=== PATIENT | female | born 1945 | race Caucasian/White ===

== ENCOUNTER 2018-01-30 13:30 | Outpatient (RCR) | payer MEDICARE, SELFPAY ==
[2018-01-09 13:47] VITALS: BP 149/86; PULSE 100; RESP 18; TEMP 35; BMI 31.8
--- NOTE | 2018-01-09 14:10 | WC ---
PT EXTREMELY IMPATIENT W/ NEW ADMIT QUESTIONS. REFUSED TO ANSWER SOME QUESTIONS. RUDE AT TIMES. COMPLETED MUCH OF ADMIT EVAL POSSIBLE. NOT COOPERATIVE W/ SOME RISK ASSESSMENTS. WILL UPDATE [employer] SAL[employer].
--- NOTE | 2018-01-09 14:51 | PCM.WC.HP ---
(1) Infected sebaceous cyst of skin Status: Chronic Current Visit: Yes Code(s): L72.3 - Sebaceous cyst; L08.9 - Local infection of the skin and subcutaneous tissue, unspecified (2) Obesity (BMI 30.0-34.9) Status: Chronic Current Visit: No Code(s): E66.9 - Obesity, unspecified (3) Hyperlipidemia Status: Chronic Current Visit: No Code(s): E78.5 - Hyperlipidemia, unspecified (4) Diabetes mellitus Status: Chronic Current Visit: Yes Qualifiers: Diabetes mellitus type: type 2 Diabetes mellitus complication status: with skin complications Diabetes mellitus complication detail: with other skin complication Code(s): E11.9 - Type 2 diabetes mellitus without complications (5) Hypertension Status: Chronic Current Visit: No Code(s): I10 - Essential (primary) hypertension (6) Colitis Status: Chronic Current Visit: No Code(s): K52.9 - Noninfective gastroenteritis and colitis, unspecified History of Present Illness Date of Service: 01/09/18 Chief Complaint: Chronic, nonhealing infected sebaceous cyst, right scapular area History of Wound: This is a 72-year-old female who presents with an infected sebaceous cyst cavity which has been present since July 2017. On July 07, 2017, patient noted purulent drainage from the cyst in the right scapular area. She indicates that there was a bump at this site prior to the development of an infection. This was presumably a small subcutaneous cyst. The patient presented to her primary care physician, who treated the patient with oral antibiotics for approximately 10 days. No cultures were performed. The patient's primary care physician conveyed his expectation that the site would subsequently heal, but it has not done so since it initially occurred in July 2017. When the patient was asked how she has been treating the site, she indicates that I cannot even reach it. In other words, no local care has been implemented. The patient lives alone, and has no family members or neighbors who can assist. Upon presentation today, the patient complains of a cyst that will not go away. The patient is known to be diabetic, and indicates that her hemoglobin A1c runs generally between 7 and 9. She was hospitalized at [facility] in [place] for 3 days approximately 3 weeks ago for diarrhea. Past Medical History Past Medical History: Chronic Problems Infected sebaceous cyst of skin (Chronic) Obesity (BMI 30.0-34.9) (Chronic) Hyperlipidemia (Chronic) Diabetes mellitus (Chronic) Hypertension (Chronic) Colitis (Chronic) Past Medical History: The patient has a history of diabetes mellitus, hyperlipidemia, hypertension, and colitis. Her history is negative for myocardial infarction, congestive heart failure, cerebrovascular accident, pulmonary disease, and renal disease. Surgical History: - - Patient is undergone thyroidectomy in July 2017. She is undergone bilateral vein stripping procedures. The ganglion has been excised from her right wrist. She is undergone laparoscopy in the past. She has had bilateral cataract surgery. Right thumb trigger finger surgery has been performed in the past. The patient is a Ab0. Allergies/Adverse Reactions: Allergies acetaminophen [From Vicodin] Allergy (Verified 01/09/18 14:02) Itching cat dander Allergy (Verified 01/09/18 14:04) Unknown dog dander Allergy (Verified 01/09/18 14:04) Unknown hydrocodone bitartrate [From Vicodin] Allergy (Verified 01/09/18 14:02) Itching levofloxacin [From Levaquin] Adverse Reaction (Verified 01/09/18 14:40) Rash beer Adverse Reaction (Uncoded 01/09/18 14:04) Unknown wine Adverse Reaction (Uncoded 01/09/18 14:04) Unknown Home Medications: Ambulatory Orders Medication Instructions Recorded Ascorbic Acid [Vitamin C] 1,000 mg PO DAILY@0800 01/11/14 Aspirin [Aspirin, Baby] 81 mg PO DAILY@0800 01/11/14 Atorvastatin Calcium [Lipitor] 20 mg PO QHS 01/11/14 Calcium Carb/Vitamin D 1 tab PO BIDCM 01/11/14 [Caltrate-600 With Vit D Tab] Celecoxib [Celebrex] 200 mg PO DAILY 01/11/14 Glimepiride [Amaryl] 4 mg PO BID 01/11/14 Lisinopril/Hydrochlorothiazide 1 tablet PO DAILY 01/11/14 [Zestoretic 20/25 Tablet] Multivit-Min/FA/Lycopene/Lut 1 each PO DAILY 01/11/14 [Centrum Silver Tablet] Tizanidine HCl [Zanaflex] 2 mg PO BID 01/11/14 traMADol [Ultram (G)] 100 mg PO TID 01/11/14 Esomeprazole Mag Trihydrate mg PO 01/09/18 [Nexium] Guaifenesin/Pseudoephedrne HCl 1 each PO 01/09/18 [Mucinex D ER 1,200-120 mg Tab] Insulin NPH/Reg 70/30 [Novolin 60 units SC QHS 01/09/18 70/30] Levothyroxine [Synthroid] 125 mcg PO DAILY 01/09/18 Montelukast [Singulair] 10 mg PO DAILY 01/09/18 Vit A/Vit C/Vit E/Zinc/Copper 1 each PO BID 01/09/18 [Preservision Areds Softgel] - Family History Paternal - - Patient is uncertain as to her father's medical history. Her mother at age of 52 with a history of alcoholism and hepatic cirrhosis. Lives: Alone Smoking Status: Never smoker Tobacco Use: Non-smoker Alcohol: None Drugs: None Review of Systems Constitutional: Denies: Chills, Fever, Weight Change Eyes: Denies: Pain, Vision Change HEENT: Denies: Difficulty Hearing, Difficulty Swallowing, Sinus Congestion Cardiovascular: Denies: Chest Pain, Palpitations Respiratory: Denies: Cough, Shortness of Breath Gastrointestinal: Denies: Diarrhea, Nausea, Vomiting Genitourinary: Denies: Dysuria, Hematuria Endocrine: Denies: Heat/ Cold Intolerance, Polydipsia, Polyuria Hematologic/ Lymphatic: Denies: Easy Bruising, Easy Bleeding - Physical Exam Vital Signs Temp Pulse Resp BP 95 F L 100 18 149/86 H 01/09/18 13:47 01/09/18 13:47 01/09/18 13:47 01/09/18 13:47 General: Alert, Oriented x3, Cooperative, No apparent distress, Well developed, Well nourished HEENT: Atraumatic, PERRLA, EOMI, Normocephalic Oral: Moist Mucosa, No Gingival or Mucosal Lesions/ Ulcerations Neck: Supple, No JVD, Negative Carotid Bruits, Negative Hepatojugular Reflux, No Nodes, No Nuchal Rigidity, Trachea Midline Lungs: Clear to auscultation, Normal air movement, No rhonchi, No wheeze, No rales Cardiovascular: Regular rate, Regular Rhythm, Normal S1, Normal S2, No murmurs Abdomen: Soft, Non Tender, Non-Distended, Obese Extremities: No clubbing, No cyanosis, No edema Skin: - - A small opening is noted on the right scapular area. Upon application of manual pressure, abelino purulent material is expressed. This has been cultured both aerobically and anaerobically by means of swab. Only slight erythema is noted. Probing reveals a depth of only 2-3 mm. There is no significant undermining. Wound Measurements and Assessment - Nurse 1 - General Ulcer Measurement Start: 01/09/18 13:41 Freq: Status: Active Protocol: Activity Type Activity Date Activity User E-Sign Co-Sign Detail Recorded Client Recorded Date Recorded By Document 01/09/18 13:47 [facility] [id number] 01/09/18 13:55 [facility] 01/09/18 13:47 Wound Center Nurse 1 [Ulcer Assessment] #1- RIGHT SCAPULA -Combined with other wound No -Current Size (cm) - Length 0.2 -Current Size (cm) - Width 0.2 -Current Size (cm) - Depth 0.5 -Total Square Cm 0.04 -Date of Last Picture (Recall this 01/09/18 field) -Photo Taken Yes -Epithelialization None Present -Tunneling No -Undermining/Tunneling No -Circular Undermining No -Exudate Amt Small (1-33%) -Exudate Type Purulent -Wound Margin Distinct, Outline Attached -Structure Exposed N/A -Texture (Eve-wound Skin Appearance) Scarring -Moisture (Eve-wound Skin Appearance Assessed ) -Color (Eve-wound Skin Appearance) Erythema -Temperature (Eve-wound Skin No Abnormality Appearance) (Pt Warm) -Tenderness on Palpation (Eve-wound Yes Skin Appearance) -Ulcer Cleansing Rinsed/ Irrigated with Saline -Foul Odor after Cleansing No -Anesthetic Used 4% Lidocaine Solution - Nurse 2 - General Ulcer CM Notes Start: 01/09/18 13:41 Freq: Status: Active Protocol: Activity Type Activity Date Activity User E-Sign Co-Sign Detail Recorded Client Recorded Date Recorded By Document 01/09/18 14:33 [id number] 01/09/18 14:45 01/09/18 14:33 Wound Center Nurse 2 [Procedure/Treatment] -Time 14:34 -Correct Patient Yes -Correct Side, Site, Position Yes -Correct Procedure Yes -Procedure Performed No -Post Debridement Size (cm) - Length 0.2 -Post Debridement Size (cm) - Width 0.2 -Post Debridement Size (cm) - Depth 0.5 -Total Square Cm 0.04 -Wound/Ulcer Outcome Not Healed -Ulcer Cleansing Rinsed/ Irrigated with Saline -Foul Odor after Cleansing No -Bioengineered Tissue No -Topical Lidocaine (%) 4 -Lidocaine (ml) 5 -Bleeding Controlled with NA -Treatment Response Procedure Tolerated Well [See Physician Procedure note for Specifics] Musculoskeletal: No Muscle Wasting Neurological: Cranial nerves II-XII grossly intact, Neuro grossly intact Psych/Mental Status: Normal Affect, Appropriate, Alert and oriented to time, place, person, mood and affect Debridement Note Post-Debridement Measurements/Treatment WC - Nurse 2 - General Ulcer CM Notes Start: 01/09/18 13:41 Freq: Status: Active Protocol: Activity Type Activity Date Activity User E-Sign Co-Sign Detail Recorded Client Recorded Date Recorded By Document 01/09/18 14:33 [id number] 01/09/18 14:45 [email or web address] 01/09/18 14:33 Wound Center Nurse 2 #1- RIGHT SCAPULA -Time 14:34 -Correct Patient Yes -Correct Side, Site, Position Yes -Correct Procedure Yes -Procedure Performed No -Post Debridement Size (cm) - Length 0.2 -Post Debridement Size (cm) - Width 0.2 -Post Debridement Size (cm) - Depth 0.5 -Total Square Cm 0.04 -Wound/Ulcer Outcome Not Healed -Ulcer Cleansing Rinsed/ Irrigated with Saline -Foul Odor after Cleansing No -Bioengineered Tissue No -Topical Lidocaine (%) 4 -Lidocaine (ml) 5 -Bleeding Controlled with NA -Treatment Response Procedure Tolerated Well No debridement was completed today Assessment/Plan Active Problems Infected sebaceous cyst of skin (Chronic) Diabetes mellitus (Chronic) Assessment: This is a 72-year-old female with an apparent infected sebaceous cyst in the right scapular area. The cyst appears to have been present for many years prior to the infection, which developed in July 2017. Very little has been rendered in terms of care, but for a brief course of oral antibiotics in July 2017. Because the patient cannot reach the area involved, no local care has been provided. Plan: Cultures have been obtained, and will be awaited. Both aerobic and anaerobic culture swabs have been obtained. We will request recent laboratory results from the hospital in [place], [place], as the patient was hospitalized there only several weeks ago for diarrhea. Optimization of the patient's diabetes mellitus has been recommended. We are to pack the patient's abscess cavity with 1/4 inch Nu Gauze on a daily basis. Because of the area involved, home health nursing care will be required, as the patient has no family members or neighbors which can be of assistance. Patient will return in 1 week for reassessment. It is hoped that the site will heal Cervidil measures. However, ultimately, definitive excision of the cyst or cyst wall may be required for definitive management once the infection has resolved and healing occurred. Influenza vaccine was not administered today. Patient is not a smoker. Patient weighs 180 pounds. She stands 5 feet 3 inches tall. My is 31.9, which places her in a class I category. Weight loss has been recommended, with collaboration with her primary care physician.
--- NOTE | 2018-01-10 12:48 | WC ---
[facility] agency following with patient for dressing changes to the right shoulder. As was stated by Mrs. Schwarz during initial visit, she is not able to do her dressing changes due to location. She lives alone and does not have anyone around who can assist with her dressing changes. Home Health will be able to go out three days a week. Dr. Burnette verified daily dressing changes and mentioned having her come in on the off days for nurse visits. She was contacted regarding Nurse Visits for Thursday 01/11 & 01/13. She expressed concern and displeasure over travelling to the [facility] Center three times a week given limited funds and the hour it takes to get to the center. Information given to her regarding the necessity of having her dressing (10/06 Nu-Gauze Packing) changed daily. Reassurance given to try and have dressings changed to a different treatment regimen upon her follow-up visit with Dr. Burnette next Tuesday.
[2018-01-11 14:05] VITALS: BP 141/82; PULSE 95; RESP 20; TEMP 37.1; BMI 31.8
[2018-01-13 13:24] VITALS: BP 131/84; PULSE 88; RESP 18; TEMP 36.1; BMI 31.8
--- NOTE | 2018-01-13 15:19 | WC ---
Dressing orders changed and approved by Dr. Burnette Orders faxed to [facility] 10/06 NuGauze packing discontinued and replaced using SILVERCEL strips cut to 10/06 and lightly packed into right shoulder ulcer, and covered with gauze and secured with tape. Dressing to be changed every other day.
[2018-01-16 13:58] VITALS: BP 137/82; PULSE 89; RESP 16; TEMP 35.7; BMI 31.8
--- NOTE | 2018-01-16 14:50 | HP.PCM_ITS ---
(1) Infected sebaceous cyst of skin Status: Chronic Current Visit: Yes Code(s): L72.3 - Sebaceous cyst; L08.9 - Local infection of the skin and subcutaneous tissue, unspecified (2) Obesity (BMI 30.0-34.9) Status: Chronic Current Visit: No Code(s): E66.9 - Obesity, unspecified (3) Hyperlipidemia Status: Chronic Current Visit: No Code(s): E78.5 - Hyperlipidemia, unspecified (4) Diabetes mellitus Status: Chronic Current Visit: Yes Qualifiers: Diabetes mellitus type: type 2 Diabetes mellitus complication status: with skin complications Diabetes mellitus complication detail: with other skin complication Code(s): E11.9 - Type 2 diabetes mellitus without complications (5) Hypertension Status: Chronic Current Visit: No Code(s): I10 - Essential (primary) hypertension (6) Colitis Status: Chronic Current Visit: No Code(s): K52.9 - Noninfective gastroenteritis and colitis, unspecified History of Present Illness Date of Service: 01/16/18 Chief Complaint: Chronic, nonhealing infected sebaceous cyst, right scapular area History of Wound: This is a 72-year-old female who presented with an infected sebaceous cyst cavity which has been present since July 2017. On July 07, 2017, patient noted purulent drainage from the cyst in the right scapular area. She indicates that there was a bump at this site prior to the development of an infection. This was presumably a small subcutaneous cyst. The patient presented to her primary care physician, who treated the patient with oral antibiotics for approximately 10 days. No cultures were performed. The patient' s primary care physician conveyed his expectation that the site would subsequently heal, but it has not done so since it initially occurred in July 2017. When the patient was asked how she has been treating the site, she indicates that I cannot even reach it. In other words, no local care has been implemented. The patient lives alone, and has no family members or neighbors who can assist. Upon presentation today, the patient complains of a cyst that will not go away. The patient is known to be diabetic, and indicates that her hemoglobin A1c runs generally between 7 and 9. Past Medical History Past Medical History: Chronic Problems Infected sebaceous cyst of skin (Chronic) Obesity (BMI 30.0-34.9) (Chronic) Hyperlipidemia (Chronic) Diabetes mellitus (Chronic) Hypertension (Chronic) Colitis (Chronic) Surgical History: - - Patient is undergone thyroidectomy in July 2017. She is undergone bilateral vein stripping procedures. The ganglion has been excised from her right wrist. She is undergone laparoscopy in the past. She has had bilateral cataract surgery. Right thumb trigger finger surgery has been performed in the past. The patient is a Ab0. Allergies/Adverse Reactions: Allergies acetaminophen [From Vicodin] Allergy (Verified 01/09/18 14:02) Itching cat dander Allergy (Verified 01/09/18 14:04) Unknown dog dander Allergy (Verified 01/09/18 14:04) Unknown hydrocodone bitartrate [From Vicodin] Allergy (Verified 01/09/18 14:02) Itching levofloxacin [From Levaquin] Adverse Reaction (Verified 01/09/18 14:40) Rash beer Adverse Reaction (Uncoded 01/09/18 14:04) Unknown wine Adverse Reaction (Uncoded 01/09/18 14:04) Unknown Home Medications: Ambulatory Orders Medication Instructions Recorded Ascorbic Acid [Vitamin C] 1,000 mg PO DAILY@0800 01/11/14 Aspirin [Aspirin, Baby] 81 mg PO DAILY@0800 01/11/14 Atorvastatin Calcium [Lipitor] 20 mg PO QHS 01/11/14 Calcium Carb/Vitamin D 1 tab PO BIDCM 01/11/14 [Caltrate-600 With Vit D Tab] Celecoxib [Celebrex] 200 mg PO DAILY 01/11/14 Glimepiride [Amaryl] 4 mg PO BID 01/11/14 Lisinopril/Hydrochlorothiazide 1 tablet PO DAILY 01/11/14 [Zestoretic 20/25 Tablet] Multivit-Min/FA/Lycopene/Lut 1 each PO DAILY 01/11/14 [Centrum Silver Tablet] Tizanidine HCl [Zanaflex] 2 mg PO BID 01/11/14 traMADol [Ultram (G)] 100 mg PO TID 01/11/14 Esomeprazole Mag Trihydrate mg PO 01/09/18 [Nexium] Guaifenesin/Pseudoephedrne HCl 1 each PO 01/09/18 [Mucinex D ER 1,200-120 mg Tab] Insulin NPH/Reg 70/30 [Novolin 60 units SC QHS 01/09/18 70/30] Levothyroxine [Synthroid] 125 mcg PO DAILY 01/09/18 Montelukast [Singulair] 10 mg PO DAILY 01/09/18 Vit A/Vit C/Vit E/Zinc/Copper 1 each PO BID 01/09/18 [Preservision Areds Softgel] - Family History Paternal - - Patient is uncertain as to her father's medical history. Her mother at age of 52 with a history of alcoholism and hepatic cirrhosis. Lives: Alone Smoking Status: Never smoker Tobacco Use: Non-smoker Alcohol: None Drugs: None Review of Systems Constitutional: Denies: Chills, Fever, Weight Change Eyes: Denies: Pain, Vision Change HEENT: Denies: Difficulty Hearing, Difficulty Swallowing, Sinus Congestion Cardiovascular: Denies: Chest Pain, Palpitations Respiratory: Denies: Cough, Shortness of Breath Gastrointestinal: Denies: Diarrhea, Nausea, Vomiting Genitourinary: Denies: Dysuria, Hematuria Endocrine: Denies: Heat/ Cold Intolerance, Polydipsia, Polyuria Hematologic/ Lymphatic: Denies: Easy Bruising, Easy Bleeding - Physical Exam Vital Signs Temp Pulse Resp BP 96.2 F L 89 16 137/82 H 01/16/18 13:58 01/16/18 13:58 01/16/18 13:58 01/16/18 13:58 General: Alert, Oriented x3, Cooperative, No apparent distress, Well developed, Well nourished, - - The patient is obese HEENT: Atraumatic, PERRLA, EOMI, Normocephalic Oral: Moist Mucosa Neck: No JVD Lungs: Normal air movement Abdomen: Non-Distended Extremities: No clubbing, No cyanosis, No edema, No Calf Tenderness Skin: - - A small opening persists in the right scapular area. There is a cavity consistent with prior infected subcutaneous cyst. Dimensions are documented elsewhere. There is no significant change in size or appearance. There is slight erythema associated with the site. No significant drainage is noted. Wound Measurements and Assessment WC - Nurse 1 - General Ulcer Measurement Start: 01/09/18 13:41 Freq: Status: Active Protocol: Activity Type Activity Date Activity User E-Sign Co-Sign Detail Recorded Client Recorded Date Recorded By Document 01/16/18 13:58 [facility] [id number] 01/16/18 14:11 BMF 01/16/18 13:58 Wound Center Nurse 1 [Ulcer Assessment] #1- RIGHT SCAPULA -Combined with other wound No -Current Size (cm) - Length 0.2 -Current Size (cm) - Width 0.5 -Current Size (cm) - Depth 0.3 -Total Square Cm 0.10 -Photo Taken No -Epithelialization None Present -Tunneling No -Undermining/Tunneling No -Circular Undermining No -Exudate Amt Small (1-33%) -Exudate Type Serosanguineous -Wound Margin Distinct, Outline Attached -Granulation Amt Medium (34-66%) -Granulation Quality Red -Slough/Fibrin Yes -Necrosis Amt Small (1-33%) -Necrotic Tissue Type Adherent Slough -Texture (Eve-wound Skin Appearance) Scarring -Moisture (Eve-wound Skin Appearance Dry/Scaly ) -Color (Eve-wound Skin Appearance) Erythema -Temperature (Eve-wound Skin No Abnormality Appearance) (Pt Warm) -Tenderness on Palpation (Eev-wound Yes Skin Appearance) -Ulcer Cleansing Rinsed/ Irrigated with Saline -Foul Odor after Cleansing No -Anesthetic Used 5% Lidocaine Gel WC - Nurse 2 - General Ulcer CM Notes Start: 01/09/18 13:41 Freq: Status: Active Protocol: Activity Type Activity Date Activity User E-Sign Co-Sign Detail Recorded Client Recorded Date Recorded By Document 01/16/18 14:31 [email or web address] [id number] 01/16/18 14:34 [email or web address] 01/16/18 14:31 Wound Center Nurse 2 [Procedure/Treatment] -Time 14:31 -Correct Patient Yes -Correct Side, Site, Position Yes -Correct Procedure Yes -Procedure Performed No -Post Debridement Size (cm) - Length 0.2 -Post Debridement Size (cm) - Width 0.5 -Post Debridement Size (cm) - Depth 0.7 -Total Square Cm 0.10 -Ulcer Cleansing Rinsed/ Irrigated with Saline -Foul Odor after Cleansing No -Bioengineered Tissue No -Topical Lidocaine (%) 4 -Lidocaine (ml) 5 -Bleeding Controlled with NA -Treatment Response Procedure Tolerated Well [See Physician Procedure note for Specifics] Pain Scale: 0-10 Numeric [Pain] -Is Patient Pain Free? Yes Musculoskeletal: No Muscle Wasting Neurological: Cranial nerves II-XII grossly intact, Neuro grossly intact Psych/Mental Status: Normal Affect, Appropriate, Alert and oriented to time, place, person, mood and affect Debridement Note Post-Debridement Measurements/Treatment WC - Nurse 2 - General Ulcer CM Notes Start: 01/09/18 13:41 Freq: Status: Active Protocol: Activity Type Activity Date Activity User E-Sign Co-Sign Detail Recorded Client Recorded Date Recorded By Document 01/09/18 14:33 [id number] 01/09/18 14:45 JS Document 01/16/18 14:31 [id number] 01/16/18 14:34 JS 01/09/18 01/16/18 14:33 14:31 Wound Center Nurse 2 #1- RIGHT SCAPULA -Time 14:34 14:31 -Correct Patient Yes Yes -Correct Side, Site, Position Yes Yes -Correct Procedure Yes Yes -Procedure Performed No No -Post Debridement Size (cm) - Length 0.2 0.2 -Post Debridement Size (cm) - Width 0.2 0.5 -Post Debridement Size (cm) - Depth 0.5 0.7 -Total Square Cm 0.04 0.10 -Wound/Ulcer Outcome Not Healed -Ulcer Cleansing Rinsed/ Rinsed/ Irrigated with Irrigated with Saline Saline -Foul Odor after Cleansing No No -Bioengineered Tissue No No -Topical Lidocaine (%) 4 4 -Lidocaine (ml) 5 5 -Bleeding Controlled with NA NA -Treatment Response Procedure Procedure Tolerated Well Tolerated Well Pain Scale: 0-10 Numeric Is Patient Pain Free? Yes No debridement was completed today Assessment/Plan Active Problems Infected sebaceous cyst of skin (Chronic) Diabetes mellitus (Chronic) Assessment: This is a 72-year-old female with an apparent infected sebaceous cyst in the right scapular area. The cyst appears to have been present for many years prior to the infection, which developed in July 2017. Very little has been rendered in terms of care, but for a brief course of oral antibiotics in July 2017. Because the patient cannot reach the area involved , no local care had been implemented prior to her presentation here. A culture the patient's wound, obtained at her initial visit, was positive for MRSA. Plan: Cultures have been obtained, and are positive for MRSA. Patient has been started on doxycycline 100 mg p.o. twice daily for total of 14 days. We are using silver cell to pack the wound. Home health care nursing has been recruited to assist in daily wound care. Laboratory studies have been reviewed from the hospital in [place]. But for mild anemia, there are no significant abnormalities noted. Optimization of the patient's diabetes mellitus has been recommended. We will continue packing the patient's wound with Silver Renetta. Because of the area involved, home health nursing care will be continued, as the patient has no family members or neighbors which can be of assistance. Patient will return in 1 week for reassessment. It is hoped that the site will heal by conservative measures. However, ultimately, definitive excision of the cyst or cyst wall may be required for definitive management once the infection has resolved and healing occurred. Influenza vaccine was not administered today. Patient is not a smoker. Patient weighs 180 pounds. She stands 5 feet 3 inches tall. My is 31.9, which places her in a class I category. Weight loss has been recommended, with collaboration with her primary care physician.
--- NOTE | 2018-01-23 09:51 | WC ---
Tuesday01/20/18 16:45 Mrs. Schwarz called-in expressing frustration over phone conversation with Home Health, who instructed her to contact the Wound Center right away in regards to dressing changes (Shoulder dressing was last changed Tuesday, and will not be changed till Tuesday). [facility] contacted ([facility]) to provide care. Demographics, Orders, and Progress Notes faxed to the agency at 4:50 pm ). Plans were for her to be seen on Tuesday. Tuesday01/23/18 09:35 am F/U call to [facility] regarding Tuesday's visit. Informed that fax was not received (wrong fax #), patient was not seen, however agency did speak with Mrs. Schwarz. Demographics, Orders, and Progress Notes re-faxed to ) the agency today at 10:12 am; fax receipt received. Patient is scheduled to be seen by Dr. Burnette today @ 3:30 in the Wound Center.
[2018-01-23 16:05] VITALS: BP 137/73; PULSE 96; RESP 18; TEMP 36.3; BMI 31.8
--- NOTE | 2018-01-23 16:47 | PCM.WC.HP ---
(1) Infected sebaceous cyst of skin Status: Chronic Current Visit: Yes Code(s): L72.3 - Sebaceous cyst; L08.9 - Local infection of the skin and subcutaneous tissue, unspecified (2) Obesity (BMI 30.0-34.9) Status: Chronic Current Visit: No Code(s): E66.9 - Obesity, unspecified (3) Hyperlipidemia Status: Chronic Current Visit: No Code(s): E78.5 - Hyperlipidemia, unspecified (4) Diabetes mellitus Status: Chronic Current Visit: Yes Qualifiers: Diabetes mellitus type: type 2 Diabetes mellitus complication status: with skin complications Diabetes mellitus complication detail: with other skin complication Code(s): E11.9 - Type 2 diabetes mellitus without complications (5) Hypertension Status: Chronic Current Visit: No Qualifiers: Hypertension type: essential hypertension Qualified Code(s): I10 - Essential (primary) hypertension Code(s): I10 - Essential (primary) hypertension (6) Colitis Status: Chronic Current Visit: No Code(s): K52.9 - Noninfective gastroenteritis and colitis, unspecified History of Present Illness Date of Service: 01/23/18 Chief Complaint: Chronic, nonhealing infected sebaceous cyst, right scapular area History of Wound: This is a 72-year-old female who presented with an infected sebaceous cyst cavity which has been present since July 2017. On July 07, 2017, patient noted purulent drainage from the cyst in the right scapular area. She indicates that there was a bump at this site prior to the development of an infection. This was presumably a small subcutaneous cyst. The patient presented to her primary care physician, who treated the patient with oral antibiotics for approximately 10 days. No cultures were performed. The patient's primary care physician conveyed his expectation that the site would subsequently heal, but it has not done so since it initially occurred in July 2017. When the patient was asked how she has been treating the site, she indicates that I cannot even reach it. In other words, no local care had been implemented. The patient lives alone, and has no family members or neighbors who can assist. Upon presentation today, the patient complains of a cyst that will not go away. The patient is known to be diabetic, and indicates that her hemoglobin A1c runs generally between 7 and 9. Past Medical History Past Medical History: Chronic Problems Infected sebaceous cyst of skin (Chronic) Obesity (BMI 30.0-34.9) (Chronic) Hyperlipidemia (Chronic) Diabetes mellitus (Chronic) Hypertension (Chronic) Colitis (Chronic) Surgical History: - - Patient is undergone thyroidectomy in July 2017. She is undergone bilateral vein stripping procedures. The ganglion has been excised from her right wrist. She is undergone laparoscopy in the past. She has had bilateral cataract surgery. Right thumb trigger finger surgery has been performed in the past. The patient is a Ab0. Allergies/Adverse Reactions: Allergies acetaminophen [From Vicodin] Allergy (Verified 01/09/18 14:02) Itching cat dander Allergy (Verified 01/09/18 14:04) Unknown dog dander Allergy (Verified 01/09/18 14:04) Unknown hydrocodone bitartrate [From Vicodin] Allergy (Verified 01/09/18 14:02) Itching levofloxacin [From Levaquin] Adverse Reaction (Verified 01/09/18 14:40) Rash beer Adverse Reaction (Uncoded 01/09/18 14:04) Unknown wine Adverse Reaction (Uncoded 01/09/18 14:04) Unknown Home Medications: Ambulatory Orders Medication Instructions Recorded Ascorbic Acid [Vitamin C] 1,000 mg PO DAILY@0800 01/11/14 Aspirin [Aspirin, Baby] 81 mg PO DAILY@0800 01/11/14 Atorvastatin Calcium [Lipitor] 20 mg PO QHS 01/11/14 Calcium Carb/Vitamin D 1 tab PO BIDCM 01/11/14 [Caltrate-600 With Vit D Tab] Celecoxib [Celebrex] 200 mg PO DAILY 01/11/14 Glimepiride [Amaryl] 4 mg PO BID 01/11/14 Lisinopril/Hydrochlorothiazide 1 tablet PO DAILY 01/11/14 [Zestoretic 20/25 Tablet] Multivit-Min/FA/Lycopene/Lut 1 each PO DAILY 01/11/14 [Centrum Silver Tablet] Tizanidine HCl [Zanaflex] 2 mg PO BID 01/11/14 traMADol [Ultram (G)] 100 mg PO TID 01/11/14 Esomeprazole Mag Trihydrate mg PO 01/09/18 [Nexium] Guaifenesin/Pseudoephedrne HCl 1 each PO 01/09/18 [Mucinex D ER 1,200-120 mg Tab] Insulin NPH/Reg 70/30 [Novolin 60 units SC QHS 01/09/18 70/30] Levothyroxine [Synthroid] 125 mcg PO DAILY 01/09/18 Montelukast [Singulair] 10 mg PO DAILY 01/09/18 Vit A/Vit C/Vit E/Zinc/Copper 1 each PO BID 01/09/18 [Preservision Areds Softgel] - Family History Paternal - - Patient is uncertain as to her father's medical history. Her mother at age of 52 with a history of alcoholism and hepatic cirrhosis. Lives: Alone Smoking Status: Never smoker Tobacco Use: Non-smoker Alcohol: None Drugs: None Review of Systems Constitutional: Denies: Chills, Fever, Weight Change Eyes: Denies: Pain, Vision Change HEENT: Denies: Difficulty Hearing, Difficulty Swallowing, Sinus Congestion Cardiovascular: Denies: Chest Pain, Palpitations Respiratory: Denies: Cough, Shortness of Breath Gastrointestinal: Denies: Diarrhea, Nausea, Vomiting Genitourinary: Denies: Dysuria, Hematuria Endocrine: Denies: Heat/ Cold Intolerance, Polydipsia, Polyuria Hematologic/ Lymphatic: Denies: Easy Bruising, Easy Bleeding - Physical Exam Vital Signs Temp Pulse Resp BP 97.3 F L 96 18 137/73 H 01/23/18 16:05 01/23/18 16:05 01/23/18 16:05 01/23/18 16:05 General: Alert, Oriented x3, Cooperative, No apparent distress, Well developed, Well nourished HEENT: Atraumatic, PERRLA, EOMI, Normocephalic Oral: Moist Mucosa Neck: No JVD Lungs: Normal air movement Abdomen: Non-Distended Extremities: No clubbing, No cyanosis, No edema, No Calf Tenderness Skin: No rashes, - - The abscess cavity in the right scapular area is smaller in size. Dimensions are documented elsewhere. There is no significant erythema or cellulitis. Wound Measurements and Assessment WC - Nurse 1 - General Ulcer Measurement Start: 01/09/18 13:41 Freq: Status: Active Protocol: Activity Type Activity Date Activity User E-Sign Co-Sign Detail Recorded Client Recorded Date Recorded By Document 01/23/18 16:05 MANOLO [id number] 01/23/18 16:13 MANOLO 04/23/18 16:05 Wound Center Nurse 1 [Ulcer Assessment] #1- RIGHT SCAPULA -Combined with other wound No -Current Size (cm) - Length 0.3 -Current Size (cm) - Width 0.6 -Current Size (cm) - Depth 0.3 -Total Square Cm 0.18 -Photo Taken No -Epithelialization Small 1-33% -Tunneling No -Undermining/Tunneling No -Circular Undermining No -Exudate Amt Small (1-33%) -Exudate Type Serosanguineous -Wound Margin Flat & Intact -Granulation Amt Large (67-100%) -Granulation Quality Red -Slough/Fibrin Yes -Necrosis Amt Small (1-33%) -Necrotic Tissue Type Adherent Slough -Structure Exposed N/A -Texture (Eve-wound Skin Appearance) Assessed -Moisture (Eve-wound Skin Appearance Assessed ) Dry/Scaly -Color (Eve-wound Skin Appearance) Assessed -Temperature (Eve-wound Skin No Abnormality Appearance) (Pt Warm) -Tenderness on Palpation (Eve-wound No Skin Appearance) -Ulcer Cleansing Rinsed/ Irrigated with Saline -Foul Odor after Cleansing No -Anesthetic Used 4% Lidocaine Solution [Edema Assessment] -Lower Limb Edema Present NA - Nurse 2 - General Ulcer CM Notes Start: 01/09/18 13:41 Freq: Status: Active Protocol: Activity Type Activity Date Activity User E-Sign Co-Sign Detail Recorded Client Recorded Date Recorded By Document 01/23/18 16:38 [id number] 01/23/18 16:40 01/23/18 16:38 Wound Center Nurse 2 [Procedure/Treatment] #1- RIGHT SCAPULA -Time 16:39 -Correct Patient Yes -Correct Side, Site, Position Yes -Correct Procedure Yes -Procedure Performed Yes -Type of Procedure Debridement -Clinical Debridement Subcutaneous -Post Debridement Size (cm) - Length 0.3 -Post Debridement Size (cm) - Width 0.6 -Post Debridement Size (cm) - Depth 0.5 -Total Square Cm 0.18 -Wound/Ulcer Outcome Not Healed -Ulcer Cleansing Rinsed/ Irrigated with Saline -Foul Odor after Cleansing No -Bioengineered Tissue No -Bleeding Controlled with Pressure -Treatment Response Procedure Tolerated Well [See Physician Procedure note for Specifics] Pain Scale: 0-10 Numeric [Pain] -Is Patient Pain Free? Yes Neurological: Cranial nerves II-XII grossly intact, Neuro grossly intact Psych/Mental Status: Normal Affect, Appropriate, Alert and oriented to time, place, person, mood and affect Debridement Note Post-Debridement Measurements/Treatment WC - Nurse 2 - General Ulcer CM Notes Start: 01/09/18 13:41 Freq: Status: Active Protocol: Activity Type Activity Date Activity User E-Sign Co-Sign Detail Recorded Client Recorded Date Recorded By Document 01/09/18 14:33 [id number] 01/09/18 14:45 JS Document 01/16/18 14:31 JS [id number] 01/16/18 14:34 JS Document 01/23/18 16:38 [id number] 01/23/18 16:40 01/09/18 01/16/18 01/23/18 14:33 14:31 16:38 Wound Center Nurse 2 #1- RIGHT SCAPULA -Time 14:34 14:31 16:39 -Correct Patient Yes Yes Yes -Correct Side, Site, Position Yes Yes Yes -Correct Procedure Yes Yes Yes -Procedure Performed No No Yes -Type of Procedure Debridement -Clinical Debridement Subcutaneous -Post Debridement Size (cm) - Length 0.2 0.2 0.3 -Post Debridement Size (cm) - Width 0.2 0.5 0.6 -Post Debridement Size (cm) - Depth 0.5 0.7 0.5 -Total Square Cm 0.04 0.10 0.18 -Wound/Ulcer Outcome Not Healed Not Healed -Ulcer Cleansing Rinsed/ Rinsed/ Rinsed/ Irrigated with Irrigated with Irrigated with Saline Saline Saline -Foul Odor after Cleansing No No No -Bioengineered Tissue No No No -Topical Lidocaine (%) 4 4 -Lidocaine (ml) 5 5 -Bleeding Controlled with NA NA Pressure -Treatment Response Procedure Procedure Procedure Tolerated Well Tolerated Well Tolerated Well Pain Scale: 0-10 Numeric Is Patient Pain Free? Yes Yes Laterality: Right - Scapular abscess cavity Type of Debridement: Excisional debridement Anesthesia Used: 4% Lidocaine Solution Depth: Down to and including healthy tissue, in the subcutaneous layer Percentage of wound debrided: 100 Instrument Used: 5mm curette Severity: Fat Layer Exposed Amount of bleeding with debridement: Mild Bleeding Controlled with: Compression and gauze Patient tolerated procedure well Assessment/Plan Active Problems Infected sebaceous cyst of skin (Chronic) Diabetes mellitus (Chronic) Assessment: This is a 72-year-old female with an apparent infected sebaceous cyst in the right scapular area. The cyst appears to have been present for many years prior to the infection, which developed in July 2017. Very little had been rendered in terms of care, but for a brief course of oral antibiotics in July 2017. Because the patient cannot reach the area involved, no local care had been implemented prior to her presentation here. A culture the patient's wound, obtained at her initial visit, was positive for MRSA. The patient was started on doxycycline 100 mg p.o. twice daily for total of 14 days, which continues until the current time. We have implemented the use of Silver Renetta, in anticipation that this would be changed by home health nursing every day or every other day. However, there has been some difficulty in arranging home health nursing care, the patient has been without attention to the wound since her last visit here. Efforts are underway to arrange home health nursing care, but with difficulties. The patient again denies that she has any friends or relatives who can assist her in the management of her wound. The location of the wound precludes the patient from packing by herself. She has been offered the option of returning to the wound center periodically, but has transportation issues. The patient's labs have been reviewed, and are relatively unremarkable. She has a mild anemia with a hemoglobin of 11.1 and hematocrit of 33.7. Platelet count is 214,000. MERLE globin A1c is 9.0. Patient's potassium is 3.7. Sodium is 139, chloride 104, BUN 13, creatinine 0.9, glucose 202. Plan: Cultures have been obtained, and are positive for MRSA. Patient has been started on doxycycline 100 mg p.o. twice daily for total of 14 days. We are using Silver Renetta to pack the wound. Home health care nursing has been recruited to assist in daily wound care, but difficulties have been encountered, and troubleshooting continues. Optimization of the patient's diabetes mellitus has been recommended. We will continue packing the patient's wound with Silver Renetta. We are to continue to arrange home health nursing care for wound packing changes. Because of the area involved, home health nursing care will be continued, as the patient has no family members or neighbors which can be of assistance. Patient will return in 1 week for reassessment. It is hoped that the site will heal by conservative measures. However, ultimately, definitive excision of the cyst or cyst wall may be required for definitive management once the infection has resolved and healing occurred. Influenza vaccine was not administered today. Patient is not a smoker. Patient weighs 180 pounds. She stands 5 feet 3 inches tall. My is 31.9, which places her in a class I category. Weight loss has been recommended, with collaboration with her primary care physician.
--- NOTE | 2018-01-23 16:56 | HP.PCM_ITS ---
(1) Infected sebaceous cyst of skin Status: Chronic Current Visit: Yes Code(s): L72.3 - Sebaceous cyst; L08.9 - Local infection of the skin and subcutaneous tissue, unspecified (2) Obesity (BMI 30.0-34.9) Status: Chronic Current Visit: No Code(s): E66.9 - Obesity, unspecified (3) Hyperlipidemia Status: Chronic Current Visit: No Code(s): E78.5 - Hyperlipidemia, unspecified (4) Diabetes mellitus Status: Chronic Current Visit: Yes Qualifiers: Diabetes mellitus type: type 2 Diabetes mellitus complication status: with skin complications Diabetes mellitus complication detail: with other skin complication Code(s): E11.9 - Type 2 diabetes mellitus without complications (5) Hypertension Status: Chronic Current Visit: No Qualifiers: Hypertension type: essential hypertension Qualified Code(s): I10 - Essential (primary) hypertension Code(s): I10 - Essential (primary) hypertension (6) Colitis Status: Chronic Current Visit: No Code(s): K52.9 - Noninfective gastroenteritis and colitis, unspecified History of Present Illness Date of Service: 01/23/18 Chief Complaint: Chronic, nonhealing infected sebaceous cyst, right scapular area History of Wound: This is a 72-year-old female who presented with an infected sebaceous cyst cavity which has been present since July 2017. On July 07, 2017, patient noted purulent drainage from the cyst in the right scapular area. She indicates that there was a bump at this site prior to the development of an infection. This was presumably a small subcutaneous cyst. The patient presented to her primary care physician, who treated the patient with oral antibiotics for approximately 10 days. No cultures were performed. The patient' s primary care physician conveyed his expectation that the site would subsequently heal, but it has not done so since it initially occurred in July 2017. When the patient was asked how she has been treating the site, she indicates that I cannot even reach it. In other words, no local care had been implemented. The patient lives alone, and has no family members or neighbors who can assist. Upon presentation today, the patient complains of a cyst that will not go away. The patient is known to be diabetic, and indicates that her hemoglobin A1c runs generally between 7 and 9. Past Medical History Past Medical History: Chronic Problems Infected sebaceous cyst of skin (Chronic) Obesity (BMI 30.0-34.9) (Chronic) Hyperlipidemia (Chronic) Diabetes mellitus (Chronic) Hypertension (Chronic) Colitis (Chronic) Surgical History: - - Patient is undergone thyroidectomy in July 2017. She is undergone bilateral vein stripping procedures. The ganglion has been excised from her right wrist. She is undergone laparoscopy in the past. She has had bilateral cataract surgery. Right thumb trigger finger surgery has been performed in the past. The patient is a Ab0. Allergies/Adverse Reactions: Allergies acetaminophen [From Vicodin] Allergy (Verified 01/09/18 14:02) Itching cat dander Allergy (Verified 01/09/18 14:04) Unknown dog dander Allergy (Verified 01/09/18 14:04) Unknown hydrocodone bitartrate [From Vicodin] Allergy (Verified 01/09/18 14:02) Itching levofloxacin [From Levaquin] Adverse Reaction (Verified 01/09/18 14:40) Rash beer Adverse Reaction (Uncoded 01/09/18 14:04) Unknown wine Adverse Reaction (Uncoded 01/09/18 14:04) Unknown Home Medications: Ambulatory Orders Medication Instructions Recorded Ascorbic Acid [Vitamin C] 1,000 mg PO DAILY@0800 01/11/14 Aspirin [Aspirin, Baby] 81 mg PO DAILY@0800 01/11/14 Atorvastatin Calcium [Lipitor] 20 mg PO QHS 01/11/14 Calcium Carb/Vitamin D 1 tab PO BIDCM 01/11/14 [Caltrate-600 With Vit D Tab] Celecoxib [Celebrex] 200 mg PO DAILY 01/11/14 Glimepiride [Amaryl] 4 mg PO BID 01/11/14 Lisinopril/Hydrochlorothiazide 1 tablet PO DAILY 01/11/14 [Zestoretic 20/25 Tablet] Multivit-Min/FA/Lycopene/Lut 1 each PO DAILY 01/11/14 [Centrum Silver Tablet] Tizanidine HCl [Zanaflex] 2 mg PO BID 01/11/14 traMADol [Ultram (G)] 100 mg PO TID 01/11/14 Esomeprazole Mag Trihydrate mg PO 01/09/18 [Nexium] Guaifenesin/Pseudoephedrne HCl 1 each PO 01/09/18 [Mucinex D ER 1,200-120 mg Tab] Insulin NPH/Reg 70/30 [Novolin 60 units SC QHS 01/09/18 70/30] Levothyroxine [Synthroid] 125 mcg PO DAILY 01/09/18 Montelukast [Singulair] 10 mg PO DAILY 01/09/18 Vit A/Vit C/Vit E/Zinc/Copper 1 each PO BID 01/09/18 [Preservision Areds Softgel] - Family History Paternal - - Patient is uncertain as to her father's medical history. Her mother at age of 52 with a history of alcoholism and hepatic cirrhosis. Lives: Alone Smoking Status: Never smoker Tobacco Use: Non-smoker Alcohol: None Drugs: None Review of Systems Constitutional: Denies: Chills, Fever, Weight Change Eyes: Denies: Pain, Vision Change HEENT: Denies: Difficulty Hearing, Difficulty Swallowing, Sinus Congestion Cardiovascular: Denies: Chest Pain, Palpitations Respiratory: Denies: Cough, Shortness of Breath Gastrointestinal: Denies: Diarrhea, Nausea, Vomiting Genitourinary: Denies: Dysuria, Hematuria Endocrine: Denies: Heat/ Cold Intolerance, Polydipsia, Polyuria Hematologic/ Lymphatic: Denies: Easy Bruising, Easy Bleeding - Physical Exam Vital Signs Temp Pulse Resp BP 97.3 F L 96 18 137/73 H 01/23/18 16:05 01/23/18 16:05 01/23/18 16:05 01/23/18 16:05 General: Alert, Oriented x3, Cooperative, No apparent distress, Well developed, Well nourished HEENT: Atraumatic, PERRLA, EOMI, Normocephalic Oral: Moist Mucosa Neck: No JVD Lungs: Normal air movement Abdomen: Non-Distended Extremities: No clubbing, No cyanosis, No edema, No Calf Tenderness Skin: No rashes, - - The abscess cavity in the right scapular area is smaller in size. Dimensions are documented elsewhere. There is no significant erythema or cellulitis. Wound Measurements and Assessment WC - Nurse 1 - General Ulcer Measurement Start: 01/09/18 13:41 Freq: Status: Active Protocol: Activity Type Activity Date Activity User E-Sign Co-Sign Detail Recorded Client Recorded Date Recorded By Document 01/23/18 16:05 MANOLO [id number] 01/23/18 16:13 MANOLO 04/23/18 16:05 Wound Center Nurse 1 [Ulcer Assessment] #1- RIGHT SCAPULA -Combined with other wound No -Current Size (cm) - Length 0.3 -Current Size (cm) - Width 0.6 -Current Size (cm) - Depth 0.3 -Total Square Cm 0.18 -Photo Taken No -Epithelialization Small 1-33% -Tunneling No -Undermining/Tunneling No -Circular Undermining No -Exudate Amt Small (1-33%) -Exudate Type Serosanguineous -Wound Margin Flat & Intact -Granulation Amt Large (67-100%) -Granulation Quality Red -Slough/Fibrin Yes -Necrosis Amt Small (1-33%) -Necrotic Tissue Type Adherent Slough -Structure Exposed N/A -Texture (Eve-wound Skin Appearance) Assessed -Moisture (Eve-wound Skin Appearance Assessed ) Dry/Scaly -Color (Eve-wound Skin Appearance) Assessed -Temperature (Eve-wound Skin No Abnormality Appearance) (Pt Warm) -Tenderness on Palpation (Eve-wound No Skin Appearance) -Ulcer Cleansing Rinsed/ Irrigated with Saline -Foul Odor after Cleansing No -Anesthetic Used 4% Lidocaine Solution [Edema Assessment] -Lower Limb Edema Present NA - Nurse 2 - General Ulcer CM Notes Start: 01/09/18 13:41 Freq: Status: Active Protocol: Activity Type Activity Date Activity User E-Sign Co-Sign Detail Recorded Client Recorded Date Recorded By Document 01/23/18 16:38 [id number] 01/23/18 16:40 01/23/18 16:38 Wound Center Nurse 2 [Procedure/Treatment] #1- RIGHT SCAPULA -Time 16:39 -Correct Patient Yes -Correct Side, Site, Position Yes -Correct Procedure Yes -Procedure Performed Yes -Type of Procedure Debridement -Clinical Debridement Subcutaneous -Post Debridement Size (cm) - Length 0.3 -Post Debridement Size (cm) - Width 0.6 -Post Debridement Size (cm) - Depth 0.5 -Total Square Cm 0.18 -Wound/Ulcer Outcome Not Healed -Ulcer Cleansing Rinsed/ Irrigated with Saline -Foul Odor after Cleansing No -Bioengineered Tissue No -Bleeding Controlled with Pressure -Treatment Response Procedure Tolerated Well [See Physician Procedure note for Specifics] Pain Scale: 0-10 Numeric [Pain] -Is Patient Pain Free? Yes Neurological: Cranial nerves II-XII grossly intact, Neuro grossly intact Psych/Mental Status: Normal Affect, Appropriate, Alert and oriented to time, place, person, mood and affect Debridement Note Post-Debridement Measurements/Treatment WC - Nurse 2 - General Ulcer CM Notes Start: 01/09/18 13:41 Freq: Status: Active Protocol: Activity Type Activity Date Activity User E-Sign Co-Sign Detail Recorded Client Recorded Date Recorded By Document 01/09/18 14:33 [id number] 01/09/18 14:45 JS Document 01/16/18 14:31 JS [id number] 01/16/18 14:34 JS Document 01/23/18 16:38 [id number] 01/23/18 16:40 01/09/18 01/16/18 01/23/18 14:33 14:31 16:38 Wound Center Nurse 2 #1- RIGHT SCAPULA -Time 14:34 14:31 16:39 -Correct Patient Yes Yes Yes -Correct Side, Site, Position Yes Yes Yes -Correct Procedure Yes Yes Yes -Procedure Performed No No Yes -Type of Procedure Debridement -Clinical Debridement Subcutaneous -Post Debridement Size (cm) - Length 0.2 0.2 0.3 -Post Debridement Size (cm) - Width 0.2 0.5 0.6 -Post Debridement Size (cm) - Depth 0.5 0.7 0.5 -Total Square Cm 0.04 0.10 0.18 -Wound/Ulcer Outcome Not Healed Not Healed -Ulcer Cleansing Rinsed/ Rinsed/ Rinsed/ Irrigated with Irrigated with Irrigated with Saline Saline Saline -Foul Odor after Cleansing No No No -Bioengineered Tissue No No No -Topical Lidocaine (%) 4 4 -Lidocaine (ml) 5 5 -Bleeding Controlled with NA NA Pressure -Treatment Response Procedure Procedure Procedure Tolerated Well Tolerated Well Tolerated Well Pain Scale: 0-10 Numeric Is Patient Pain Free? Yes Yes Laterality: Right - Scapular abscess cavity Type of Debridement: Excisional debridement Anesthesia Used: 4% Lidocaine Solution Depth: Down to and including healthy tissue, in the subcutaneous layer Percentage of wound debrided: 100 Instrument Used: 5mm curette Severity: Fat Layer Exposed Amount of bleeding with debridement: Mild Bleeding Controlled with: Compression and gauze Patient tolerated procedure well Assessment/Plan Active Problems Infected sebaceous cyst of skin (Chronic) Diabetes mellitus (Chronic) Assessment: This is a 72-year-old female with an apparent infected sebaceous cyst in the right scapular area. The cyst appears to have been present for many years prior to the infection, which developed in July 2017. Very little had been rendered in terms of care, but for a brief course of oral antibiotics in July 2017. Because the patient cannot reach the area involved , no local care had been implemented prior to her presentation here. A culture the patient's wound, obtained at her initial visit, was positive for MRSA. The patient was started on doxycycline 100 mg p.o. twice daily for total of 14 days , which continues until the current time. We have implemented the use of Silver Renetta, in anticipation that this would be changed by home health nursing every day or every other day. However, there has been some difficulty in arranging home health nursing care, the patient has been without attention to the wound since her last visit here. Efforts are underway to arrange home health nursing care, but with difficulties. The patient again denies that she has any friends or relatives who can assist her in the management of her wound. The location of the wound precludes the patient from packing by herself. She has been offered the option of returning to the wound center periodically, but has transportation issues. The patient's labs have been reviewed, and are relatively unremarkable. She has a mild anemia with a hemoglobin of 11.1 and hematocrit of 33.7. Platelet count is 214,000. MERLE globin A1c is 9.0. Patient 's potassium is 3.7. Sodium is 139, chloride 104, BUN 13, creatinine 0.9, glucose 202. Plan: Cultures have been obtained, and are positive for MRSA. Patient has been started on doxycycline 100 mg p.o. twice daily for total of 14 days. We are using Silver Renetta to pack the wound. Home health care nursing has been recruited to assist in daily wound care, but difficulties have been encountered , and troubleshooting continues. Optimization of the patient's diabetes mellitus has been recommended. We will continue packing the patient's wound with Silver Renetta. We are to continue to arrange home health nursing care for wound packing changes. Because of the area involved, home health nursing care will be continued, as the patient has no family members or neighbors which can be of assistance. Patient will return in 1 week for reassessment. It is hoped that the site will heal by conservative measures. However, ultimately, definitive excision of the cyst or cyst wall may be required for definitive management once the infection has resolved and healing occurred. Influenza vaccine was not administered today. Patient is not a smoker. Patient weighs 180 pounds. She stands 5 feet 3 inches tall. My is 31.9, which places her in a class I category. Weight loss has been recommended, with collaboration with her primary care physician.
[2018-01-30 13:26] VITALS: BP 126/71; PULSE 105; RESP 18; TEMP 36.2; BMI 31.8
--- NOTE | 2018-01-30 14:30 | PCM.WC.HP ---
(1) Infected sebaceous cyst of skin Status: Chronic Current Visit: Yes Code(s): L72.3 - Sebaceous cyst; L08.9 - Local infection of the skin and subcutaneous tissue, unspecified (2) Obesity (BMI 30.0-34.9) Status: Chronic Current Visit: No Code(s): E66.9 - Obesity, unspecified (3) Hyperlipidemia Status: Chronic Current Visit: No Code(s): E78.5 - Hyperlipidemia, unspecified (4) Diabetes mellitus Status: Chronic Current Visit: Yes Qualifiers: Diabetes mellitus type: type 2 Diabetes mellitus complication status: with skin complications Diabetes mellitus complication detail: with other skin complication Code(s): E11.9 - Type 2 diabetes mellitus without complications (5) Hypertension Status: Chronic Current Visit: No Qualifiers: Hypertension type: essential hypertension Qualified Code(s): I10 - Essential (primary) hypertension Code(s): I10 - Essential (primary) hypertension (6) Colitis Status: Chronic Current Visit: No Code(s): K52.9 - Noninfective gastroenteritis and colitis, unspecified History of Present Illness Date of Service: 01/30/18 Chief Complaint: Chronic, nonhealing infected sebaceous cyst, right scapular area History of Wound: This is a 72-year-old female who presented with an infected sebaceous cyst cavity which has been present since July 2017. On July 07, 2017, patient noted purulent drainage from the cyst in the right scapular area. She indicates that there was a bump at this site prior to the development of an infection. This was presumably a small subcutaneous cyst. The patient presented to her primary care physician, who treated the patient with oral antibiotics for approximately 10 days. No cultures were performed. The patient's primary care physician conveyed his expectation that the site would subsequently heal, but it has not done so since it initially occurred in July 2017. When the patient was asked how she has been treating the site, she indicateed that I cannot even reach it. In other words, no local care had been implemented. The patient lives alone, and has no family members or neighbors who can assist. Upon initial presentation, the patient complained of a cyst that will not go away. The patient is known to be diabetic, and indicates that her hemoglobin A1c runs generally between 7 and 9. Past Medical History Past Medical History: Chronic Problems Infected sebaceous cyst of skin (Chronic) Obesity (BMI 30.0-34.9) (Chronic) Hyperlipidemia (Chronic) Diabetes mellitus (Chronic) Hypertension (Chronic) Colitis (Chronic) Surgical History: - - Patient is undergone thyroidectomy in July 2017. She is undergone bilateral vein stripping procedures. The ganglion has been excised from her right wrist. She is undergone laparoscopy in the past. She has had bilateral cataract surgery. Right thumb trigger finger surgery has been performed in the past. The patient is a Ab0. Allergies/Adverse Reactions: Allergies acetaminophen [From Vicodin] Allergy (Verified 01/09/18 14:02) Itching cat dander Allergy (Verified 01/09/18 14:04) Unknown dog dander Allergy (Verified 01/09/18 14:04) Unknown hydrocodone bitartrate [From Vicodin] Allergy (Verified 01/09/18 14:02) Itching levofloxacin [From Levaquin] Adverse Reaction (Verified 01/09/18 14:40) Rash beer Adverse Reaction (Uncoded 01/09/18 14:04) Unknown wine Adverse Reaction (Uncoded 01/09/18 14:04) Unknown Home Medications: Ambulatory Orders Medication Instructions Recorded Ascorbic Acid [Vitamin C] 1,000 mg PO DAILY@0800 01/11/14 Aspirin [Aspirin, Baby] 81 mg PO DAILY@0800 01/11/14 Atorvastatin Calcium [Lipitor] 20 mg PO QHS 01/11/14 Calcium Carb/Vitamin D 1 tab PO BIDCM 01/11/14 [Caltrate-600 With Vit D Tab] Celecoxib [Celebrex] 200 mg PO DAILY 01/11/14 Glimepiride [Amaryl] 4 mg PO BID 01/11/14 Lisinopril/Hydrochlorothiazide 1 tablet PO DAILY 01/11/14 [Zestoretic 20/25 Tablet] Multivit-Min/FA/Lycopene/Lut 1 each PO DAILY 01/11/14 [Centrum Silver Tablet] Tizanidine HCl [Zanaflex] 2 mg PO BID 01/11/14 traMADol [Ultram (G)] 100 mg PO TID 01/11/14 Esomeprazole Mag Trihydrate mg PO 01/09/18 [Nexium] Guaifenesin/Pseudoephedrne HCl 1 each PO 01/09/18 [Mucinex D ER 1,200-120 mg Tab] Insulin NPH/Reg 70/30 [Novolin 60 units SC QHS 01/09/18 70/30] Levothyroxine [Synthroid] 125 mcg PO DAILY 01/09/18 Montelukast [Singulair] 10 mg PO DAILY 01/09/18 Vit A/Vit C/Vit E/Zinc/Copper 1 each PO BID 01/09/18 [Preservision Areds Softgel] - Family History Paternal - - Patient is uncertain as to her father's medical history. Her mother at age of 52 with a history of alcoholism and hepatic cirrhosis. Lives: Alone Smoking Status: Never smoker Tobacco Use: Non-smoker Alcohol: None Drugs: None Review of Systems Constitutional: Denies: Chills, Fever, Weight Change Eyes: Denies: Pain, Vision Change HEENT: Denies: Difficulty Hearing, Difficulty Swallowing, Sinus Congestion Cardiovascular: Denies: Chest Pain, Palpitations Respiratory: Denies: Cough, Shortness of Breath Gastrointestinal: Denies: Diarrhea, Nausea, Vomiting Genitourinary: Denies: Dysuria, Hematuria Endocrine: Denies: Heat/ Cold Intolerance, Polydipsia, Polyuria Hematologic/ Lymphatic: Denies: Easy Bruising, Easy Bleeding - Physical Exam Vital Signs Temp Pulse Resp BP 97.1 F L 105 H 18 126/71 H 01/30/18 13:26 01/30/18 13:26 01/30/18 13:26 01/30/18 13:26 General: Alert, Oriented x3, Cooperative, No apparent distress, Well developed, Well nourished HEENT: Atraumatic, PERRLA, EOMI, Normocephalic Oral: Moist Mucosa Neck: No JVD Lungs: Normal air movement Abdomen: Non-Distended Extremities: No clubbing, No cyanosis, No edema, No Calf Tenderness Skin: - - The infected sebaceous cyst cavity in the right scapular area is relatively unchanged. Dimensions are documented elsewhere. There is no significant erythema or cellulitis. Wound Measurements and Assessment WC - Nurse 1 - General Ulcer Measurement Start: 01/09/18 13:41 Freq: Status: Active Protocol: Activity Type Activity Date Activity User E-Sign Co-Sign Detail Recorded Client Recorded Date Recorded By Document 01/30/18 13:26 [facility] [id number] 01/30/18 13:33 BMF 01/30/18 13:26 Wound Center Nurse 1 [Ulcer Assessment] #1- RIGHT SCAPULA -Combined with other wound No -Current Size (cm) - Length 0.3 -Current Size (cm) - Width 0.7 -Current Size (cm) - Depth 0.6 -Total Square Cm 0.21 -Photo Taken No -Epithelialization None Present -Tunneling No -Undermining/Tunneling No -Circular Undermining No -Exudate Amt Small (1-33%) -Exudate Type Serosanguineous -Wound Margin Distinct, Outline Attached -Granulation Amt Large (67-100%) -Granulation Quality Red -Slough/Fibrin No -Necrosis Amt None Present (0 %) -Texture (Eve-wound Skin Appearance) Scarring -Moisture (Eve-wound Skin Appearance Assessed ) -Color (Eve-wound Skin Appearance) Assessed -Temperature (Eve-wound Skin No Abnormality Appearance) (Pt Warm) -Tenderness on Palpation (Eve-wound No Skin Appearance) -Ulcer Cleansing Rinsed/ Irrigated with Saline -Foul Odor after Cleansing No -Anesthetic Used 5% Lidocaine Gel WC - Nurse 2 - General Ulcer CM Notes Start: 01/09/18 13:41 Freq: Status: Active Protocol: Activity Type Activity Date Activity User E-Sign Co-Sign Detail Recorded Client Recorded Date Recorded By Document 01/30/18 14:18 [id number] 01/30/18 14:23 01/30/18 14:18 Wound Center Nurse 2 [Procedure/Treatment] -Time 14:18 -Correct Patient Yes -Correct Side, Site, Position Yes -Correct Procedure Yes -Procedure Performed Yes -Type of Procedure Debridement -Clinical Debridement Subcutaneous -Post Debridement Size (cm) - Length 0.3 -Post Debridement Size (cm) - Width 0.7 -Post Debridement Size (cm) - Depth 0.6 -Total Square Cm 0.21 -Wound/Ulcer Outcome Amputation -Ulcer Cleansing Rinsed/ Irrigated with Saline -Foul Odor after Cleansing No -Bioengineered Tissue No -Topical Lidocaine (%) 4 -Lidocaine (ml) 5 -Bleeding Controlled with NA -Treatment Response Procedure Tolerated Well [See Physician Procedure note for Specifics] Pain Scale: 0-10 Numeric [Pain] -Is Patient Pain Free? Yes Musculoskeletal: No Muscle Wasting Neurological: Cranial nerves II-XII grossly intact, Neuro grossly intact Psych/Mental Status: Normal Affect, Appropriate, Alert and oriented to time, place, person, mood and affect Debridement Note Post-Debridement Measurements/Treatment WC - Nurse 2 - General Ulcer CM Notes Start: 01/09/18 13:41 Freq: Status: Active Protocol: Activity Type Activity Date Activity User E-Sign Co-Sign Detail Recorded Client Recorded Date Recorded By Document 01/09/18 14:33 JS [id number] 01/09/18 14:45 JS Document 01/16/18 14:31 JS [id number] 01/16/18 14:34 JS Document 01/23/18 16:38 JF [id number] 01/23/18 16:40 JF Document 01/30/18 14:18 JS [id number] 01/30/18 14:23 JS 01/09/18 01/16/18 01/23/18 14:33 14:31 16:38 Wound Center Nurse 2 #1- RIGHT SCAPULA -Time 14:34 14:31 16:39 -Correct Patient Yes Yes Yes -Correct Side, Site, Position Yes Yes Yes -Correct Procedure Yes Yes Yes -Procedure Performed No No Yes -Type of Procedure Debridement -Clinical Debridement Subcutaneous -Post Debridement Size (cm) - Length 0.2 0.2 0.3 -Post Debridement Size (cm) - Width 0.2 0.5 0.6 -Post Debridement Size (cm) - Depth 0.5 0.7 0.5 -Total Square Cm 0.04 0.10 0.18 -Wound/Ulcer Outcome Not Healed Not Healed -Ulcer Cleansing Rinsed/ Rinsed/ Rinsed/ Irrigated with Irrigated with Irrigated with Saline Saline Saline -Foul Odor after Cleansing No No No -Bioengineered Tissue No No No -Topical Lidocaine (%) 4 4 -Lidocaine (ml) 5 5 -Bleeding Controlled with NA NA Pressure -Treatment Response Procedure Procedure Procedure Tolerated Well Tolerated Well Tolerated Well Pain Scale: 0-10 Numeric Is Patient Pain Free? Yes Yes 01/30/18 14:18 Wound Center Nurse 2 #1- RIGHT SCAPULA -Time 14:18 -Correct Patient Yes -Correct Side, Site, Position Yes -Correct Procedure Yes -Procedure Performed Yes -Type of Procedure Debridement -Clinical Debridement Subcutaneous -Post Debridement Size (cm) - Length 0.3 -Post Debridement Size (cm) - Width 0.7 -Post Debridement Size (cm) - Depth 0.6 -Total Square Cm 0.21 -Wound/Ulcer Outcome Amputation -Ulcer Cleansing Rinsed/ Irrigated with Saline -Foul Odor after Cleansing No -Bioengineered Tissue No -Topical Lidocaine (%) 4 -Lidocaine (ml) 5 -Bleeding Controlled with NA -Treatment Response Procedure Tolerated Well Pain Scale: 0-10 Numeric Is Patient Pain Free? Yes Laterality: Right - Scapular area Type of Debridement: Excisional debridement Anesthesia Used: 4% Lidocaine Solution Depth: Down to and including healthy tissue, in the subcutaneous layer Percentage of wound debrided: 100 Instrument Used: 3mm curette Severity: Fat Layer Exposed Bleeding Controlled with: Compression and gauze Patient tolerated procedure well Assessment/Plan Active Problems Infected sebaceous cyst of skin (Chronic) Diabetes mellitus (Chronic) Assessment: This is a 72-year-old female with an apparent infected sebaceous cyst in the right scapular area. The cyst appears to have been present for many years prior to the infection, which developed in July 2017. Very little had been rendered in terms of care, but for a brief course of oral antibiotics in July 2017. Because the patient cannot reach the area involved, no local care had been implemented prior to her presentation here. A culture the patient's wound, obtained at her initial visit, was positive for MRSA. The patient was started on doxycycline 100 mg p.o. twice daily for total of 14 days, which continues until the current time. We have implemented the use of Silver Renetta, in anticipation that this would be changed by home health nursing every day or every other day. However, there has been some difficulty in arranging home health nursing care, and the patient has been without attention to the wound since her last visit here. In other words, the Silver Renetta placed last week has remained in place until the current time, without changing of the Silver Renetta every other day as had been anticipated. Efforts are underway to arrange home health nursing care, but with difficulties. The patient again denies that she has any friends or relatives who can assist her in the management of her wound. The location of the wound precludes the patient from packing by herself. She has been offered the option of returning to the wound center periodically, but has transportation issues. The patient's labs have been reviewed, and are relatively unremarkable. She has a mild anemia with a hemoglobin of 11.1 and hematocrit of 33.7. Platelet count is 214,000. MERLE globin A1c is 9.0. Patient's potassium is 3.7. Sodium is 139, chloride 104, BUN 13, creatinine 0.9, glucose 202. Plan: Cultures have been obtained, and were positive for MRSA. Patient has completed doxycycline 100 mg p.o. twice daily for total of 14 days. We are using Silver Renetta to pack the wound. Home health care nursing has been recruited to assist in daily wound care, but difficulties have been encountered, and troubleshooting continues. The patient is unable to return [facility] for wound packing changes. Claims to have no friends or family members who can assist in wound management. We are to seek services closer to the patient's home in [place], including [facility] or surgeons in [facility]. Optimization of the patient's diabetes mellitus has been recommended. We will continue packing the patient's wound with Silver Renetta. We are to continue to seek an appropriate arrangement for serial wound packing changes between clinic visits. Patient will return in 1 week for reassessment. It is hoped that the site will heal by conservative measures. However, ultimately, definitive excision of the cyst or cyst wall may be required for definitive management once the infection has resolved and healing occurred. Influenza vaccine was not administered today. Patient is not a smoker. Patient weighs 180 pounds. She stands 5 feet 3 inches tall. My is 31.9, which places her in a class I category. Weight loss has been recommended, with collaboration with her primary care physician.
--- NOTE | 2018-01-30 14:38 | HP.PCM_ITS ---
(1) Infected sebaceous cyst of skin Status: Chronic Current Visit: Yes Code(s): L72.3 - Sebaceous cyst; L08.9 - Local infection of the skin and subcutaneous tissue, unspecified (2) Obesity (BMI 30.0-34.9) Status: Chronic Current Visit: No Code(s): E66.9 - Obesity, unspecified (3) Hyperlipidemia Status: Chronic Current Visit: No Code(s): E78.5 - Hyperlipidemia, unspecified (4) Diabetes mellitus Status: Chronic Current Visit: Yes Qualifiers: Diabetes mellitus type: type 2 Diabetes mellitus complication status: with skin complications Diabetes mellitus complication detail: with other skin complication Code(s): E11.9 - Type 2 diabetes mellitus without complications (5) Hypertension Status: Chronic Current Visit: No Qualifiers: Hypertension type: essential hypertension Qualified Code(s): I10 - Essential (primary) hypertension Code(s): I10 - Essential (primary) hypertension (6) Colitis Status: Chronic Current Visit: No Code(s): K52.9 - Noninfective gastroenteritis and colitis, unspecified History of Present Illness Date of Service: 01/30/18 Chief Complaint: Chronic, nonhealing infected sebaceous cyst, right scapular area History of Wound: This is a 72-year-old female who presented with an infected sebaceous cyst cavity which has been present since July 2017. On July 07, 2017, patient noted purulent drainage from the cyst in the right scapular area. She indicates that there was a bump at this site prior to the development of an infection. This was presumably a small subcutaneous cyst. The patient presented to her primary care physician, who treated the patient with oral antibiotics for approximately 10 days. No cultures were performed. The patient' s primary care physician conveyed his expectation that the site would subsequently heal, but it has not done so since it initially occurred in July 2017. When the patient was asked how she has been treating the site, she indicateed that I cannot even reach it. In other words, no local care had been implemented. The patient lives alone, and has no family members or neighbors who can assist. Upon initial presentation, the patient complained of a cyst that will not go away. The patient is known to be diabetic, and indicates that her hemoglobin A1c runs generally between 7 and 9. Past Medical History Past Medical History: Chronic Problems Infected sebaceous cyst of skin (Chronic) Obesity (BMI 30.0-34.9) (Chronic) Hyperlipidemia (Chronic) Diabetes mellitus (Chronic) Hypertension (Chronic) Colitis (Chronic) Surgical History: - - Patient is undergone thyroidectomy in July 2017. She is undergone bilateral vein stripping procedures. The ganglion has been excised from her right wrist. She is undergone laparoscopy in the past. She has had bilateral cataract surgery. Right thumb trigger finger surgery has been performed in the past. The patient is a Ab0. Allergies/Adverse Reactions: Allergies acetaminophen [From Vicodin] Allergy (Verified 01/09/18 14:02) Itching cat dander Allergy (Verified 01/09/18 14:04) Unknown dog dander Allergy (Verified 01/09/18 14:04) Unknown hydrocodone bitartrate [From Vicodin] Allergy (Verified 01/09/18 14:02) Itching levofloxacin [From Levaquin] Adverse Reaction (Verified 01/09/18 14:40) Rash beer Adverse Reaction (Uncoded 01/09/18 14:04) Unknown wine Adverse Reaction (Uncoded 01/09/18 14:04) Unknown Home Medications: Ambulatory Orders Medication Instructions Recorded Ascorbic Acid [Vitamin C] 1,000 mg PO DAILY@0800 01/11/14 Aspirin [Aspirin, Baby] 81 mg PO DAILY@0800 01/11/14 Atorvastatin Calcium [Lipitor] 20 mg PO QHS 01/11/14 Calcium Carb/Vitamin D 1 tab PO BIDCM 01/11/14 [Caltrate-600 With Vit D Tab] Celecoxib [Celebrex] 200 mg PO DAILY 01/11/14 Glimepiride [Amaryl] 4 mg PO BID 01/11/14 Lisinopril/Hydrochlorothiazide 1 tablet PO DAILY 01/11/14 [Zestoretic 20/25 Tablet] Multivit-Min/FA/Lycopene/Lut 1 each PO DAILY 01/11/14 [Centrum Silver Tablet] Tizanidine HCl [Zanaflex] 2 mg PO BID 01/11/14 traMADol [Ultram (G)] 100 mg PO TID 01/11/14 Esomeprazole Mag Trihydrate mg PO 01/09/18 [Nexium] Guaifenesin/Pseudoephedrne HCl 1 each PO 01/09/18 [Mucinex D ER 1,200-120 mg Tab] Insulin NPH/Reg 70/30 [Novolin 60 units SC QHS 01/09/18 70/30] Levothyroxine [Synthroid] 125 mcg PO DAILY 01/09/18 Montelukast [Singulair] 10 mg PO DAILY 01/09/18 Vit A/Vit C/Vit E/Zinc/Copper 1 each PO BID 01/09/18 [Preservision Areds Softgel] - Family History Paternal - - Patient is uncertain as to her father's medical history. Her mother at age of 52 with a history of alcoholism and hepatic cirrhosis. Lives: Alone Smoking Status: Never smoker Tobacco Use: Non-smoker Alcohol: None Drugs: None Review of Systems Constitutional: Denies: Chills, Fever, Weight Change Eyes: Denies: Pain, Vision Change HEENT: Denies: Difficulty Hearing, Difficulty Swallowing, Sinus Congestion Cardiovascular: Denies: Chest Pain, Palpitations Respiratory: Denies: Cough, Shortness of Breath Gastrointestinal: Denies: Diarrhea, Nausea, Vomiting Genitourinary: Denies: Dysuria, Hematuria Endocrine: Denies: Heat/ Cold Intolerance, Polydipsia, Polyuria Hematologic/ Lymphatic: Denies: Easy Bruising, Easy Bleeding - Physical Exam Vital Signs Temp Pulse Resp BP 97.1 F L 105 H 18 126/71 H 01/30/18 13:26 01/30/18 13:26 01/30/18 13:26 01/30/18 13:26 General: Alert, Oriented x3, Cooperative, No apparent distress, Well developed, Well nourished HEENT: Atraumatic, PERRLA, EOMI, Normocephalic Oral: Moist Mucosa Neck: No JVD Lungs: Normal air movement Abdomen: Non-Distended Extremities: No clubbing, No cyanosis, No edema, No Calf Tenderness Skin: - - The infected sebaceous cyst cavity in the right scapular area is relatively unchanged. Dimensions are documented elsewhere. There is no significant erythema or cellulitis. Wound Measurements and Assessment WC - Nurse 1 - General Ulcer Measurement Start: 01/09/18 13:41 Freq: Status: Active Protocol: Activity Type Activity Date Activity User E-Sign Co-Sign Detail Recorded Client Recorded Date Recorded By Document 01/30/18 13:26 [facility] [id number] 01/30/18 13:33 BMF 01/30/18 13:26 Wound Center Nurse 1 [Ulcer Assessment] #1- RIGHT SCAPULA -Combined with other wound No -Current Size (cm) - Length 0.3 -Current Size (cm) - Width 0.7 -Current Size (cm) - Depth 0.6 -Total Square Cm 0.21 -Photo Taken No -Epithelialization None Present -Tunneling No -Undermining/Tunneling No -Circular Undermining No -Exudate Amt Small (1-33%) -Exudate Type Serosanguineous -Wound Margin Distinct, Outline Attached -Granulation Amt Large (67-100%) -Granulation Quality Red -Slough/Fibrin No -Necrosis Amt None Present (0 %) -Texture (Eve-wound Skin Appearance) Scarring -Moisture (Eve-wound Skin Appearance Assessed ) -Color (Eve-wound Skin Appearance) Assessed -Temperature (Eve-wound Skin No Abnormality Appearance) (Pt Warm) -Tenderness on Palpation (Eve-wound No Skin Appearance) -Ulcer Cleansing Rinsed/ Irrigated with Saline -Foul Odor after Cleansing No -Anesthetic Used 5% Lidocaine Gel WC - Nurse 2 - General Ulcer CM Notes Start: 01/09/18 13:41 Freq: Status: Active Protocol: Activity Type Activity Date Activity User E-Sign Co-Sign Detail Recorded Client Recorded Date Recorded By Document 01/30/18 14:18 [id number] 01/30/18 14:23 01/30/18 14:18 Wound Center Nurse 2 [Procedure/Treatment] -Time 14:18 -Correct Patient Yes -Correct Side, Site, Position Yes -Correct Procedure Yes -Procedure Performed Yes -Type of Procedure Debridement -Clinical Debridement Subcutaneous -Post Debridement Size (cm) - Length 0.3 -Post Debridement Size (cm) - Width 0.7 -Post Debridement Size (cm) - Depth 0.6 -Total Square Cm 0.21 -Wound/Ulcer Outcome Amputation -Ulcer Cleansing Rinsed/ Irrigated with Saline -Foul Odor after Cleansing No -Bioengineered Tissue No -Topical Lidocaine (%) 4 -Lidocaine (ml) 5 -Bleeding Controlled with NA -Treatment Response Procedure Tolerated Well [See Physician Procedure note for Specifics] Pain Scale: 0-10 Numeric [Pain] -Is Patient Pain Free? Yes Musculoskeletal: No Muscle Wasting Neurological: Cranial nerves II-XII grossly intact, Neuro grossly intact Psych/Mental Status: Normal Affect, Appropriate, Alert and oriented to time, place, person, mood and affect Debridement Note Post-Debridement Measurements/Treatment WC - Nurse 2 - General Ulcer CM Notes Start: 01/09/18 13:41 Freq: Status: Active Protocol: Activity Type Activity Date Activity User E-Sign Co-Sign Detail Recorded Client Recorded Date Recorded By Document 01/09/18 14:33 JS [id number] 01/09/18 14:45 JS Document 01/16/18 14:31 JS [id number] 01/16/18 14:34 JS Document 01/23/18 16:38 JF [id number] 01/23/18 16:40 JF Document 01/30/18 14:18 JS [id number] 01/30/18 14:23 JS 01/09/18 01/16/18 01/23/18 14:33 14:31 16:38 Wound Center Nurse 2 #1- RIGHT SCAPULA -Time 14:34 14:31 16:39 -Correct Patient Yes Yes Yes -Correct Side, Site, Position Yes Yes Yes -Correct Procedure Yes Yes Yes -Procedure Performed No No Yes -Type of Procedure Debridement -Clinical Debridement Subcutaneous -Post Debridement Size (cm) - Length 0.2 0.2 0.3 -Post Debridement Size (cm) - Width 0.2 0.5 0.6 -Post Debridement Size (cm) - Depth 0.5 0.7 0.5 -Total Square Cm 0.04 0.10 0.18 -Wound/Ulcer Outcome Not Healed Not Healed -Ulcer Cleansing Rinsed/ Rinsed/ Rinsed/ Irrigated with Irrigated with Irrigated with Saline Saline Saline -Foul Odor after Cleansing No No No -Bioengineered Tissue No No No -Topical Lidocaine (%) 4 4 -Lidocaine (ml) 5 5 -Bleeding Controlled with NA NA Pressure -Treatment Response Procedure Procedure Procedure Tolerated Well Tolerated Well Tolerated Well Pain Scale: 0-10 Numeric Is Patient Pain Free? Yes Yes 01/30/18 14:18 Wound Center Nurse 2 #1- RIGHT SCAPULA -Time 14:18 -Correct Patient Yes -Correct Side, Site, Position Yes -Correct Procedure Yes -Procedure Performed Yes -Type of Procedure Debridement -Clinical Debridement Subcutaneous -Post Debridement Size (cm) - Length 0.3 -Post Debridement Size (cm) - Width 0.7 -Post Debridement Size (cm) - Depth 0.6 -Total Square Cm 0.21 -Wound/Ulcer Outcome Amputation -Ulcer Cleansing Rinsed/ Irrigated with Saline -Foul Odor after Cleansing No -Bioengineered Tissue No -Topical Lidocaine (%) 4 -Lidocaine (ml) 5 -Bleeding Controlled with NA -Treatment Response Procedure Tolerated Well Pain Scale: 0-10 Numeric Is Patient Pain Free? Yes Laterality: Right - Scapular area Type of Debridement: Excisional debridement Anesthesia Used: 4% Lidocaine Solution Depth: Down to and including healthy tissue, in the subcutaneous layer Percentage of wound debrided: 100 Instrument Used: 3mm curette Severity: Fat Layer Exposed Bleeding Controlled with: Compression and gauze Patient tolerated procedure well Assessment/Plan Active Problems Infected sebaceous cyst of skin (Chronic) Diabetes mellitus (Chronic) Assessment: This is a 72-year-old female with an apparent infected sebaceous cyst in the right scapular area. The cyst appears to have been present for many years prior to the infection, which developed in July 2017. Very little had been rendered in terms of care, but for a brief course of oral antibiotics in July 2017. Because the patient cannot reach the area involved , no local care had been implemented prior to her presentation here. A culture the patient's wound, obtained at her initial visit, was positive for MRSA. The patient was started on doxycycline 100 mg p.o. twice daily for total of 14 days , which continues until the current time. We have implemented the use of Silver Renetta, in anticipation that this would be changed by home health nursing every day or every other day. However, there has been some difficulty in arranging home health nursing care, and the patient has been without attention to the wound since her last visit here. In other words, the Silver Renetta placed last week has remained in place until the current time, without changing of the Silver Renetta every other day as had been anticipated. Efforts are underway to arrange home health nursing care, but with difficulties. The patient again denies that she has any friends or relatives who can assist her in the management of her wound. The location of the wound precludes the patient from packing by herself. She has been offered the option of returning to the wound center periodically, but has transportation issues. The patient's labs have been reviewed, and are relatively unremarkable. She has a mild anemia with a hemoglobin of 11.1 and hematocrit of 33.7. Platelet count is 214,000. MERLE globin A1c is 9.0. Patient's potassium is 3.7. Sodium is 139, chloride 104, BUN 13, creatinine 0.9, glucose 202. Plan: Cultures have been obtained, and were positive for MRSA. Patient has completed doxycycline 100 mg p.o. twice daily for total of 14 days. We are using Silver Renetta to pack the wound. Home health care nursing has been recruited to assist in daily wound care, but difficulties have been encountered , and troubleshooting continues. The patient is unable to return [facility] for wound packing changes. Claims to have no friends or family members who can assist in wound management. We are to seek services closer to the patient's home in [place], including [facility] or surgeons in [facility]. Optimization of the patient's diabetes mellitus has been recommended. We will continue packing the patient's wound with Silver Renetta. We are to continue to seek an appropriate arrangement for serial wound packing changes between clinic visits. Patient will return in 1 week for reassessment. It is hoped that the site will heal by conservative measures. However, ultimately, definitive excision of the cyst or cyst wall may be required for definitive management once the infection has resolved and healing occurred. Influenza vaccine was not administered today. Patient is not a smoker. Patient weighs 180 pounds. She stands 5 feet 3 inches tall. My is 31.9, which places her in a class I category. Weight loss has been recommended, with collaboration with her primary care physician.
== END 2018-01-30 23:59 ==
LOC: WC 13:30
PROVIDERS: Visit Provider Surgery
DX: L72.3 Sebaceous cyst (principal); E66.9 Obesity, unspecified; Z68.31 Body mass index [BMI] 31.0-31.9, adult; Z71.3 Dietary counseling and surveillance; E78.5 Hyperlipidemia, unspecified; I10 Essential (primary) hypertension; L08.9 Local infection of the skin and subcutaneous tissue, unspecified; B95.62 Methicillin resistant Staphylococcus aureus infection as the cause of diseases classified elsewhere; D64.9 Anemia, unspecified; L98.492 Non-pressure chronic ulcer of skin of other sites with fat layer exposed; E11.628 Type 2 diabetes mellitus with other skin complications
CPT/HCPCS: 11042; 87070; 87075; 87077; 87186; 87205; 99211; 99212; 99213; G0463

== ENCOUNTER 2018-02-20 12:30 | Outpatient (RCR) | payer MEDICARE, SELFPAY ==
[2018-01-31 01:07] VITALS: PULSE 105; RESP 18; TEMP 36.2
--- NOTE | 2018-02-03 10:55 | WC ---
Tuesday02/02/18: Call made to Dr. Prajapati's office regarding dressing changes for Tuesday & Tuesday's. Mrs. Schwarz does not have a PCP. Dr. Prajapati seen her only while she was a patient in [facility].
[2018-02-06 12:50] VITALS: BP 149/78; PULSE 79; RESP 18; TEMP 36.5
--- NOTE | 2018-02-06 13:21 | PCM.WC.HP ---
(1) Infected sebaceous cyst of skin Status: Acute Current Visit: Yes Code(s): L72.3 - Sebaceous cyst; L08.9 - Local infection of the skin and subcutaneous tissue, unspecified (2) Obesity (BMI 30.0-34.9) Status: Chronic Current Visit: No Code(s): E66.9 - Obesity, unspecified (3) Hyperlipidemia Status: Chronic Current Visit: No Code(s): E78.5 - Hyperlipidemia, unspecified (4) Diabetes mellitus Status: Chronic Current Visit: No Code(s): E11.9 - Type 2 diabetes mellitus without complications (5) Hypertension Status: Chronic Current Visit: No Qualifiers: Code(s): I10 - Essential (primary) hypertension (6) Colitis Status: Chronic Current Visit: No Code(s): K52.9 - Noninfective gastroenteritis and colitis, unspecified History of Present Illness Date of Service: 02/06/18 Chief Complaint: Chronic, nonhealing infected sebaceous cyst, right scapular area History of Wound: This is a 72-year-old female who presented with an infected sebaceous cyst cavity which has been present since July 2017. On July 07, 2017, patient noted purulent drainage from the cyst in the right scapular area. She indicates that there was a bump at this site prior to the development of an infection. This was presumably a small subcutaneous cyst. The patient presented to her primary care physician, who treated the patient with oral antibiotics for approximately 10 days. No cultures were performed. The patient's primary care physician conveyed his expectation that the site would subsequently heal, but it has not done so since it initially occurred in July 2017. When the patient was asked how she has been treating the site, she indicateed that I cannot even reach it. In other words, no local care had been implemented. The patient lives alone, and has no family members or neighbors who can assist. Upon initial presentation, the patient complained of a cyst that will not go away. The patient is known to be diabetic, and indicates that her hemoglobin A1c runs generally between 7 and 9. Past Medical History Past Medical History: Chronic Problems Obesity (BMI 30.0-34.9) (Chronic) Hyperlipidemia (Chronic) Diabetes mellitus (Chronic) Hypertension (Chronic) Colitis (Chronic) Surgical History: - - Patient is undergone thyroidectomy in July 2017. She is undergone bilateral vein stripping procedures. The ganglion has been excised from her right wrist. She is undergone laparoscopy in the past. She has had bilateral cataract surgery. Right thumb trigger finger surgery has been performed in the past. The patient is a Ab0. Allergies/Adverse Reactions: Allergies acetaminophen [From Vicodin] Allergy (Verified 01/09/18 14:02) Itching cat dander Allergy (Verified 01/09/18 14:04) Unknown dog dander Allergy (Verified 01/09/18 14:04) Unknown hydrocodone bitartrate [From Vicodin] Allergy (Verified 01/09/18 14:02) Itching levofloxacin [From Levaquin] Adverse Reaction (Verified 01/09/18 14:40) Rash beer Adverse Reaction (Uncoded 01/09/18 14:04) Unknown wine Adverse Reaction (Uncoded 01/09/18 14:04) Unknown Home Medications: Ambulatory Orders Medication Instructions Recorded Ascorbic Acid [Vitamin C] 1,000 mg PO DAILY@0800 01/11/14 Aspirin [Aspirin, Baby] 81 mg PO DAILY@0800 01/11/14 Atorvastatin Calcium [Lipitor] 20 mg PO QHS 01/11/14 Calcium Carb/Vitamin D 1 tab PO BIDCM 01/11/14 [Caltrate-600 With Vit D Tab] Celecoxib [Celebrex] 200 mg PO DAILY 01/11/14 Glimepiride [Amaryl] 4 mg PO BID 01/11/14 Lisinopril/Hydrochlorothiazide 1 tablet PO DAILY 01/11/14 [Zestoretic 20/25 Tablet] Multivit-Min/FA/Lycopene/Lut 1 each PO DAILY 01/11/14 [Centrum Silver Tablet] Tizanidine HCl [Zanaflex] 2 mg PO BID 01/11/14 traMADol [Ultram (G)] 100 mg PO TID 01/11/14 Esomeprazole Mag Trihydrate mg PO 01/09/18 [Nexium] Guaifenesin/Pseudoephedrne HCl 1 each PO 01/09/18 [Mucinex D ER 1,200-120 mg Tab] Insulin NPH/Reg 70/30 [Novolin 60 units SC QHS 01/09/18 70/30] Levothyroxine [Synthroid] 125 mcg PO DAILY 01/09/18 Montelukast [Singulair] 10 mg PO DAILY 01/09/18 Vit A/Vit C/Vit E/Zinc/Copper 1 each PO BID 01/09/18 [Preservision Areds Softgel] - Family History Paternal - - Patient is uncertain as to her father's medical history. Her mother at age of 52 with a history of alcoholism and hepatic cirrhosis. Smoking Status: Never smoker Tobacco Use: Non-smoker Review of Systems Constitutional: Denies: Chills, Fever, Weight Change Eyes: Denies: Pain, Vision Change HEENT: Denies: Difficulty Hearing, Difficulty Swallowing, Sinus Congestion Cardiovascular: Denies: Chest Pain, Palpitations Respiratory: Denies: Cough, Shortness of Breath Gastrointestinal: Denies: Diarrhea, Nausea, Vomiting Genitourinary: Denies: Dysuria, Hematuria Endocrine: Denies: Heat/ Cold Intolerance, Polydipsia, Polyuria Hematologic/ Lymphatic: Denies: Easy Bruising, Easy Bleeding - Physical Exam Vital Signs Temp Pulse Resp BP 97.7 F L 79 18 149/78 H 02/06/18 12:50 02/06/18 12:50 02/06/18 12:50 02/06/18 12:50 General: Alert, Oriented x3, Cooperative, No apparent distress, Well developed, Well nourished HEENT: Atraumatic, PERRLA, EOMI, Normocephalic Oral: Moist Mucosa Neck: No JVD Lungs: Normal air movement Abdomen: Non-Distended Extremities: No clubbing, No cyanosis, No edema, No Calf Tenderness Skin: - - The abscess cavity on the patient's right scapular area it is smaller in size. Dimensions are documented elsewhere. The cavity appears to be filling in by secondary intention. There is no sign of infection or cellulitis at this time. There is no significant surrounding erythema. Wound Measurements and Assessment WC - Nurse 1 - General Ulcer Measurement Start: 02/06/18 12:50 Freq: Status: Active Protocol: Activity Type Activity Date Activity User E-Sign Co-Sign Detail Recorded Client Recorded Date Recorded By Document 02/06/18 12:50 [facility] [id number] 02/06/18 13:00 [facility] 02/06/18 12:50 Wound Center Nurse 1 [Ulcer Assessment] #1- RIGHT SCAPULA -Combined with other wound No -Current Size (cm) - Length 0.2 -Current Size (cm) - Width 0.4 -Current Size (cm) - Depth 0.3 -Total Square Cm 0.08 -Date of Last Picture (Recall this 02/06/18 field) -Photo Taken Yes -Epithelialization None Present -Tunneling No -Undermining/Tunneling No -Circular Undermining No -Exudate Amt Small (1-33%) -Exudate Type Purulent -Wound Margin Distinct, Outline Attached -Granulation Amt Large (67-100%) -Granulation Quality Red -Slough/Fibrin No -Necrosis Amt None Present (0 %) -Texture (Eve-wound Skin Appearance) Scarring -Moisture (Eve-wound Skin Appearance Assessed ) -Color (Eve-wound Skin Appearance) Assessed -Temperature (Eve-wound Skin No Abnormality Appearance) (Pt Warm) -Tenderness on Palpation (Eve-wound No Skin Appearance) -Ulcer Cleansing Rinsed/ Irrigated with Saline -Foul Odor after Cleansing No -Anesthetic Used 4% Lidocaine Solution WC - Nurse 2 - General Ulcer CM Notes Start: 02/06/18 12:50 Freq: Status: Active Protocol: Activity Type Activity Date Activity User E-Sign Co-Sign Detail Recorded Client Recorded Date Recorded By Document 02/06/18 13:06 [email or web address] [id number] 02/06/18 13:10 [facility] 02/06/18 13:06 Wound Center Nurse 2 [Procedure/Treatment] -Time 13:06 -Correct Patient Yes -Correct Side, Site, Position Yes -Correct Procedure Yes -Procedure Performed Yes -Type of Procedure Debridement -Clinical Debridement Subcutaneous -Post Debridement Size (cm) - Length 0.3 -Post Debridement Size (cm) - Width 0.5 -Post Debridement Size (cm) - Depth 0.3 -Total Square Cm 0.15 -Wound/Ulcer Outcome Not Healed -Ulcer Cleansing Rinsed/ Irrigated with Saline -Foul Odor after Cleansing No -Bioengineered Tissue No -Topical Lidocaine (%) 4 -Lidocaine (ml) 5 -Bleeding Controlled with NA -Treatment Response Procedure Tolerated Well [See Physician Procedure note for Specifics] Pain Scale: 0-10 Numeric [Pain] -Is Patient Pain Free? Yes Neurological: Cranial nerves II-XII grossly intact, Neuro grossly intact Psych/Mental Status: Normal Affect, Appropriate, Alert and oriented to time, place, person, mood and affect Debridement Note Post-Debridement Measurements/Treatment WC - Nurse 2 - General Ulcer CM Notes Start: 02/06/18 12:50 Freq: Status: Active Protocol: Activity Type Activity Date Activity User E-Sign Co-Sign Detail Recorded Client Recorded Date Recorded By Document 02/06/18 13:06 [email or web address] [id number] 02/06/18 13:10 [facility] 02/06/18 13:06 Wound Center Nurse 2 #1- RIGHT SCAPULA -Time 13:06 -Correct Patient Yes -Correct Side, Site, Position Yes -Correct Procedure Yes -Procedure Performed Yes -Type of Procedure Debridement -Clinical Debridement Subcutaneous -Post Debridement Size (cm) - Length 0.3 -Post Debridement Size (cm) - Width 0.5 -Post Debridement Size (cm) - Depth 0.3 -Total Square Cm 0.15 -Wound/Ulcer Outcome Not Healed -Ulcer Cleansing Rinsed/ Irrigated with Saline -Foul Odor after Cleansing No -Bioengineered Tissue No -Topical Lidocaine (%) 4 -Lidocaine (ml) 5 -Bleeding Controlled with NA -Treatment Response Procedure Tolerated Well Pain Scale: 0-10 Numeric Is Patient Pain Free? Yes Laterality: Right - Scapular area Type of Debridement: Excisional debridement Anesthesia Used: 4% Lidocaine Solution Depth: Down to and including healthy tissue, in the subcutaneous layer Percentage of wound debrided: 100 Instrument Used: 3mm curette Severity: Fat Layer Exposed Amount of bleeding with debridement: Mild Bleeding Controlled with: Compression and gauze Patient tolerated procedure well Assessment/Plan Active Problems Infected sebaceous cyst of skin (Acute) Assessment: This is a 72-year-old female with an apparent infected sebaceous cyst in the right scapular area. The cyst appears to have been present for many years prior to the infection, which developed in July 2017. Very little had been rendered in terms of care, but for a brief course of oral antibiotics in July 2017. Because the patient cannot reach the area involved, no local care had been implemented prior to her presentation here. A culture the patient's wound, obtained at her initial visit, was positive for MRSA. The patient was started on doxycycline 100 mg p.o. twice daily for total of 14 days, which is now completed. We have implemented the use of Silver Renetta, in anticipation that this would be changed by home health nursing every day or every other day. However, there has been some difficulty in arranging home health nursing care, and the patient has been without attention to the wound since her last visit here. In other words, the Silver Renetta placed last week has not been changed every day or every other day as had been anticipated. Efforts are underway to arrange home health nursing care, but with difficulties. Efforts have also been made to find the patient a primary care provider closer to her home in the [facility]. The patient again denies that she has any friends or relatives who can assist her in the management of her wound. The location of the wound precludes the patient from packing by herself. She has been offered the option of returning to the wound center periodically, but has transportation issues. She has now agreed to return to the wound center twice weekly for wound packing changes. The patient's labs have been reviewed, and are relatively unremarkable. She has a mild anemia with a hemoglobin of 11.1 and hematocrit of 33.7. Platelet count is 214,000. MERLE globin A1c is 9.0. Patient's potassium is 3.7. Sodium is 139, chloride 104, BUN 13, creatinine 0.9, glucose 202. Plan: Cultures have been obtained, and were positive for MRSA. Patient has completed doxycycline 100 mg p.o. twice daily for total of 14 days. We are using Silver Renetta to pack the wound. Home health care nursing has been recruited to assist in daily wound care, but difficulties have been encountered, and troubleshooting continues. The patient is unable to return to [facility] frequently for wound packing changes. She claims to have no friends or family members who can assist in wound management. We are to seek services closer to the patient's home in [place], including [facility] or physicians in [facility]. Optimization of the patient's diabetes mellitus has been recommended. We will continue packing the patient's wound with Silver Renetta. We are to continue to seek an appropriate arrangement for serial wound packing changes between clinic visits. Patient will return in 1 week for reassessment. It is hoped that the site will heal by conservative measures. However, ultimately, definitive excision of the cyst or cyst wall may be required for definitive management once the infection has resolved and healing occurred. Influenza vaccine was not administered today. Patient is not a smoker. Patient weighs 180 pounds. She stands 5 feet 3 inches tall. My is 31.9, which places her in a class I category. Weight loss has been recommended, with collaboration with her primary care physician.
--- NOTE | 2018-02-06 13:32 | HP.PCM_ITS ---
(1) Infected sebaceous cyst of skin Status: Acute Current Visit: Yes Code(s): L72.3 - Sebaceous cyst; L08.9 - Local infection of the skin and subcutaneous tissue, unspecified (2) Obesity (BMI 30.0-34.9) Status: Chronic Current Visit: No Code(s): E66.9 - Obesity, unspecified (3) Hyperlipidemia Status: Chronic Current Visit: No Code(s): E78.5 - Hyperlipidemia, unspecified (4) Diabetes mellitus Status: Chronic Current Visit: No Code(s): E11.9 - Type 2 diabetes mellitus without complications (5) Hypertension Status: Chronic Current Visit: No Qualifiers: Code(s): I10 - Essential (primary) hypertension (6) Colitis Status: Chronic Current Visit: No Code(s): K52.9 - Noninfective gastroenteritis and colitis, unspecified History of Present Illness Date of Service: 02/06/18 Chief Complaint: Chronic, nonhealing infected sebaceous cyst, right scapular area History of Wound: This is a 72-year-old female who presented with an infected sebaceous cyst cavity which has been present since July 2017. On July 07, 2017, patient noted purulent drainage from the cyst in the right scapular area. She indicates that there was a bump at this site prior to the development of an infection. This was presumably a small subcutaneous cyst. The patient presented to her primary care physician, who treated the patient with oral antibiotics for approximately 10 days. No cultures were performed. The patient' s primary care physician conveyed his expectation that the site would subsequently heal, but it has not done so since it initially occurred in July 2017. When the patient was asked how she has been treating the site, she indicateed that I cannot even reach it. In other words, no local care had been implemented. The patient lives alone, and has no family members or neighbors who can assist. Upon initial presentation, the patient complained of a cyst that will not go away. The patient is known to be diabetic, and indicates that her hemoglobin A1c runs generally between 7 and 9. Past Medical History Past Medical History: Chronic Problems Obesity (BMI 30.0-34.9) (Chronic) Hyperlipidemia (Chronic) Diabetes mellitus (Chronic) Hypertension (Chronic) Colitis (Chronic) Surgical History: - - Patient is undergone thyroidectomy in July 2017. She is undergone bilateral vein stripping procedures. The ganglion has been excised from her right wrist. She is undergone laparoscopy in the past. She has had bilateral cataract surgery. Right thumb trigger finger surgery has been performed in the past. The patient is a Ab0. Allergies/Adverse Reactions: Allergies acetaminophen [From Vicodin] Allergy (Verified 01/09/18 14:02) Itching cat dander Allergy (Verified 01/09/18 14:04) Unknown dog dander Allergy (Verified 01/09/18 14:04) Unknown hydrocodone bitartrate [From Vicodin] Allergy (Verified 01/09/18 14:02) Itching levofloxacin [From Levaquin] Adverse Reaction (Verified 01/09/18 14:40) Rash beer Adverse Reaction (Uncoded 01/09/18 14:04) Unknown wine Adverse Reaction (Uncoded 01/09/18 14:04) Unknown Home Medications: Ambulatory Orders Medication Instructions Recorded Ascorbic Acid [Vitamin C] 1,000 mg PO DAILY@0800 01/11/14 Aspirin [Aspirin, Baby] 81 mg PO DAILY@0800 01/11/14 Atorvastatin Calcium [Lipitor] 20 mg PO QHS 01/11/14 Calcium Carb/Vitamin D 1 tab PO BIDCM 01/11/14 [Caltrate-600 With Vit D Tab] Celecoxib [Celebrex] 200 mg PO DAILY 01/11/14 Glimepiride [Amaryl] 4 mg PO BID 01/11/14 Lisinopril/Hydrochlorothiazide 1 tablet PO DAILY 01/11/14 [Zestoretic 20/25 Tablet] Multivit-Min/FA/Lycopene/Lut 1 each PO DAILY 01/11/14 [Centrum Silver Tablet] Tizanidine HCl [Zanaflex] 2 mg PO BID 01/11/14 traMADol [Ultram (G)] 100 mg PO TID 01/11/14 Esomeprazole Mag Trihydrate mg PO 01/09/18 [Nexium] Guaifenesin/Pseudoephedrne HCl 1 each PO 01/09/18 [Mucinex D ER 1,200-120 mg Tab] Insulin NPH/Reg 70/30 [Novolin 60 units SC QHS 01/09/18 70/30] Levothyroxine [Synthroid] 125 mcg PO DAILY 01/09/18 Montelukast [Singulair] 10 mg PO DAILY 01/09/18 Vit A/Vit C/Vit E/Zinc/Copper 1 each PO BID 01/09/18 [Preservision Areds Softgel] - Family History Paternal - - Patient is uncertain as to her father's medical history. Her mother at age of 52 with a history of alcoholism and hepatic cirrhosis. Smoking Status: Never smoker Tobacco Use: Non-smoker Review of Systems Constitutional: Denies: Chills, Fever, Weight Change Eyes: Denies: Pain, Vision Change HEENT: Denies: Difficulty Hearing, Difficulty Swallowing, Sinus Congestion Cardiovascular: Denies: Chest Pain, Palpitations Respiratory: Denies: Cough, Shortness of Breath Gastrointestinal: Denies: Diarrhea, Nausea, Vomiting Genitourinary: Denies: Dysuria, Hematuria Endocrine: Denies: Heat/ Cold Intolerance, Polydipsia, Polyuria Hematologic/ Lymphatic: Denies: Easy Bruising, Easy Bleeding - Physical Exam Vital Signs Temp Pulse Resp BP 97.7 F L 79 18 149/78 H 02/06/18 12:50 02/06/18 12:50 02/06/18 12:50 02/06/18 12:50 General: Alert, Oriented x3, Cooperative, No apparent distress, Well developed, Well nourished HEENT: Atraumatic, PERRLA, EOMI, Normocephalic Oral: Moist Mucosa Neck: No JVD Lungs: Normal air movement Abdomen: Non-Distended Extremities: No clubbing, No cyanosis, No edema, No Calf Tenderness Skin: - - The abscess cavity on the patient's right scapular area it is smaller in size. Dimensions are documented elsewhere. The cavity appears to be filling in by secondary intention. There is no sign of infection or cellulitis at this time. There is no significant surrounding erythema. Wound Measurements and Assessment WC - Nurse 1 - General Ulcer Measurement Start: 02/06/18 12:50 Freq: Status: Active Protocol: Activity Type Activity Date Activity User E-Sign Co-Sign Detail Recorded Client Recorded Date Recorded By Document 02/06/18 12:50 [facility] [id number] 02/06/18 13:00 [facility] 02/06/18 12:50 Wound Center Nurse 1 [Ulcer Assessment] #1- RIGHT SCAPULA -Combined with other wound No -Current Size (cm) - Length 0.2 -Current Size (cm) - Width 0.4 -Current Size (cm) - Depth 0.3 -Total Square Cm 0.08 -Date of Last Picture (Recall this 02/06/18 field) -Photo Taken Yes -Epithelialization None Present -Tunneling No -Undermining/Tunneling No -Circular Undermining No -Exudate Amt Small (1-33%) -Exudate Type Purulent -Wound Margin Distinct, Outline Attached -Granulation Amt Large (67-100%) -Granulation Quality Red -Slough/Fibrin No -Necrosis Amt None Present (0 %) -Texture (Eve-wound Skin Appearance) Scarring -Moisture (Eve-wound Skin Appearance Assessed ) -Color (Eve-wound Skin Appearance) Assessed -Temperature (Eve-wound Skin No Abnormality Appearance) (Pt Warm) -Tenderness on Palpation (Eve-wound No Skin Appearance) -Ulcer Cleansing Rinsed/ Irrigated with Saline -Foul Odor after Cleansing No -Anesthetic Used 4% Lidocaine Solution WC - Nurse 2 - General Ulcer CM Notes Start: 02/06/18 12:50 Freq: Status: Active Protocol: Activity Type Activity Date Activity User E-Sign Co-Sign Detail Recorded Client Recorded Date Recorded By Document 02/06/18 13:06 [email or web address] [id number] 02/06/18 13:10 [email or web address] 02/06/18 13:06 Wound Center Nurse 2 [Procedure/Treatment] -Time 13:06 -Correct Patient Yes -Correct Side, Site, Position Yes -Correct Procedure Yes -Procedure Performed Yes -Type of Procedure Debridement -Clinical Debridement Subcutaneous -Post Debridement Size (cm) - Length 0.3 -Post Debridement Size (cm) - Width 0.5 -Post Debridement Size (cm) - Depth 0.3 -Total Square Cm 0.15 -Wound/Ulcer Outcome Not Healed -Ulcer Cleansing Rinsed/ Irrigated with Saline -Foul Odor after Cleansing No -Bioengineered Tissue No -Topical Lidocaine (%) 4 -Lidocaine (ml) 5 -Bleeding Controlled with NA -Treatment Response Procedure Tolerated Well [See Physician Procedure note for Specifics] Pain Scale: 0-10 Numeric [Pain] -Is Patient Pain Free? Yes Neurological: Cranial nerves II-XII grossly intact, Neuro grossly intact Psych/Mental Status: Normal Affect, Appropriate, Alert and oriented to time, place, person, mood and affect Debridement Note Post-Debridement Measurements/Treatment WC - Nurse 2 - General Ulcer CM Notes Start: 02/06/18 12:50 Freq: Status: Active Protocol: Activity Type Activity Date Activity User E-Sign Co-Sign Detail Recorded Client Recorded Date Recorded By Document 02/06/18 13:06 [email or web address] [id number] 02/06/18 13:10 [facility] 02/06/18 13:06 Wound Center Nurse 2 #1- RIGHT SCAPULA -Time 13:06 -Correct Patient Yes -Correct Side, Site, Position Yes -Correct Procedure Yes -Procedure Performed Yes -Type of Procedure Debridement -Clinical Debridement Subcutaneous -Post Debridement Size (cm) - Length 0.3 -Post Debridement Size (cm) - Width 0.5 -Post Debridement Size (cm) - Depth 0.3 -Total Square Cm 0.15 -Wound/Ulcer Outcome Not Healed -Ulcer Cleansing Rinsed/ Irrigated with Saline -Foul Odor after Cleansing No -Bioengineered Tissue No -Topical Lidocaine (%) 4 -Lidocaine (ml) 5 -Bleeding Controlled with NA -Treatment Response Procedure Tolerated Well Pain Scale: 0-10 Numeric Is Patient Pain Free? Yes Laterality: Right - Scapular area Type of Debridement: Excisional debridement Anesthesia Used: 4% Lidocaine Solution Depth: Down to and including healthy tissue, in the subcutaneous layer Percentage of wound debrided: 100 Instrument Used: 3mm curette Severity: Fat Layer Exposed Amount of bleeding with debridement: Mild Bleeding Controlled with: Compression and gauze Patient tolerated procedure well Assessment/Plan Active Problems Infected sebaceous cyst of skin (Acute) Assessment: This is a 72-year-old female with an apparent infected sebaceous cyst in the right scapular area. The cyst appears to have been present for many years prior to the infection, which developed in July 2017. Very little had been rendered in terms of care, but for a brief course of oral antibiotics in July 2017. Because the patient cannot reach the area involved , no local care had been implemented prior to her presentation here. A culture the patient's wound, obtained at her initial visit, was positive for MRSA. The patient was started on doxycycline 100 mg p.o. twice daily for total of 14 days , which is now completed. We have implemented the use of Silver Renetta, in anticipation that this would be changed by home health nursing every day or every other day. However, there has been some difficulty in arranging home health nursing care, and the patient has been without attention to the wound since her last visit here. In other words, the Silver Renetta placed last week has not been changed every day or every other day as had been anticipated. Efforts are underway to arrange home health nursing care, but with difficulties. Efforts have also been made to find the patient a primary care provider closer to her home in the [facility] [place]. The patient again denies that she has any friends or relatives who can assist her in the management of her wound. The location of the wound precludes the patient from packing by herself. She has been offered the option of returning to the wound center periodically, but has transportation issues. She has now agreed to return to the wound center twice weekly for wound packing changes. The patient's labs have been reviewed, and are relatively unremarkable. She has a mild anemia with a hemoglobin of 11.1 and hematocrit of 33.7. Platelet count is 214,000. MERLE globin A1c is 9.0. Patient's potassium is 3.7. Sodium is 139, chloride 104, BUN 13, creatinine 0.9, glucose 202. Plan: Cultures have been obtained, and were positive for MRSA. Patient has completed doxycycline 100 mg p.o. twice daily for total of 14 days. We are using Silver Renetta to pack the wound. Home health care nursing has been recruited to assist in daily wound care, but difficulties have been encountered , and troubleshooting continues. The patient is unable to return to [facility] frequently for wound packing changes. She claims to have no friends or family members who can assist in wound management. We are to seek services closer to the patient's home in [place], including [facility] or physicians in [facility]. Optimization of the patient's diabetes mellitus has been recommended. We will continue packing the patient's wound with Silver Renetta. We are to continue to seek an appropriate arrangement for serial wound packing changes between clinic visits. Patient will return in 1 week for reassessment. It is hoped that the site will heal by conservative measures. However, ultimately, definitive excision of the cyst or cyst wall may be required for definitive management once the infection has resolved and healing occurred. Influenza vaccine was not administered today. Patient is not a smoker. Patient weighs 180 pounds. She stands 5 feet 3 inches tall. My is 31.9, which places her in a class I category. Weight loss has been recommended, with collaboration with her primary care physician.
[2018-02-13 12:51] VITALS: BP 144/66; PULSE 95; RESP 18; TEMP 36.4
--- NOTE | 2018-02-13 13:32 | HP.PCM_ITS ---
(1) Infected sebaceous cyst of skin Status: Acute Current Visit: Yes Code(s): L72.3 - Sebaceous cyst; L08.9 - Local infection of the skin and subcutaneous tissue, unspecified (2) Obesity (BMI 30.0-34.9) Status: Chronic Current Visit: No Code(s): E66.9 - Obesity, unspecified (3) Hyperlipidemia Status: Chronic Current Visit: No Code(s): E78.5 - Hyperlipidemia, unspecified (4) Diabetes mellitus Status: Chronic Current Visit: No Qualifiers: Diabetes mellitus type: type 2 Code(s): E11.9 - Type 2 diabetes mellitus without complications (5) Hypertension Status: Chronic Current Visit: No Qualifiers: Code(s): I10 - Essential (primary) hypertension (6) Colitis Status: Chronic Current Visit: No Code(s): K52.9 - Noninfective gastroenteritis and colitis, unspecified History of Present Illness Date of Service: 02/13/18 Chief Complaint: Chronic, nonhealing infected sebaceous cyst, right scapular area History of Wound: This is a 72-year-old female who presented with an infected sebaceous cyst cavity which has been present since July 2017. On July 07, 2017, patient noted purulent drainage from the cyst in the right scapular area. She indicates that there was a bump at this site prior to the development of an infection. This was presumably a small subcutaneous cyst. The patient presented to her primary care physician, who treated the patient with oral antibiotics for approximately 10 days. No cultures were performed. The patient' s primary care physician conveyed his expectation that the site would subsequently heal, but it has not done so since it initially occurred in July 2017. When the patient was asked how she has been treating the site, she indicateed that I cannot even reach it. In other words, no local care had been implemented. The patient lives alone, and has no family members or neighbors who can assist. Upon initial presentation, the patient complained of a cyst that will not go away. The patient is known to be diabetic, and indicates that her hemoglobin A1c runs generally between 7 and 9. Past Medical History Past Medical History: Chronic Problems Obesity (BMI 30.0-34.9) (Chronic) Hyperlipidemia (Chronic) Diabetes mellitus (Chronic) Hypertension (Chronic) Colitis (Chronic) Surgical History: - - Patient is undergone thyroidectomy in July 2017. She is undergone bilateral vein stripping procedures. The ganglion has been excised from her right wrist. She is undergone laparoscopy in the past. She has had bilateral cataract surgery. Right thumb trigger finger surgery has been performed in the past. The patient is a Ab0. Allergies/Adverse Reactions: Allergies acetaminophen [From Vicodin] Allergy (Verified 01/09/18 14:02) Itching cat dander Allergy (Verified 01/09/18 14:04) Unknown dog dander Allergy (Verified 01/09/18 14:04) Unknown hydrocodone bitartrate [From Vicodin] Allergy (Verified 01/09/18 14:02) Itching levofloxacin [From Levaquin] Adverse Reaction (Verified 01/09/18 14:40) Rash beer Adverse Reaction (Uncoded 01/09/18 14:04) Unknown wine Adverse Reaction (Uncoded 01/09/18 14:04) Unknown Home Medications: Ambulatory Orders Medication Instructions Recorded Ascorbic Acid [Vitamin C] 1,000 mg PO DAILY@0800 01/11/14 Aspirin [Aspirin, Baby] 81 mg PO DAILY@0800 01/11/14 Atorvastatin Calcium [Lipitor] 20 mg PO QHS 01/11/14 Calcium Carb/Vitamin D 1 tab PO BIDCM 01/11/14 [Caltrate-600 With Vit D Tab] Celecoxib [Celebrex] 200 mg PO DAILY 01/11/14 Glimepiride [Amaryl] 4 mg PO BID 01/11/14 Lisinopril/Hydrochlorothiazide 1 tablet PO DAILY 01/11/14 [Zestoretic 20/25 Tablet] Multivit-Min/FA/Lycopene/Lut 1 each PO DAILY 01/11/14 [Centrum Silver Tablet] Tizanidine HCl [Zanaflex] 2 mg PO BID 01/11/14 traMADol [Ultram (G)] 100 mg PO TID 01/11/14 Esomeprazole Mag Trihydrate mg PO 01/09/18 [Nexium] Guaifenesin/Pseudoephedrne HCl 1 each PO 01/09/18 [Mucinex D ER 1,200-120 mg Tab] Insulin NPH/Reg 70/30 [Novolin 60 units SC QHS 01/09/18 70/30] Levothyroxine [Synthroid] 125 mcg PO DAILY 01/09/18 Montelukast [Singulair] 10 mg PO DAILY 01/09/18 Vit A/Vit C/Vit E/Zinc/Copper 1 each PO BID 01/09/18 [Preservision Areds Softgel] - Family History Paternal - - Patient is uncertain as to her father's medical history. Her mother at age of 52 with a history of alcoholism and hepatic cirrhosis. Smoking Status: Never smoker Tobacco Use: Non-smoker Review of Systems Constitutional: Denies: Chills, Fever, Weight Change Eyes: Denies: Pain, Vision Change HEENT: Denies: Difficulty Hearing, Difficulty Swallowing, Sinus Congestion Cardiovascular: Denies: Chest Pain, Palpitations Respiratory: Denies: Cough, Shortness of Breath Gastrointestinal: Denies: Diarrhea, Nausea, Vomiting Genitourinary: Denies: Dysuria, Hematuria Endocrine: Denies: Heat/ Cold Intolerance, Polydipsia, Polyuria Hematologic/ Lymphatic: Denies: Easy Bruising, Easy Bleeding - Physical Exam Vital Signs Temp Pulse Resp BP 97.5 F L 95 18 144/66 H 02/13/18 12:51 02/13/18 12:51 02/13/18 12:51 02/13/18 12:51 General: Alert, Oriented x3, Cooperative, No apparent distress, Well developed, Well nourished HEENT: Atraumatic, PERRLA, EOMI, Normocephalic Oral: Moist Mucosa Neck: No JVD Lungs: Normal air movement Abdomen: Non-Distended Extremities: No clubbing, No cyanosis, No edema, No Calf Tenderness Skin: No rashes, - - The cyst cavity persists in the right scapular area. There is undermining and tunneling. There is little change in the appearance or dimensions. The dimensions are documented elsewhere. The undermining is present at the 3 o'clock position. There is no sign of abelino infection or cellulitis. Wound Measurements and Assessment WC - Nurse 1 - General Ulcer Measurement Start: 02/06/18 12:50 Freq: Status: Active Protocol: Activity Type Activity Date Activity User E-Sign Co-Sign Detail Recorded Client Recorded Date Recorded By Document 02/13/18 12:51 [email or web address] [id number] 02/13/18 12:54 CATRACHITO 02/13/18 12:51 Wound Center Nurse 1 [Ulcer Assessment] #1- RIGHT SCAPULA -Combined with other wound No -Current Size (cm) - Length 0.4 -Current Size (cm) - Width 0.5 -Current Size (cm) - Depth 0.7 -Total Square Cm 0.20 -Date of Last Picture (Recall this 02/13/18 field) -Photo Taken Yes -Epithelialization None Present -Tunneling No -Undermining/Tunneling No -Circular Undermining No -Classification - Thickness Full Thickness without Exposed Support Structure -Exudate Amt Small (1-33%) -Exudate Type Serous -Wound Margin Distinct, Outline Attached -Granulation Amt None Present (0 %) -Granulation Quality N/A -Slough/Fibrin Yes -Necrosis Amt None Present (0 %) -Necrotic Tissue Type Adherent Slough -Structure Exposed N/A -Texture (Eve-wound Skin Appearance) No Abnormality -Moisture (Eve-wound Skin Appearance No Abnormality ) -Color (Eve-wound Skin Appearance) No Abnormality -Temperature (Eve-wound Skin No Abnormality Appearance) (Pt Warm) -Tenderness on Palpation (Eve-wound Yes Skin Appearance) -Ulcer Cleansing Rinsed/ Irrigated with Saline -Foul Odor after Cleansing No -Anesthetic Used 4% Lidocaine Solution Neurological: Cranial nerves II-XII grossly intact, Neuro grossly intact Psych/Mental Status: Normal Affect, Appropriate, Alert and oriented to time, place, person, mood and affect Debridement Note Post-Debridement Measurements/Treatment WC - Nurse 2 - General Ulcer CM Notes Start: 02/06/18 12:50 Freq: Status: Active Protocol: Activity Type Activity Date Activity User E-Sign Co-Sign Detail Recorded Client Recorded Date Recorded By Document 02/06/18 13:06 [email or web address] [id number] 02/06/18 13:10 CATRACHITO 02/06/18 13:06 Wound Center Nurse 2 #1- RIGHT SCAPULA -Time 13:06 -Correct Patient Yes -Correct Side, Site, Position Yes -Correct Procedure Yes -Procedure Performed Yes -Type of Procedure Debridement -Clinical Debridement Subcutaneous -Post Debridement Size (cm) - Length 0.3 -Post Debridement Size (cm) - Width 0.5 -Post Debridement Size (cm) - Depth 0.3 -Total Square Cm 0.15 -Wound/Ulcer Outcome Not Healed -Ulcer Cleansing Rinsed/ Irrigated with Saline -Foul Odor after Cleansing No -Bioengineered Tissue No -Topical Lidocaine (%) 4 -Lidocaine (ml) 5 -Bleeding Controlled with NA -Treatment Response Procedure Tolerated Well Pain Scale: 0-10 Numeric Is Patient Pain Free? Yes Laterality: Right - Scapular area Type of Debridement: Excisional debridement Anesthesia Used: 4% Lidocaine Solution Depth: Down to and including healthy tissue, in the subcutaneous layer Percentage of wound debrided: 100 Instrument Used: 3mm curette Severity: Fat Layer Exposed Amount of bleeding with debridement: Mild Bleeding Controlled with: Compression and gauze Patient tolerated procedure well Assessment/Plan Active Problems Infected sebaceous cyst of skin (Acute) Assessment: This is a 72-year-old female with an apparent infected sebaceous cyst in the right scapular area. The cyst appears to have been present for many years prior to the infection, which developed in July 2017. Very little had been rendered in terms of care, but for a brief course of oral antibiotics in July 2017. Because the patient cannot reach the area involved , no local care had been implemented prior to her presentation here. A culture the patient's wound, obtained at her initial visit, was positive for MRSA. The patient was started on doxycycline 100 mg p.o. twice daily for total of 14 days , which is now completed. We have implemented the use of Silver Renetta, in anticipation that this would be changed by home health nursing every day or every other day. However, there has been some difficulty in arranging home health nursing care. Arrangements have finally been made for the wound to be packed on Wednesdays and Fridays by an ACCOUNT MAINTENANCE REPRESENTATIVE near the patient's home. She is seen in the [facility] on Mondays, where her wound is also repacked. We are currently using Silver Renetta for packing purposes. The patient's labs have been reviewed, and are relatively unremarkable. She has a mild anemia with a hemoglobin of 11.1 and hematocrit of 33.7. Platelet count is 214,000. MERLE globin A1c is 9.0. Patient's potassium is 3.7. Sodium is 139, chloride 104, BUN 13, creatinine 0.9, glucose 202. Plan: Cultures have been obtained, and were positive for MRSA. Patient has completed doxycycline 100 mg p.o. twice daily for total of 14 days. We are using Silver Renetta to pack the wound. Arrangements have been made for the packing changes to be conducted 3 times weekly. Optimization of the patient's diabetes mellitus has been recommended. We will continue packing the patient's wound with Silver Renetta. Ultimately, if the patient's wound fails to show significant improvement over the next several weeks, it may be of some benefit to consider surgical unroofing and debridement in the operating room setting. The undermined and tunneled nature of the patient's wound seems to be an impediment to appropriate wound healing, as well as the possibility of retained cyst wall. Patient will return in 1 week for reassessment. It is hoped that the site will heal by conservative measures. Otherwise, surgical intervention may be required. Influenza vaccine was not administered today. Patient is not a smoker. Patient weighs 180 pounds. She stands 5 feet 3 inches tall. My is 31.9, which places her in a class I category. Weight loss has been recommended , with collaboration with her primary care physician.
[2018-02-20 13:05] VITALS: RESP 16; TEMP 36.2
--- NOTE | 2018-02-20 13:14 | WC ---
UNABLE TO OBTAIN BP/PULSE W/ MACHINE. R' VERBAL ENTIRE TIME. AFTER ATTEMPTS X3 R' STATES, THAT'S IT! NO MORE!.
--- NOTE | 2018-02-21 09:54 | PN_ITS ---
DATE OF SERVICE: 02/20/2018 This is a 72-year-old female with a chronic nonhealing infected sebaceous cyst in the right scapular area. She has been treated for her infection, and there is now no longer any sign of significant infection at the site of the cyst cavity. The patient has been using Silvercel to pack the small cavity. The cavity is smaller in size, as compared to her previous visit 1 week ago. There is a moderate amount of undermining extending to the right. There is no sign of infection or cellulitis. The cyst cavity is packed twice weekly by the patient's primary care physician's office. The third weekly packing change is occurring at the [facility]. The dimensions of the cavity are documented elsewhere, but the cavity is smaller than noted previously. The patient is to continue with packing by means of Silvercel twice weekly, in addition to her weekly wound healing center visits. Because next week is a national holiday, she will return in 2 weeks for reassessment. Debridement has been performed today. Initially, lidocaine gel was applied topically to provide an adequate level of anesthesia. A sterile 3-mm curette was then used to perform a debridement, through all layers of the dermis and into the subcutaneous tissues, constituting an excisional debridement. The debridement was tolerated well. A small amount of bleeding was encountered, which was easily controlled with manual pressure. The patient tolerated the procedure well. The patient is to return in 2 weeks for reassessment. The patient is not a smoker. Influenza vaccine was not administered today. The patient weighs 180 pounds. She stands 5 feet 3 inches tall. Her BMI is 31.9, which places her in a class 1 category. Weight loss has been recommended, and collaboration with her primary care physician has been recommended. Ramon Burnette MD T: NTS JOB: [id number]
== END 2018-03-02 23:59 ==
LOC: WC 12:30
PROVIDERS: Visit Provider Surgery
DX: L72.3 Sebaceous cyst (principal); L08.9 Local infection of the skin and subcutaneous tissue, unspecified; L98.492 Non-pressure chronic ulcer of skin of other sites with fat layer exposed; A49.02 Methicillin resistant Staphylococcus aureus infection, unspecified site; E66.9 Obesity, unspecified; E78.5 Hyperlipidemia, unspecified; E11.9 Type 2 diabetes mellitus without complications; I10 Essential (primary) hypertension; K52.9 Noninfective gastroenteritis and colitis, unspecified; Z79.4 Long term (current) use of insulin; Z79.82 Long term (current) use of aspirin; Z68.31 Body mass index [BMI] 31.0-31.9, adult; Z60.2 Problems related to living alone
CPT/HCPCS: 11042

== ENCOUNTER 2018-03-28 08:06 | Outpatient (RCR) | payer MEDICARE, SELFPAY ==
[2018-03-03 00:55] VITALS: PULSE 95; RESP 16; TEMP 36.2
[2018-03-28 08:06] VITALS: BP 150/79; PULSE 86; RESP 18; TEMP 37.1
--- NOTE | 2018-03-28 08:41 | PCM.WC.HP ---
(1) Infected sebaceous cyst of skin Status: Chronic Current Visit: Yes Code(s): L72.3 - Sebaceous cyst; L08.9 - Local infection of the skin and subcutaneous tissue, unspecified (2) Obesity (BMI 30.0-34.9) Status: Chronic Current Visit: Yes Code(s): E66.9 - Obesity, unspecified (3) Hyperlipidemia Status: Chronic Current Visit: No Code(s): E78.5 - Hyperlipidemia, unspecified (4) Diabetes mellitus Status: Chronic Current Visit: No Code(s): E11.9 - Type 2 diabetes mellitus without complications (5) Hypertension Status: Chronic Current Visit: No Qualifiers: Code(s): I10 - Essential (primary) hypertension (6) Colitis Status: Chronic Current Visit: No Code(s): K52.9 - Noninfective gastroenteritis and colitis, unspecified History of Present Illness Date of Service: 03/28/18 Chief Complaint: Chronic, nonhealing infected sebaceous cyst, right scapular area History of Wound: This is a 72-year-old female who presented with an infected sebaceous cyst cavity which has been present since July 2017. On July 07, 2017, patient noted purulent drainage from the cyst in the right scapular area. She indicates that there was a bump at this site prior to the development of an infection. This was presumably a small subcutaneous cyst. The patient presented to her primary care physician, who treated the patient with oral antibiotics for approximately 10 days. No cultures were performed. The patient's primary care physician conveyed his expectation that the site would subsequently heal, but it has not done so since it initially occurred in July 2017. When the patient was asked how she has been treating the site, she indicateed that I cannot even reach it. In other words, no local care had been implemented. The patient lives alone, and has no family members or neighbors who can assist. Upon initial presentation, the patient complained of a cyst that will not go away. The patient is known to be diabetic, and indicates that her hemoglobin A1c runs generally between 7 and 9. The patient presents today after several weeks of missed visits. She has been on vacation in [place] and [place]. Prior to that, her clinic visits were interrupted by virtue of scheduling issues and computer downtime. Patient presents today where it appears as though the skin has closed over the abscess cavity. Application of manual pressure to the area on the right upper back is productive of frankly purulent material, which has been cultured today with swabs, for both aerobic and anaerobic bacteria. We will await the culture results, and initiate antibiotic treatment accordingly. The patient was not packing the cavity as previously recommended, due to a variety of reasons, which include transportation issues, lack of availability of friends or family to assist, refusal of home health nursing care to provide home health assistance, and the location of the patient's wound which precludes self treatment. Past Medical History Past Medical History: Chronic Problems Infected sebaceous cyst of skin (Chronic) Obesity (BMI 30.0-34.9) (Chronic) Hyperlipidemia (Chronic) Diabetes mellitus (Chronic) Hypertension (Chronic) Colitis (Chronic) Surgical History: - - Patient is undergone thyroidectomy in July 2017. She is undergone bilateral vein stripping procedures. The ganglion has been excised from her right wrist. She is undergone laparoscopy in the past. She has had bilateral cataract surgery. Right thumb trigger finger surgery has been performed in the past. The patient is a Ab0. Allergies/Adverse Reactions: Allergies acetaminophen [From Vicodin] Allergy (Verified 01/09/18 14:02) Itching cat dander Allergy (Verified 01/09/18 14:04) Unknown dog dander Allergy (Verified 01/09/18 14:04) Unknown hydrocodone bitartrate [From Vicodin] Allergy (Verified 01/09/18 14:02) Itching levofloxacin [From Levaquin] Adverse Reaction (Verified 01/09/18 14:40) Rash beer Adverse Reaction (Uncoded 01/09/18 14:04) Unknown wine Adverse Reaction (Uncoded 01/09/18 14:04) Unknown Home Medications: Ambulatory Orders Medication Instructions Recorded Ascorbic Acid [Vitamin C] 1,000 mg PO DAILY@0800 01/11/14 Aspirin [Aspirin, Baby] 81 mg PO DAILY@0800 01/11/14 Atorvastatin Calcium [Lipitor] 20 mg PO QHS 01/11/14 Calcium Carb/Vitamin D 1 tab PO BIDCM 01/11/14 [Caltrate-600 With Vit D Tab] Celecoxib [Celebrex] 200 mg PO DAILY 01/11/14 Glimepiride [Amaryl] 4 mg PO BID 01/11/14 Lisinopril/Hydrochlorothiazide 1 tablet PO DAILY 04/11/14 [Zestoretic 20/25 Tablet] Multivit-Min/FA/Lycopene/Lut 1 each PO DAILY 01/11/14 [Centrum Silver Tablet] Tizanidine HCl [Zanaflex] 2 mg PO BID 01/11/14 traMADol [Ultram (G)] 100 mg PO TID 01/11/14 Esomeprazole Mag Trihydrate mg PO 01/09/18 [Nexium] Guaifenesin/Pseudoephedrne HCl 1 each PO 01/09/18 [Mucinex D ER 1,200-120 mg Tab] Insulin NPH/Reg 70/30 [Novolin 60 units SC QHS 01/09/18 70/30] Levothyroxine [Synthroid] 125 mcg PO DAILY 01/09/18 Montelukast [Singulair] 10 mg PO DAILY 01/09/18 Vit A/Vit C/Vit E/Zinc/Copper 1 each PO BID 01/09/18 [Preservision Areds Softgel] - Family History Paternal - - Patient is uncertain as to her father's medical history. Her mother at age of 52 with a history of alcoholism and hepatic cirrhosis. Smoking Status: Never smoker Tobacco Use: Non-smoker Review of Systems Constitutional: Denies: Chills, Fever, Weight Change Eyes: Denies: Pain, Vision Change HEENT: Denies: Difficulty Hearing, Difficulty Swallowing, Sinus Congestion Cardiovascular: Denies: Chest Pain, Palpitations Respiratory: Denies: Cough, Shortness of Breath Gastrointestinal: Denies: Diarrhea, Nausea, Vomiting Genitourinary: Denies: Dysuria, Hematuria Endocrine: Denies: Heat/ Cold Intolerance, Polydipsia, Polyuria Hematologic/ Lymphatic: Denies: Easy Bruising, Easy Bleeding - Physical Exam Vital Signs Temp Pulse Resp BP 98.7 F 86 18 150/79 H 03/28/18 08:06 03/28/18 08:06 03/28/18 08:06 03/28/18 08:06 General: Alert, Oriented x3, Cooperative, No apparent distress, Well developed, Well nourished HEENT: Atraumatic, PERRLA, EOMI, Normocephalic Oral: Moist Mucosa Neck: No JVD Lungs: Normal air movement Abdomen: Non-Distended Extremities: No clubbing, No cyanosis, No edema, No Calf Tenderness Skin: - - Initially, it is seen that the abscess cavity has closed, with the skin having grown over the small abscess cavity. As result, it appears as though the abscess cavity has filled with purulent material. Application of manual pressure to the area is productive of frankly purulent drainage. The drainage is very small in amount, and was cultured both aerobically and anaerobically. A sterile cotton tip applicator was then used to probe open the roof of the abscess cavity, revealing the abscess cavity to be smaller in size than previously noted. Its depth is approximately 2-3 mm. The base of the cavity appears relatively pink and healthy in appearance. The purulent drainage appears to have been completely evacuated. There is no significant surrounding erythema or cellulitis. Wound Measurements and Assessment WC - Nurse 1 - General Ulcer Measurement Start: 03/28/18 08:06 Freq: Status: Active Protocol: Activity Type Activity Date Activity User E-Sign Co-Sign Detail Recorded Client Recorded Date Recorded By Document 03/28/18 08:06 CA [id number] 03/28/18 08:13 CA 03/28/18 08:06 Wound Center Nurse 1 [Ulcer Assessment] #1- RIGHT SCAPULA -Current Size (cm) - Length 0.2 -Current Size (cm) - Width 0.2 -Current Size (cm) - Depth 0.4 -Total Square Cm 0.04 -Tunneling No -Undermining/Tunneling No -Circular Undermining No -Exudate Amt Small (1-33%) -Exudate Type Sanguineous -Granulation Amt Large (67-100%) -Granulation Quality [place] Red -Slough/Fibrin No -Necrosis Amt None Present (0 %) -Texture (Eve-wound Skin Appearance) Assessed Scarring -Moisture (Eve-wound Skin Appearance Assessed ) -Color (Eve-wound Skin Appearance) Assessed -Temperature (Eve-wound Skin No Abnormality Appearance) (Pt Warm) -Ulcer Cleansing Rinsed/ Irrigated with Saline -Anesthetic Used 4% Lidocaine Solution - Nurse 2 - General Ulcer CM Notes Start: 03/28/18 08:06 Freq: Status: Active Protocol: Activity Type Activity Date Activity User E-Sign Co-Sign Detail Recorded Client Recorded Date Recorded By Document 03/28/18 08:18 [id number] 03/28/18 08:31 03/28/18 08:18 Wound Center Nurse 2 [Procedure/Treatment] -Time 08:22 -Correct Patient Yes -Correct Side, Site, Position Yes -Correct Procedure Yes -Procedure Performed Yes -Type of Procedure Debridement -Clinical Debridement Subcutaneous -Post Debridement Size (cm) - Length 0.1 -Post Debridement Size (cm) - Width 0.1 -Post Debridement Size (cm) - Depth 0.3 -Total Square Cm 0.01 -Wound/Ulcer Outcome Not Healed -Ulcer Cleansing Rinsed/ Irrigated with Saline -Foul Odor after Cleansing No -Bioengineered Tissue No -Topical Lidocaine (%) 4 -Lidocaine (ml) 5 -Bleeding Controlled with Pressure -Treatment Response Procedure Tolerated Well [See Physician Procedure note for Specifics] Pain Scale: 0-10 Numeric [Pain] -Is Patient Pain Free? Yes Musculoskeletal: No Muscle Wasting Neurological: Cranial nerves II-XII grossly intact, Neuro grossly intact Psych/Mental Status: Normal Affect, Appropriate, Alert and oriented to time, place, person, mood and affect Debridement Note Post-Debridement Measurements/Treatment WC - Nurse 2 - General Ulcer CM Notes Start: 03/28/18 08:06 Freq: Status: Active Protocol: Activity Type Activity Date Activity User E-Sign Co-Sign Detail Recorded Client Recorded Date Recorded By Document 03/28/18 08:18 [id number] 03/28/18 08:31 03/28/18 08:18 Wound Center Nurse 2 #1- RIGHT SCAPULA -Time 08:22 -Correct Patient Yes -Correct Side, Site, Position Yes -Correct Procedure Yes -Procedure Performed Yes -Type of Procedure Debridement -Clinical Debridement Subcutaneous -Post Debridement Size (cm) - Length 0.1 -Post Debridement Size (cm) - Width 0.1 -Post Debridement Size (cm) - Depth 0.3 -Total Square Cm 0.01 -Wound/Ulcer Outcome Not Healed -Ulcer Cleansing Rinsed/ Irrigated with Saline -Foul Odor after Cleansing No -Bioengineered Tissue No -Topical Lidocaine (%) 4 -Lidocaine (ml) 5 -Bleeding Controlled with Pressure -Treatment Response Procedure Tolerated Well Pain Scale: 0-10 Numeric Is Patient Pain Free? Yes Laterality: Right - Upper back Type of Debridement: Excisional debridement Depth: Down to and including healthy tissue, in the subcutaneous layer Percentage of wound debrided: 100 Instrument Used: - - Very easily swab and debrided using gentle manipulation with a sterile cotton tip applicator. Severity: Fat Layer Exposed Amount of bleeding with debridement: Mild Bleeding Controlled with: Compression and gauze Patient tolerated procedure well Assessment/Plan Active Problems Infected sebaceous cyst of skin (Chronic) Obesity (BMI 30.0-34.9) (Chronic) Assessment: This is a 72-year-old female with an apparent infected sebaceous cyst in the right scapular area. The cyst appears to have been present for many years prior to the infection, which developed in July 2017. Very little had been rendered in terms of care, but for a brief course of oral antibiotics in July 2017. Because the patient cannot reach the area involved, no local care had been implemented prior to her presentation here. A culture the patient's wound, obtained at her initial visit, was positive for MRSA. The patient was started on doxycycline 100 mg p.o. twice daily for total of 14 days, which is now completed. There has been some difficulty in arranging home health nursing care. In addition, the patient appears to have no friends, acquaintances, or family members who can assist in the wound management. As result of her recent vacation, and other factors, the patient's right upper back wound has not been packed or tended to in several weeks. As result, the skin has healed over, resulting in a closed abscess cavity, which has filled with purulent material. This has been cultured today, and the abscess cavity has been unroofed. It appears to be smaller in size, and dimensions are documented elsewhere. The patient's labs have been reviewed, and are relatively unremarkable. She has a mild anemia with a hemoglobin of 11.1 and hematocrit of 33.7. Platelet count is 214,000. MERLE globin A1c is 9.0. Patient's potassium is 3.7. Sodium is 139, chloride 104, BUN 13, creatinine 0.9, glucose 202. Plan: We will await the results of cultures, and consider antibiotic management as appropriate. At this juncture, the abscess cavity is very small and shallow in depth. It is not of sufficient size to admit any type of packing. However, in an effort to avoid skin closure, it is recommended that the site be probed daily or every other day with a sterile cotton tip applicator. A dry sterile gauze dressing can then be applied. We have discussed the options of management, in a great deal of detail. One option is to stay the current course, in the hopes that the abscess cavity will eventually completely heal, without residual infection. In such case, it would then be possible to intervene surgically, excise the entire cyst area, and anticipate that primary closure could be a possibility. Alternatively, surgical intervention could be considered prior to complete closure of the open infected wound, in which case excision could be performed, but the wound would require healing by secondary intention, which would necessitate additional weeks of visit to the wound center, if not months of visits. These 2 options have been thoroughly explained to the patient. She is somewhat frustrated and a bit combative today with respect to the current state of affairs. The options of management have been discussed in great detail, and the patient appears to favor a more aggressive approach which would include excision of the entire infected cyst area, and subsequent healing by secondary intention, which could include options such as the wound VAC or skin graft substitutes. It has been explained that either surgical option would require insurance preauthorization, a process which will be initiated. At this juncture, there remains the issue of daily wound care, related to transportation issues on the part of the patient, and a lack of home care assistance. Will defer to wound Center nursing staff to troubleshoot these issues. The patient has been offered return visits to the wound center on a frequent basis, but transportation issues appear to limit this possibility. Optimization of the patient's diabetes mellitus has been recommended. We will seek preauthorization for surgical intervention, which will include surgical unroofing and debridement of the infected right upper back wound. Patient will return in 1 week for reevaluation. Influenza vaccine was not administered today. Patient is not a smoker. Patient weighs 180 pounds. She stands 5 feet 3 inches tall. My is 31.9, which places her in a class I category. Weight loss has been recommended, with collaboration with her primary care physician.
--- NOTE | 2018-03-28 08:57 | HP.PCM_ITS ---
(1) Infected sebaceous cyst of skin Status: Chronic Current Visit: Yes Code(s): L72.3 - Sebaceous cyst; L08.9 - Local infection of the skin and subcutaneous tissue, unspecified (2) Obesity (BMI 30.0-34.9) Status: Chronic Current Visit: Yes Code(s): E66.9 - Obesity, unspecified (3) Hyperlipidemia Status: Chronic Current Visit: No Code(s): E78.5 - Hyperlipidemia, unspecified (4) Diabetes mellitus Status: Chronic Current Visit: No Code(s): E11.9 - Type 2 diabetes mellitus without complications (5) Hypertension Status: Chronic Current Visit: No Qualifiers: Code(s): I10 - Essential (primary) hypertension (6) Colitis Status: Chronic Current Visit: No Code(s): K52.9 - Noninfective gastroenteritis and colitis, unspecified History of Present Illness Date of Service: 03/28/18 Chief Complaint: Chronic, nonhealing infected sebaceous cyst, right scapular area History of Wound: This is a 72-year-old female who presented with an infected sebaceous cyst cavity which has been present since July 2017. On July 07, 2017, patient noted purulent drainage from the cyst in the right scapular area. She indicates that there was a bump at this site prior to the development of an infection. This was presumably a small subcutaneous cyst. The patient presented to her primary care physician, who treated the patient with oral antibiotics for approximately 10 days. No cultures were performed. The patient' s primary care physician conveyed his expectation that the site would subsequently heal, but it has not done so since it initially occurred in July 2017. When the patient was asked how she has been treating the site, she indicateed that I cannot even reach it. In other words, no local care had been implemented. The patient lives alone, and has no family members or neighbors who can assist. Upon initial presentation, the patient complained of a cyst that will not go away. The patient is known to be diabetic, and indicates that her hemoglobin A1c runs generally between 7 and 9. The patient presents today after several weeks of missed visits. She has been on vacation in [place] and [place]. Prior to that, her clinic visits were interrupted by virtue of scheduling issues and computer downtime. Patient presents today where it appears as though the skin has closed over the abscess cavity. Application of manual pressure to the area on the right upper back is productive of frankly purulent material, which has been cultured today with swabs, for both aerobic and anaerobic bacteria. We will await the culture results, and initiate antibiotic treatment accordingly. The patient was not packing the cavity as previously recommended, due to a variety of reasons, which include transportation issues, lack of availability of friends or family to assist, refusal of home health nursing care to provide home health assistance , and the location of the patient's wound which precludes self treatment. Past Medical History Past Medical History: Chronic Problems Infected sebaceous cyst of skin (Chronic) Obesity (BMI 30.0-34.9) (Chronic) Hyperlipidemia (Chronic) Diabetes mellitus (Chronic) Hypertension (Chronic) Colitis (Chronic) Surgical History: - - Patient is undergone thyroidectomy in July 2017. She is undergone bilateral vein stripping procedures. The ganglion has been excised from her right wrist. She is undergone laparoscopy in the past. She has had bilateral cataract surgery. Right thumb trigger finger surgery has been performed in the past. The patient is a Ab0. Allergies/Adverse Reactions: Allergies acetaminophen [From Vicodin] Allergy (Verified 01/09/18 14:02) Itching cat dander Allergy (Verified 01/09/18 14:04) Unknown dog dander Allergy (Verified 01/09/18 14:04) Unknown hydrocodone bitartrate [From Vicodin] Allergy (Verified 01/09/18 14:02) Itching levofloxacin [From Levaquin] Adverse Reaction (Verified 01/09/18 14:40) Rash beer Adverse Reaction (Uncoded 01/09/18 14:04) Unknown wine Adverse Reaction (Uncoded 01/09/18 14:04) Unknown Home Medications: Ambulatory Orders Medication Instructions Recorded Ascorbic Acid [Vitamin C] 1,000 mg PO DAILY@0800 01/11/14 Aspirin [Aspirin, Baby] 81 mg PO DAILY@0800 01/11/14 Atorvastatin Calcium [Lipitor] 20 mg PO QHS 01/11/14 Calcium Carb/Vitamin D 1 tab PO BIDCM 01/11/14 [Caltrate-600 With Vit D Tab] Celecoxib [Celebrex] 200 mg PO DAILY 01/11/14 Glimepiride [Amaryl] 4 mg PO BID 01/11/14 Lisinopril/Hydrochlorothiazide 1 tablet PO DAILY 04/11/14 [Zestoretic 20/25 Tablet] Multivit-Min/FA/Lycopene/Lut 1 each PO DAILY 01/11/14 [Centrum Silver Tablet] Tizanidine HCl [Zanaflex] 2 mg PO BID 01/11/14 traMADol [Ultram (G)] 100 mg PO TID 01/11/14 Esomeprazole Mag Trihydrate mg PO 01/09/18 [Nexium] Guaifenesin/Pseudoephedrne HCl 1 each PO 01/09/18 [Mucinex D ER 1,200-120 mg Tab] Insulin NPH/Reg 70/30 [Novolin 60 units SC QHS 01/09/18 70/30] Levothyroxine [Synthroid] 125 mcg PO DAILY 01/09/18 Montelukast [Singulair] 10 mg PO DAILY 01/09/18 Vit A/Vit C/Vit E/Zinc/Copper 1 each PO BID 01/09/18 [Preservision Areds Softgel] - Family History Paternal - - Patient is uncertain as to her father's medical history. Her mother at age of 52 with a history of alcoholism and hepatic cirrhosis. Smoking Status: Never smoker Tobacco Use: Non-smoker Review of Systems Constitutional: Denies: Chills, Fever, Weight Change Eyes: Denies: Pain, Vision Change HEENT: Denies: Difficulty Hearing, Difficulty Swallowing, Sinus Congestion Cardiovascular: Denies: Chest Pain, Palpitations Respiratory: Denies: Cough, Shortness of Breath Gastrointestinal: Denies: Diarrhea, Nausea, Vomiting Genitourinary: Denies: Dysuria, Hematuria Endocrine: Denies: Heat/ Cold Intolerance, Polydipsia, Polyuria Hematologic/ Lymphatic: Denies: Easy Bruising, Easy Bleeding - Physical Exam Vital Signs Temp Pulse Resp BP 98.7 F 86 18 150/79 H 03/28/18 08:06 03/28/18 08:06 03/28/18 08:06 03/28/18 08:06 General: Alert, Oriented x3, Cooperative, No apparent distress, Well developed, Well nourished HEENT: Atraumatic, PERRLA, EOMI, Normocephalic Oral: Moist Mucosa Neck: No JVD Lungs: Normal air movement Abdomen: Non-Distended Extremities: No clubbing, No cyanosis, No edema, No Calf Tenderness Skin: - - Initially, it is seen that the abscess cavity has closed, with the skin having grown over the small abscess cavity. As result, it appears as though the abscess cavity has filled with purulent material. Application of manual pressure to the area is productive of frankly purulent drainage. The drainage is very small in amount, and was cultured both aerobically and anaerobically. A sterile cotton tip applicator was then used to probe open the roof of the abscess cavity, revealing the abscess cavity to be smaller in size than previously noted. Its depth is approximately 2-3 mm. The base of the cavity appears relatively pink and healthy in appearance. The purulent drainage appears to have been completely evacuated. There is no significant surrounding erythema or cellulitis. Wound Measurements and Assessment WC - Nurse 1 - General Ulcer Measurement Start: 03/28/18 08:06 Freq: Status: Active Protocol: Activity Type Activity Date Activity User E-Sign Co-Sign Detail Recorded Client Recorded Date Recorded By Document 03/28/18 08:06 DC [id number] 03/28/18 08:13 DC 03/28/18 08:06 Wound Center Nurse 1 [Ulcer Assessment] #1- RIGHT SCAPULA -Current Size (cm) - Length 0.2 -Current Size (cm) - Width 0.2 -Current Size (cm) - Depth 0.4 -Total Square Cm 0.04 -Tunneling No -Undermining/Tunneling No -Circular Undermining No -Exudate Amt Small (1-33%) -Exudate Type Sanguineous -Granulation Amt Large (67-100%) -Granulation Quality Blue Ball Red -Slough/Fibrin No -Necrosis Amt None Present (0 %) -Texture (Eve-wound Skin Appearance) Assessed Scarring -Moisture (Eve-wound Skin Appearance Assessed ) -Color (Eve-wound Skin Appearance) Assessed -Temperature (Eve-wound Skin No Abnormality Appearance) (Pt Warm) -Ulcer Cleansing Rinsed/ Irrigated with Saline -Anesthetic Used 4% Lidocaine Solution - Nurse 2 - General Ulcer CM Notes Start: 03/28/18 08:06 Freq: Status: Active Protocol: Activity Type Activity Date Activity User E-Sign Co-Sign Detail Recorded Client Recorded Date Recorded By Document 03/28/18 08:18 [id number] 03/28/18 08:31 03/28/18 08:18 Wound Center Nurse 2 [Procedure/Treatment] -Time 08:22 -Correct Patient Yes -Correct Side, Site, Position Yes -Correct Procedure Yes -Procedure Performed Yes -Type of Procedure Debridement -Clinical Debridement Subcutaneous -Post Debridement Size (cm) - Length 0.1 -Post Debridement Size (cm) - Width 0.1 -Post Debridement Size (cm) - Depth 0.3 -Total Square Cm 0.01 -Wound/Ulcer Outcome Not Healed -Ulcer Cleansing Rinsed/ Irrigated with Saline -Foul Odor after Cleansing No -Bioengineered Tissue No -Topical Lidocaine (%) 4 -Lidocaine (ml) 5 -Bleeding Controlled with Pressure -Treatment Response Procedure Tolerated Well [See Physician Procedure note for Specifics] Pain Scale: 0-10 Numeric [Pain] -Is Patient Pain Free? Yes Musculoskeletal: No Muscle Wasting Neurological: Cranial nerves II-XII grossly intact, Neuro grossly intact Psych/Mental Status: Normal Affect, Appropriate, Alert and oriented to time, place, person, mood and affect Debridement Note Post-Debridement Measurements/Treatment WC - Nurse 2 - General Ulcer CM Notes Start: 03/28/18 08:06 Freq: Status: Active Protocol: Activity Type Activity Date Activity User E-Sign Co-Sign Detail Recorded Client Recorded Date Recorded By Document 03/28/18 08:18 [id number] 03/28/18 08:31 03/28/18 08:18 Wound Center Nurse 2 #1- RIGHT SCAPULA -Time 08:22 -Correct Patient Yes -Correct Side, Site, Position Yes -Correct Procedure Yes -Procedure Performed Yes -Type of Procedure Debridement -Clinical Debridement Subcutaneous -Post Debridement Size (cm) - Length 0.1 -Post Debridement Size (cm) - Width 0.1 -Post Debridement Size (cm) - Depth 0.3 -Total Square Cm 0.01 -Wound/Ulcer Outcome Not Healed -Ulcer Cleansing Rinsed/ Irrigated with Saline -Foul Odor after Cleansing No -Bioengineered Tissue No -Topical Lidocaine (%) 4 -Lidocaine (ml) 5 -Bleeding Controlled with Pressure -Treatment Response Procedure Tolerated Well Pain Scale: 0-10 Numeric Is Patient Pain Free? Yes Laterality: Right - Upper back Type of Debridement: Excisional debridement Depth: Down to and including healthy tissue, in the subcutaneous layer Percentage of wound debrided: 100 Instrument Used: - - Very easily swab and debrided using gentle manipulation with a sterile cotton tip applicator. Severity: Fat Layer Exposed Amount of bleeding with debridement: Mild Bleeding Controlled with: Compression and gauze Patient tolerated procedure well Assessment/Plan Active Problems Infected sebaceous cyst of skin (Chronic) Obesity (BMI 30.0-34.9) (Chronic) Assessment: This is a 72-year-old female with an apparent infected sebaceous cyst in the right scapular area. The cyst appears to have been present for many years prior to the infection, which developed in July 2017. Very little had been rendered in terms of care, but for a brief course of oral antibiotics in July 2017. Because the patient cannot reach the area involved , no local care had been implemented prior to her presentation here. A culture the patient's wound, obtained at her initial visit, was positive for MRSA. The patient was started on doxycycline 100 mg p.o. twice daily for total of 14 days , which is now completed. There has been some difficulty in arranging home health nursing care. In addition, the patient appears to have no friends, acquaintances, or family members who can assist in the wound management. As result of her recent vacation, and other factors, the patient's right upper back wound has not been packed or tended to in several weeks. As result, the skin has healed over, resulting in a closed abscess cavity, which has filled with purulent material. This has been cultured today, and the abscess cavity has been unroofed. It appears to be smaller in size, and dimensions are documented elsewhere. The patient's labs have been reviewed, and are relatively unremarkable. She has a mild anemia with a hemoglobin of 11.1 and hematocrit of 33.7. Platelet count is 214,000. MERLE globin A1c is 9.0. Patient's potassium is 3.7. Sodium is 139, chloride 104, BUN 13, creatinine 0.9, glucose 202. Plan: We will await the results of cultures, and consider antibiotic management as appropriate. At this juncture, the abscess cavity is very small and shallow in depth. It is not of sufficient size to admit any type of packing. However, in an effort to avoid skin closure, it is recommended that the site be probed daily or every other day with a sterile cotton tip applicator. A dry sterile gauze dressing can then be applied. We have discussed the options of management , in a great deal of detail. One option is to stay the current course, in the hopes that the abscess cavity will eventually completely heal, without residual infection. In such case, it would then be possible to intervene surgically, excise the entire cyst area, and anticipate that primary closure could be a possibility. Alternatively, surgical intervention could be considered prior to complete closure of the open infected wound, in which case excision could be performed, but the wound would require healing by secondary intention, which would necessitate additional weeks of visit to the wound center, if not months of visits. These 2 options have been thoroughly explained to the patient. She is somewhat frustrated and a bit combative today with respect to the current state of affairs. The options of management have been discussed in great detail , and the patient appears to favor a more aggressive approach which would include excision of the entire infected cyst area, and subsequent healing by secondary intention, which could include options such as the wound VAC or skin graft substitutes. It has been explained that either surgical option would require insurance preauthorization, a process which will be initiated. At this juncture, there remains the issue of daily wound care, related to transportation issues on the part of the patient, and a lack of home care assistance. Will defer to wound Center nursing staff to troubleshoot these issues. The patient has been offered return visits to the wound center on a frequent basis, but transportation issues appear to limit this possibility. Optimization of the patient's diabetes mellitus has been recommended. We will seek preauthorization for surgical intervention, which will include surgical unroofing and debridement of the infected right upper back wound. Patient will return in 1 week for reevaluation. Influenza vaccine was not administered today. Patient is not a smoker. Patient weighs 180 pounds. She stands 5 feet 3 inches tall. My is 31.9, which places her in a class I category. Weight loss has been recommended, with collaboration with her primary care physician.
== END 2018-04-01 23:59 ==
LOC: WC 08:06
PROVIDERS: Visit Provider Surgery
DX: L72.3 Sebaceous cyst (principal); E11.9 Type 2 diabetes mellitus without complications; E78.5 Hyperlipidemia, unspecified; E66.9 Obesity, unspecified; Z68.31 Body mass index [BMI] 31.0-31.9, adult; Z71.3 Dietary counseling and surveillance; I10 Essential (primary) hypertension; L08.89 Other specified local infections of the skin and subcutaneous tissue; B95.62 Methicillin resistant Staphylococcus aureus infection as the cause of diseases classified elsewhere; L02.413 Cutaneous abscess of right upper limb; D64.9 Anemia, unspecified; K52.9 Noninfective gastroenteritis and colitis, unspecified; Z79.899 Other long term (current) drug therapy; Z79.82 Long term (current) use of aspirin; L98.492 Non-pressure chronic ulcer of skin of other sites with fat layer exposed
CPT/HCPCS: 11042; 87070; 87075; 87077; 87186; 87205

== ENCOUNTER 2018-04-11 08:00 | Outpatient (RCR) | payer MEDICARE, SELFPAY ==
[2018-04-02 00:48] VITALS: BP 150/79; PULSE 86; RESP 18; TEMP 37.1
[2018-04-04 08:11] VITALS: BP 136/83; PULSE 92; RESP 18; TEMP 36.2
--- NOTE | 2018-04-04 09:27 | PCM.WC.HP ---
(1) Infected sebaceous cyst of skin Status: Chronic Current Visit: Yes Code(s): L72.3 - Sebaceous cyst; L08.9 - Local infection of the skin and subcutaneous tissue, unspecified (2) Obesity (BMI 30.0-34.9) Status: Chronic Current Visit: No Code(s): E66.9 - Obesity, unspecified (3) Hyperlipidemia Status: Chronic Current Visit: No Code(s): E78.5 - Hyperlipidemia, unspecified (4) Diabetes mellitus Status: Chronic Current Visit: Yes Qualifiers: Diabetes mellitus type: type 2 Code(s): E11.9 - Type 2 diabetes mellitus without complications (5) Hypertension Status: Chronic Current Visit: No Qualifiers: Code(s): I10 - Essential (primary) hypertension (6) Colitis Status: Chronic Current Visit: No Code(s): K52.9 - Noninfective gastroenteritis and colitis, unspecified History of Present Illness Date of Service: 04/04/18 Chief Complaint: Chronic, nonhealing infected sebaceous cyst, right scapular area History of Wound: This is a 72-year-old female who presented with an infected sebaceous cyst cavity which has been present since July 2017. On July 07, 2017, patient noted purulent drainage from the cyst in the right scapular area. She indicates that there was a bump at this site prior to the development of an infection. This was presumably a small subcutaneous cyst. The patient presented to her primary care physician, who treated the patient with oral antibiotics for approximately 10 days. No cultures were performed. The patient's primary care physician conveyed his expectation that the site would subsequently heal, but it has not done so since it initially occurred in July 2017. When the patient was asked how she has been treating the site, she indicateed that I cannot even reach it. In other words, no local care had been implemented. The patient lives alone, and has no family members or neighbors who can assist. Upon initial presentation, the patient complained of a cyst that will not go away. The patient is known to be diabetic, and indicates that her hemoglobin A1c runs generally between 7 and 9. The patient presents today after several weeks of missed visits. She has been on vacation in [place] and [place]. Prior to that, her clinic visits were interrupted by virtue of scheduling issues and computer downtime. Patient presents today where it appears as though the skin has closed over the abscess cavity. Application of manual pressure to the area on the right upper back is productive of frankly purulent material, which has been cultured today with swabs, for both aerobic and anaerobic bacteria. We will await the culture results, and initiate antibiotic treatment accordingly. The patient was not packing the cavity as previously recommended, due to a variety of reasons, which include transportation issues, lack of availability of friends or family to assist, refusal of home health nursing care to provide home health assistance, and the location of the patient's wound which precludes self treatment. Past Medical History Past Medical History: Chronic Problems Infected sebaceous cyst of skin (Chronic) Obesity (BMI 30.0-34.9) (Chronic) Hyperlipidemia (Chronic) Diabetes mellitus (Chronic) Hypertension (Chronic) Colitis (Chronic) Surgical History: - - Patient is undergone thyroidectomy in July 2017. She is undergone bilateral vein stripping procedures. The ganglion has been excised from her right wrist. She is undergone laparoscopy in the past. She has had bilateral cataract surgery. Right thumb trigger finger surgery has been performed in the past. The patient is a Ab0. Allergies/Adverse Reactions: Allergies acetaminophen [From Vicodin] Allergy (Verified 01/09/18 14:02) Itching cat dander Allergy (Verified 01/09/18 14:04) Unknown dog dander Allergy (Verified 01/09/18 14:04) Unknown hydrocodone bitartrate [From Vicodin] Allergy (Verified 01/09/18 14:02) Itching levofloxacin [From Levaquin] Adverse Reaction (Verified 01/09/18 14:40) Rash beer Adverse Reaction (Uncoded 01/09/18 14:04) Unknown wine Adverse Reaction (Uncoded 01/09/18 14:04) Unknown Home Medications: Ambulatory Orders Medication Instructions Recorded Ascorbic Acid [Vitamin C] 1,000 mg PO DAILY@0800 01/11/14 Aspirin [Aspirin, Baby] 81 mg PO DAILY@0800 01/11/14 Atorvastatin Calcium [Lipitor] 20 mg PO QHS 01/11/14 Calcium Carb/Vitamin D 1 tab PO BIDCM 01/11/14 [Caltrate-600 With Vit D Tab] Celecoxib [Celebrex] 200 mg PO DAILY 01/11/14 Glimepiride [Amaryl] 4 mg PO BID 01/11/14 Lisinopril/Hydrochlorothiazide 1 tablet PO DAILY 01/11/14 [Zestoretic 20/25 Tablet] Multivit-Min/FA/Lycopene/Lut 1 each PO DAILY 01/11/14 [Centrum Silver Tablet] Tizanidine HCl [Zanaflex] 2 mg PO BID 01/11/14 traMADol [Ultram (G)] 100 mg PO TID 01/11/14 Esomeprazole Mag Trihydrate mg PO 01/09/18 [Nexium] Guaifenesin/Pseudoephedrne HCl 1 each PO 01/09/18 [Mucinex D ER 1,200-120 mg Tab] Insulin NPH/Reg 70/30 [Novolin 60 units SC QHS 01/09/18 70/30] Levothyroxine [Synthroid] 125 mcg PO DAILY 01/09/18 Montelukast [Singulair] 10 mg PO DAILY 01/09/18 Vit A/Vit C/Vit E/Zinc/Copper 1 each PO BID 01/09/18 [Preservision Areds Softgel] - Family History Paternal - - Patient is uncertain as to her father's medical history. Her mother at age of 52 with a history of alcoholism and hepatic cirrhosis. Smoking Status: Never smoker Tobacco Use: Non-smoker Review of Systems Constitutional: Denies: Chills, Fever, Weight Change Eyes: Denies: Pain, Vision Change HEENT: Denies: Difficulty Hearing, Difficulty Swallowing, Sinus Congestion Cardiovascular: Denies: Chest Pain, Palpitations Respiratory: Denies: Cough, Shortness of Breath Gastrointestinal: Denies: Diarrhea, Nausea, Vomiting Genitourinary: Denies: Dysuria, Hematuria Endocrine: Denies: Heat/ Cold Intolerance, Polydipsia, Polyuria Hematologic/ Lymphatic: Denies: Easy Bruising, Easy Bleeding - Physical Exam Vital Signs Temp Pulse Resp BP 97.1 F L 92 18 136/83 H 04/04/18 08:11 04/04/18 08:11 04/04/18 08:11 04/04/18 08:11 General: Alert, Oriented x3, Cooperative, No apparent distress, Well developed, Well nourished HEENT: Atraumatic, PERRLA, EOMI, Normocephalic Oral: Moist Mucosa Neck: No JVD Lungs: Normal air movement Abdomen: Non-Distended Extremities: No clubbing, No cyanosis, No edema Skin: - - The infected site on the patient's right upper back looks markedly improved. The cavity appears to be filling in, and there is epithelialization at the site. In affect, looks nearly healed. There is no fluctuance or erythema to suggest infection. There is no obvious cellulitis. There is no drainage from the site. Wound Measurements and Assessment - Nurse 1 - General Ulcer Measurement Start: 04/04/18 08:11 Freq: Status: Active Protocol: Activity Type Activity Date Activity User E-Sign Co-Sign Detail Recorded Client Recorded Date Recorded By Document 04/04/18 08:11 [id number] 04/04/18 08:16 CS 04/04/18 08:11 Wound Center Nurse 1 [Ulcer Assessment] #1- RIGHT SCAPULA -Combined with other wound No -Current Size (cm) - Length 0.4 -Current Size (cm) - Width 0.3 -Current Size (cm) - Depth 0.1 -Total Square Cm 0.12 -Photo Taken No -Epithelialization Small 1-33% -Tunneling No -Undermining/Tunneling No -Exudate Amt None Present (0 %) -Wound Margin Distinct, Outline Attached -Structure Exposed None/Limited to Skin Breakdown -Texture (Eve-wound Skin Appearance) No Abnormality Assessed -Moisture (Eve-wound Skin Appearance No Abnormality ) Assessed -Color (Eve-wound Skin Appearance) Assessed Erythema -Temperature (Eve-wound Skin No Abnormality Appearance) (Pt Warm) -Tenderness on Palpation (Eve-wound Yes Skin Appearance) -Ulcer Cleansing Rinsed/ Irrigated with Saline -Foul Odor after Cleansing No -Anesthetic Used 4% Lidocaine Solution [Edema Assessment] -Lower Limb Edema Present NA - Nurse 2 - General Ulcer CM Notes Start: 04/04/18 08:11 Freq: Status: Active Protocol: Activity Type Activity Date Activity User E-Sign Co-Sign Detail Recorded Client Recorded Date Recorded By Document 04/04/18 09:20 JS [id number] 04/04/18 09:20 JS 04/04/18 09:20 Wound Center Nurse 2 [Procedure/Treatment] #1- RIGHT SCAPULA -Time 09:20 -Correct Patient Yes -Correct Side, Site, Position Yes -Correct Procedure Yes -Procedure Performed No -Wound/Ulcer Outcome Not Healed -Ulcer Cleansing Rinsed/ Irrigated with Saline -Foul Odor after Cleansing No -Bleeding Controlled with NA -Treatment Response Procedure Tolerated Well [See Physician Procedure note for Specifics] Pain Scale: 0-10 Numeric [Pain] -Is Patient Pain Free? Yes Musculoskeletal: No Muscle Wasting Neurological: Cranial nerves II-XII grossly intact, Neuro grossly intact Psych/Mental Status: Normal Affect, Appropriate, Alert and oriented to time, place, person, mood and affect Debridement Note Post-Debridement Measurements/Treatment WC - Nurse 2 - General Ulcer CM Notes Start: 04/04/18 08:11 Freq: Status: Active Protocol: Activity Type Activity Date Activity User E-Sign Co-Sign Detail Recorded Client Recorded Date Recorded By Document 04/04/18 09:20 [email or web address] [id number] 04/04/18 09:20 [email or web address] 04/04/18 09:20 Wound Center Nurse 2 #1- RIGHT SCAPULA -Time 09:20 -Correct Patient Yes -Correct Side, Site, Position Yes -Correct Procedure Yes -Procedure Performed No -Wound/Ulcer Outcome Not Healed -Ulcer Cleansing Rinsed/ Irrigated with Saline -Foul Odor after Cleansing No -Bleeding Controlled with NA -Treatment Response Procedure Tolerated Well Pain Scale: 0-10 Numeric Is Patient Pain Free? Yes No debridement was completed today Assessment/Plan Active Problems Infected sebaceous cyst of skin (Chronic) Diabetes mellitus (Chronic) Assessment: This is a 72-year-old female with an apparent infected sebaceous cyst in the right scapular area. The cyst appears to have been present for many years prior to the infection, which developed in July 2017. Very little had been rendered in terms of care, but for a brief course of oral antibiotics in July 2017. Because the patient cannot reach the area involved, no local care had been implemented prior to her presentation here. A culture the patient's wound, obtained at her last visit, was positive for MRSA. The patient is to be started on doxycycline 100 mg p.o. twice daily for total of 7 days. There has been some difficulty in arranging home health nursing care. In addition, the patient appears to have no friends, acquaintances, or family members who can assist in the wound management. As a result, there has been no wound care since the patient's last visit 1 week ago. Despite this fact, the site on the right upper back appears improved. We are in the process of insurance preauthorization for a wide unroofing and debridement of the site. Preauthorization and approval is awaited. The patient is to return in 1 week for reassessment. It has been discussed with the patient the fact that the site could become fluctuant and ultimately draining purulent material, if an underlying cavity is present. We will temporize, and determine how the infected site reaction to current measures. The patient's labs have been reviewed, and are relatively unremarkable. She has a mild anemia with a hemoglobin of 11.1 and hematocrit of 33.7. Platelet count is 214,000. MERLE globin A1c is 9.0. Patient's potassium is 3.7. Sodium is 139, chloride 104, BUN 13, creatinine 0.9, glucose 202. Plan: The patient is to maintain a dry sterile gauze dressing. She is aware that fluctuance may ultimately occur, and that the wound may ultimately drain. In the interim, we are to place patient on doxycycline 100 mg p.o. twice daily. Patient will follow-up in 1 week for reassessment. We are waiting insurance preauthorization for a surgical unroofing and debridement procedure. We have discussed the options of management, in a great deal of detail. One option is to stay the current course, in the hopes that the abscess cavity will eventually completely heal, without residual infection. In such case, it would then be possible to intervene surgically, excise the entire cyst area, and anticipate that primary closure could be a possibility. Alternatively, surgical intervention could be considered prior to complete closure of the open infected wound, in which case excision could be performed, but the wound would require healing by secondary intention, which would necessitate additional weeks of visit to the wound center, if not months of visits. These 2 options have been thoroughly explained to the patient. She is somewhat frustrated and a bit combative today with respect to the current state of affairs. The options of management have been discussed in great detail, and the patient appears to favor a more aggressive approach which would include excision of the entire infected cyst area, and subsequent healing by secondary intention, which could include options such as the wound VAC or skin graft substitutes. It has been explained that either surgical option would require insurance preauthorization, a process which will be initiated. Optimization of the patient's diabetes mellitus has been recommended. We will seek preauthorization for surgical intervention, which will include surgical unroofing and debridement of the infected right upper back wound. Patient will return in 1 week for reevaluation. Influenza vaccine was not administered today. Patient is not a smoker. Patient weighs 180 pounds. She stands 5 feet 3 inches tall. My is 31.9, which places her in a class I category. Weight loss has been recommended, with collaboration with her primary care physician.
[2018-04-11 08:06] VITALS: BP 156/92; PULSE 91; RESP 18; TEMP 36.7
--- NOTE | 2018-04-11 08:32 | HP.PCM_ITS ---
(1) Infected sebaceous cyst of skin Status: Chronic Current Visit: Yes Code(s): L72.3 - Sebaceous cyst; L08.9 - Local infection of the skin and subcutaneous tissue, unspecified (2) Obesity (BMI 30.0-34.9) Status: Chronic Current Visit: No Code(s): E66.9 - Obesity, unspecified (3) Hyperlipidemia Status: Chronic Current Visit: No Code(s): E78.5 - Hyperlipidemia, unspecified (4) Diabetes mellitus Status: Chronic Current Visit: Yes Qualifiers: Diabetes mellitus type: type 2 Code(s): E11.9 - Type 2 diabetes mellitus without complications (5) Hypertension Status: Chronic Current Visit: No Qualifiers: Code(s): I10 - Essential (primary) hypertension (6) Colitis Status: Chronic Current Visit: No Code(s): K52.9 - Noninfective gastroenteritis and colitis, unspecified History of Present Illness Date of Service: 04/11/18 Chief Complaint: Chronic, nonhealing infected sebaceous cyst, right scapular area History of Wound: This is a 72-year-old female who presented with an infected sebaceous cyst cavity which has been present since July 2017. On July 07, 2017, patient noted purulent drainage from the cyst in the right scapular area. She indicates that there was a bump at this site prior to the development of an infection. This was presumably a small subcutaneous cyst. The patient presented to her primary care physician, who treated the patient with oral antibiotics for approximately 10 days. No cultures were performed. The patient' s primary care physician conveyed his expectation that the site would subsequently heal, but it has not done so since it initially occurred in July 2017. When the patient was asked how she has been treating the site, she indicateed that I cannot even reach it. In other words, no local care had been implemented. The patient lives alone, and has no family members or neighbors who can assist. Upon initial presentation, the patient complained of a cyst that will not go away. The patient is known to be diabetic, and indicates that her hemoglobin A1c runs generally between 7 and 9. The patient presents today where it appears as though the site has essentially healed, with only a small eschar. There is no erythema or sign of infection. Past Medical History Past Medical History: Chronic Problems Infected sebaceous cyst of skin (Chronic) Obesity (BMI 30.0-34.9) (Chronic) Hyperlipidemia (Chronic) Diabetes mellitus (Chronic) Hypertension (Chronic) Colitis (Chronic) Surgical History: - - Patient is undergone thyroidectomy in July 2017. She is undergone bilateral vein stripping procedures. The ganglion has been excised from her right wrist. She is undergone laparoscopy in the past. She has had bilateral cataract surgery. Right thumb trigger finger surgery has been performed in the past. The patient is a Ab0. Allergies/Adverse Reactions: Allergies acetaminophen [From Vicodin] Allergy (Verified 01/09/18 14:02) Itching cat dander Allergy (Verified 01/09/18 14:04) Unknown dog dander Allergy (Verified 01/09/18 14:04) Unknown hydrocodone bitartrate [From Vicodin] Allergy (Verified 01/09/18 14:02) Itching levofloxacin [From Levaquin] Adverse Reaction (Verified 01/09/18 14:40) Rash beer Adverse Reaction (Uncoded 01/09/18 14:04) Unknown wine Adverse Reaction (Uncoded 01/09/18 14:04) Unknown Home Medications: Ambulatory Orders Medication Instructions Recorded Ascorbic Acid [Vitamin C] 1,000 mg PO DAILY@0800 01/11/14 Aspirin [Aspirin, Baby] 81 mg PO DAILY@0800 01/11/14 Atorvastatin Calcium [Lipitor] 20 mg PO QHS 01/11/14 Calcium Carb/Vitamin D 1 tab PO BIDCM 01/11/14 [Caltrate-600 With Vit D Tab] Celecoxib [Celebrex] 200 mg PO DAILY 01/11/14 Glimepiride [Amaryl] 4 mg PO BID 01/11/14 Lisinopril/Hydrochlorothiazide 1 tablet PO DAILY 01/11/14 [Zestoretic 20/25 Tablet] Multivit-Min/FA/Lycopene/Lut 1 each PO DAILY 01/11/14 [Centrum Silver Tablet] Tizanidine HCl [Zanaflex] 2 mg PO BID 01/11/14 traMADol [Ultram (G)] 100 mg PO TID 01/11/14 Esomeprazole Mag Trihydrate mg PO 01/09/18 [Nexium] Guaifenesin/Pseudoephedrne HCl 1 each PO 01/09/18 [Mucinex D ER 1,200-120 mg Tab] Insulin NPH/Reg 70/30 [Novolin 60 units SC QHS 01/09/18 70/30] Levothyroxine [Synthroid] 125 mcg PO DAILY 01/09/18 Montelukast [Singulair] 10 mg PO DAILY 01/09/18 Vit A/Vit C/Vit E/Zinc/Copper 1 each PO BID 01/09/18 [Preservision Areds Softgel] - Family History Paternal - - Patient is uncertain as to her father's medical history. Her mother at age of 52 with a history of alcoholism and hepatic cirrhosis. Smoking Status: Never smoker Tobacco Use: Non-smoker Review of Systems Constitutional: Denies: Chills, Fever, Weight Change Eyes: Denies: Pain, Vision Change HEENT: Denies: Difficulty Hearing, Difficulty Swallowing, Sinus Congestion Cardiovascular: Denies: Chest Pain, Palpitations Respiratory: Denies: Cough, Shortness of Breath Gastrointestinal: Denies: Diarrhea, Nausea, Vomiting Genitourinary: Denies: Dysuria, Hematuria Endocrine: Denies: Heat/ Cold Intolerance, Polydipsia, Polyuria Hematologic/ Lymphatic: Denies: Easy Bruising, Easy Bleeding - Physical Exam Vital Signs Temp Pulse Resp BP 98.0 F 91 18 156/92 H 04/11/18 08:06 04/11/18 08:06 04/11/18 08:06 04/11/18 08:06 General: Alert, Oriented x3, Cooperative, No apparent distress, Well developed, Well nourished HEENT: Atraumatic, PERRLA, EOMI, Normocephalic Oral: Moist Mucosa Neck: No JVD Lungs: Normal air movement Abdomen: Non-Distended Extremities: No clubbing, No cyanosis, No edema, No Calf Tenderness Skin: No rashes, - - The infected sebaceous cyst site on the right upper back, in the scapular area, appears essentially healed, with only a very small eschar remaining. There is no fluctuance, erythema, or drainage. No sign of infection or cellulitis. Wound Measurements and Assessment WC - Nurse 1 - General Ulcer Measurement Start: 04/04/18 08:11 Freq: Status: Active Protocol: Activity Type Activity Date Activity User E-Sign Co-Sign Detail Recorded Client Recorded Date Recorded By Document 04/11/18 08:06 ME [id number] 04/11/18 08:10 MT 04/11/18 08:06 Wound Center Nurse 1 [Ulcer Assessment] #1- RIGHT SCAPULA -Combined with other wound No -Current Size (cm) - Length 0.1 -Current Size (cm) - Width 0.1 -Current Size (cm) - Depth 0.1 -Total Square Cm 0.01 -Photo Taken No -Epithelialization Large 67-100% -Tunneling No -Undermining/Tunneling No -Circular Undermining No -Exudate Amt None Present (0 %) -Wound Margin Distinct, Outline Attached -Granulation Amt None Present (0 %) -Slough/Fibrin Yes -Necrosis Amt Medium (34-66%) -Necrotic Tissue Type Adherent Slough -Texture (Eve-wound Skin Appearance) Not Assessed Callus -Moisture (Eve-wound Skin Appearance No Abnormality ) Assessed -Color (Eve-wound Skin Appearance) No Abnormality Assessed -Temperature (Eve-wound Skin No Abnormality Appearance) (Pt Warm) -Tenderness on Palpation (Eve-wound No Skin Appearance) -Ulcer Cleansing Rinsed/ Irrigated with Saline -Foul Odor after Cleansing No -Anesthetic Used 5% Lidocaine Gel [Edema Assessment] -Lower Limb Edema Present NA WC - Nurse 2 - General Ulcer CM Notes Start: 04/04/18 08:11 Freq: Status: Active Protocol: Activity Type Activity Date Activity User E-Sign Co-Sign Detail Recorded Client Recorded Date Recorded By Document 04/11/18 08:16 [email or web address] [id number] 04/11/18 08:18 04/11/18 08:16 Wound Center Nurse 2 [Procedure/Treatment] #1- RIGHT SCAPULA -Correct Patient No -Correct Side, Site, Position No -Correct Procedure No -Procedure Performed No -Post Debridement Size (cm) - Length 0.1 -Post Debridement Size (cm) - Width 0.1 -Post Debridement Size (cm) - Depth 0.1 -Total Square Cm 0.01 -Wound/Ulcer Outcome Not Healed -Ulcer Cleansing Rinsed/ Irrigated with Saline -Foul Odor after Cleansing No -Bioengineered Tissue No -Bleeding Controlled with NA -Treatment Response Procedure Tolerated Well [See Physician Procedure note for Specifics] Pain Scale: 0-10 Numeric [Pain] -Is Patient Pain Free? Yes Musculoskeletal: No Muscle Wasting Neurological: Cranial nerves II-XII grossly intact, Neuro grossly intact Psych/Mental Status: Normal Affect, Appropriate, Alert and oriented to time, place, person, mood and affect Debridement Note Post-Debridement Measurements/Treatment WC - Nurse 2 - General Ulcer CM Notes Start: 04/04/18 08:11 Freq: Status: Active Protocol: Activity Type Activity Date Activity User E-Sign Co-Sign Detail Recorded Client Recorded Date Recorded By Document 04/04/18 09:20 JS [id number] 04/04/18 09:20 JS Document 04/11/18 08:16 JF [id number] 04/11/18 08:18 JF 04/04/18 04/11/18 09:20 08:16 Wound Center Nurse 2 #1- RIGHT SCAPULA -Time 09:20 -Correct Patient Yes No -Correct Side, Site, Position Yes No -Correct Procedure Yes No -Procedure Performed No No -Post Debridement Size (cm) - Length 0.1 -Post Debridement Size (cm) - Width 0.1 -Post Debridement Size (cm) - Depth 0.1 -Total Square Cm 0.01 -Wound/Ulcer Outcome Not Healed Not Healed -Ulcer Cleansing Rinsed/ Rinsed/ Irrigated with Irrigated with Saline Saline -Foul Odor after Cleansing No No -Bioengineered Tissue No -Bleeding Controlled with NA NA -Treatment Response Procedure Procedure Tolerated Well Tolerated Well Pain Scale: 0-10 Numeric Is Patient Pain Free? Yes Yes No debridement was completed today Assessment/Plan Active Problems Infected sebaceous cyst of skin (Chronic) Diabetes mellitus (Chronic) Assessment: This is a 72-year-old female with an apparent infected sebaceous cyst in the right scapular area. The cyst appears to have been present for many years prior to the infection, which developed in July 2017. Very little had been rendered in terms of care, but for a brief course of oral antibiotics in July 2017. Because the patient cannot reach the area involved , no local care had been implemented prior to her presentation here. At this juncture, the infected sebaceous cyst site in the right scapular area appears to be essentially healed. We have discussed the options of management on several occasions, and again today. It appears as though the cyst, or a portion thereof, persists in the area of the right scapular area. Therefore, it is quite likely that this will again become infected at a future date, and whether this occurs in the short-term future or long-term future cannot be predicted. It is felt that the definitive option of management would be to excise the underlying cyst surgically, which would then eliminate the risk of problems in the future. This would entail excision, followed by a period of healing by secondary intention, during which advanced wound healing techniques could be implemented, such as the wound VAC or skin substitutes. These issues have been discussed with the patient. Insurance preauthorization has been obtained, and the patient is to be scheduled for surgical intervention in the near future. Until which time surgery is performed, the patient will continue with her follow-up visits at the wound center, and will be scheduled for follow- up in 2-3 weeks. It has been discussed with the patient the fact that the site could become fluctuant and ultimately draining purulent material, in which case the patient would seek medical attention. The patient's labs have been reviewed , and are relatively unremarkable. She has a mild anemia with a hemoglobin of 11.1 and hematocrit of 33.7. Platelet count is 214,000. MERLE globin A1c is 9.0. Patient's potassium is 3.7. Sodium is 139, chloride 104, BUN 13, creatinine 0.9, glucose 202. Plan: The patient is to maintain a dry sterile gauze dressing. She is aware that fluctuance may ultimately occur, and that the wound may ultimately drain. In the interim, the patient is to continue until completion of her prescription for doxycycline 100 mg p.o. twice daily, which will be completed within the next 24-48 hours. Patient will follow-up in 3 weeks for reassessment. We have discussed the options of management, in a great deal of detail. Surgery is to be undertaken in the near future for definitive management. Optimization of the patient's diabetes mellitus has been recommended. Influenza vaccine was not administered today. Patient is not a smoker. Patient weighs 180 pounds. She stands 5 feet 3 inches tall. My is 31.9, which places her in a class I category. Weight loss has been recommended, with collaboration with her primary care physician.
== END 2018-05-02 23:59 ==
LOC: WC 08:00
PROVIDERS: Visit Provider Surgery
DX: L72.3 Sebaceous cyst (principal); E11.9 Type 2 diabetes mellitus without complications; I10 Essential (primary) hypertension; E78.5 Hyperlipidemia, unspecified; E66.9 Obesity, unspecified; Z68.31 Body mass index [BMI] 31.0-31.9, adult; Z71.3 Dietary counseling and surveillance; L08.9 Local infection of the skin and subcutaneous tissue, unspecified
CPT/HCPCS: 99212; 99213; G0463

== ENCOUNTER 2018-05-16 08:11 | Outpatient (RCR) | payer MEDICARE, OTHER, SELFPAY ==
[2018-05-03 00:48] VITALS: BP 156/92; PULSE 91; RESP 18; TEMP 36.7
[2018-05-16 08:19] VITALS: BP 131/67; PULSE 77; RESP 18; TEMP 36.3
--- NOTE | 2018-05-16 08:41 | PCM.WC.HP ---
(1) Infected sebaceous cyst of skin Status: Chronic Current Visit: Yes Code(s): L72.3 - Sebaceous cyst; L08.9 - Local infection of the skin and subcutaneous tissue, unspecified (2) Obesity (BMI 30.0-34.9) Status: Chronic Current Visit: No Code(s): E66.9 - Obesity, unspecified (3) Hyperlipidemia Status: Chronic Current Visit: No Code(s): E78.5 - Hyperlipidemia, unspecified (4) Diabetes mellitus Status: Chronic Current Visit: No Code(s): E11.9 - Type 2 diabetes mellitus without complications (5) Hypertension Status: Chronic Current Visit: No Qualifiers: Code(s): I10 - Essential (primary) hypertension (6) Colitis Status: Chronic Current Visit: No Code(s): K52.9 - Noninfective gastroenteritis and colitis, unspecified History of Present Illness Date of Service: 05/16/18 Chief Complaint: Chronic, nonhealing infected sebaceous cyst, right scapular area History of Wound: This is a 72-year-old female who presented with an infected sebaceous cyst cavity which has been present since July 2017. On July 07, 2017, patient noted purulent drainage from the cyst in the right scapular area. She indicates that there was a bump at this site prior to the development of an infection. This was presumably a small subcutaneous cyst. The patient presented to her primary care physician, who treated the patient with oral antibiotics for approximately 10 days. No cultures were performed. The patient's primary care physician conveyed his expectation that the site would subsequently heal, but it has not done so since it initially occurred in July 2017. When the patient was asked how she has been treating the site, she indicateed that I cannot even reach it. In other words, no local care had been implemented. The patient lives alone, and has no family members or neighbors who can assist. Upon initial presentation, the patient complained of a cyst that will not go away. The patient is known to be diabetic, and indicates that her hemoglobin A1c runs generally between 7 and 9. Past Medical History Past Medical History: Chronic Problems Infected sebaceous cyst of skin (Chronic) Obesity (BMI 30.0-34.9) (Chronic) Hyperlipidemia (Chronic) Diabetes mellitus (Chronic) Hypertension (Chronic) Colitis (Chronic) Surgical History: - - Patient is undergone thyroidectomy in July 2017. She is undergone bilateral vein stripping procedures. The ganglion has been excised from her right wrist. She is undergone laparoscopy in the past. She has had bilateral cataract surgery. Right thumb trigger finger surgery has been performed in the past. The patient is a Ab0. Allergies/Adverse Reactions: Allergies acetaminophen [From Vicodin] Allergy (Verified 01/09/18 14:02) Itching cat dander Allergy (Verified 01/09/18 14:04) Unknown dog dander Allergy (Verified 01/09/18 14:04) Unknown hydrocodone bitartrate [From Vicodin] Allergy (Verified 01/09/18 14:02) Itching levofloxacin [From Levaquin] Adverse Reaction (Verified 01/09/18 14:40) Rash beer Adverse Reaction (Uncoded 01/09/18 14:04) Unknown wine Adverse Reaction (Uncoded 01/09/18 14:04) Unknown Home Medications: Ambulatory Orders Medication Instructions Recorded Ascorbic Acid [Vitamin C] 1,000 mg PO DAILY@0800 01/11/14 Aspirin [Aspirin, Baby] 81 mg PO DAILY@0800 01/11/14 Atorvastatin Calcium [Lipitor] 20 mg PO QHS 01/11/14 Calcium Carb/Vitamin D 1 tab PO BIDCM 01/11/14 [Caltrate-600 With Vit D Tab] Celecoxib [Celebrex] 200 mg PO DAILY 01/11/14 Glimepiride [Amaryl] 4 mg PO BID 01/11/14 Lisinopril/Hydrochlorothiazide 1 tablet PO DAILY 01/11/14 [Zestoretic 20/25 Tablet] Multivit-Min/FA/Lycopene/Lut 1 each PO DAILY 01/11/14 [Centrum Silver Tablet] Tizanidine HCl [Zanaflex] 2 mg PO BID 01/11/14 traMADol [Ultram (G)] 100 mg PO TID 01/11/14 Esomeprazole Mag Trihydrate mg PO 01/09/18 [Nexium] Guaifenesin/Pseudoephedrne HCl 1 each PO 01/09/18 [Mucinex D ER 1,200-120 mg Tab] Insulin NPH/Reg 70/30 [Novolin 60 units SC QHS 01/09/18 70/30] Levothyroxine [Synthroid] 125 mcg PO DAILY 01/09/18 Montelukast [Singulair] 10 mg PO DAILY 01/09/18 Vit A/Vit C/Vit E/Zinc/Copper 1 each PO BID 01/09/18 [Preservision Areds Softgel] - Family History Paternal - - Patient is uncertain as to her father's medical history. Her mother at age of 52 with a history of alcoholism and hepatic cirrhosis. Smoking Status: Never smoker Tobacco Use: Non-smoker Review of Systems Constitutional: Denies: Chills, Fever, Weight Change Eyes: Denies: Pain, Vision Change HEENT: Denies: Difficulty Hearing, Difficulty Swallowing, Sinus Congestion Cardiovascular: Denies: Chest Pain, Palpitations Respiratory: Denies: Cough, Shortness of Breath Gastrointestinal: Denies: Diarrhea, Nausea, Vomiting Genitourinary: Denies: Dysuria, Hematuria Endocrine: Denies: Heat/ Cold Intolerance, Polydipsia, Polyuria Hematologic/ Lymphatic: Denies: Easy Bruising, Easy Bleeding - Physical Exam Vital Signs Temp Pulse Resp BP 97.3 F L 77 18 131/67 H 05/16/18 08:19 05/16/18 08:19 05/16/18 08:19 05/16/18 08:19 General: Alert, Oriented x3, Cooperative, No apparent distress, Well developed, Well nourished HEENT: Atraumatic, PERRLA, EOMI, Normocephalic Oral: Moist Mucosa Neck: No JVD Lungs: Normal air movement Abdomen: Non-Distended Extremities: No clubbing, No cyanosis, No edema, No Calf Tenderness Skin: - - The skin overlying the underlying sebaceous cyst cavity appears to be nearly healed. There is a punctate opening which remains, with a very small amount of purulent material which is expressed with manual pressure. This has been cultured by swab today, both aerobically and anaerobically. We will await the cultures. There is no evidence of cellulitis. Wound Measurements and Assessment WC - Nurse 1 - General Ulcer Measurement Start: 05/16/18 08:19 Freq: Status: Active Protocol: Activity Type Activity Date Activity User E-Sign Co-Sign Detail Recorded Client Recorded Date Recorded By Document 05/16/18 08:19 DL [id number] 05/16/18 08:26 DL 05/16/18 08:19 Wound Center Nurse 1 [Ulcer Assessment] #1- RIGHT SCAPULA -Current Size (cm) - Length 0.5 -Current Size (cm) - Width 0.5 -Current Size (cm) - Depth 0.1 -Total Square Cm 0.25 -Photo Taken Yes -Exudate Amt None Present (0 %) -Wound Margin Thickened -Granulation Amt None Present (0 %) -Necrosis Amt Large (67-100%) -Necrotic Tissue Type Adherent Slough -Structure Exposed N/A -Texture (Eve-wound Skin Appearance) No Abnormality -Moisture (Eve-wound Skin Appearance No Abnormality ) -Color (Eve-wound Skin Appearance) No Abnormality -Temperature (Eve-wound Skin No Abnormality Appearance) (Pt Warm) -Ulcer Cleansing Rinsed/ Irrigated with Saline -Foul Odor after Cleansing No -Anesthetic Used 4% Lidocaine Solution - Nurse 2 - General Ulcer CM Notes Start: 05/16/18 08:19 Freq: Status: Active Protocol: Activity Type Activity Date Activity User E-Sign Co-Sign Detail Recorded Client Recorded Date Recorded By Document 05/16/18 08:29 [id number] 05/16/18 08:37 05/16/18 08:29 Wound Center Nurse 2 [Procedure/Treatment] -Time 08:37 -Correct Patient Yes -Correct Side, Site, Position Yes -Correct Procedure Yes -Procedure Performed No -Wound/Ulcer Outcome Not Healed -Ulcer Cleansing Rinsed/ Irrigated with Saline -Foul Odor after Cleansing No -Bioengineered Tissue No -Bleeding Controlled with NA [See Physician Procedure note for Specifics] Pain Scale: 0-10 Numeric [Pain] -Is Patient Pain Free? Yes Musculoskeletal: No Muscle Wasting Neurological: Cranial nerves II-XII grossly intact, Neuro grossly intact Psych/Mental Status: Normal Affect, Appropriate, Alert and oriented to time, place, person, mood and affect Debridement Note Post-Debridement Measurements/Treatment - Nurse 2 - General Ulcer CM Notes Start: 05/16/18 08:19 Freq: Status: Active Protocol: Activity Type Activity Date Activity User E-Sign Co-Sign Detail Recorded Client Recorded Date Recorded By Document 05/16/18 08:29 [id number] 05/16/18 08:37 05/16/18 08:29 Wound Center Nurse 2 #1- RIGHT SCAPULA -Time 08:37 -Correct Patient Yes -Correct Side, Site, Position Yes -Correct Procedure Yes -Procedure Performed No -Wound/Ulcer Outcome Not Healed -Ulcer Cleansing Rinsed/ Irrigated with Saline -Foul Odor after Cleansing No -Bioengineered Tissue No -Bleeding Controlled with NA Pain Scale: 0-10 Numeric Is Patient Pain Free? Yes No debridement was completed today Assessment/Plan Active Problems Infected sebaceous cyst of skin (Chronic) Assessment: This is a 72-year-old female with an apparent infected sebaceous cyst in the right scapular area. The cyst appears to have been present for many years prior to the infection, which developed in July 2017. Very little had been rendered in terms of care, but for a brief course of oral antibiotics in July 2017. Because the patient could not reach the area involved, no local care had been implemented prior to her presentation here. At this juncture, the infected sebaceous cyst site in the right scapular area appears to be nearly healed. Only a small punctate opening persists, with a very small amount of purulent drainage which is expressed with manual pressure. We have discussed the options of management on several occasions, and again today. It appears as though the cyst, or a portion thereof, persists in the area of the right scapular area. Therefore, it is quite likely that this will again become infected at a future date, and whether this occurs in the short-term future or long-term future cannot be predicted. Additionally, the site is not likely to heal by conservative means, as it has persisted despite all measures to date. It is felt that the definitive option of management would be to excise the underlying cyst surgically, which would then eliminate the risk of problems in the future. This would entail excision, followed by a period of healing by secondary intention, during which advanced wound healing techniques could be implemented, such as the wound VAC or skin substitutes. These issues have been discussed with the patient. Insurance preauthorization has been obtained, and the patient is to be scheduled for surgical intervention in the near future. Until which time surgery is performed, the patient will continue with her follow-up visits at the wound center, and will be scheduled for follow-up in 3 weeks. It has been discussed with the patient the fact that the site could become fluctuant and ultimately draining purulent material, in which case the patient would seek medical attention. The patient's labs have been reviewed, and are relatively unremarkable. She has a mild anemia with a hemoglobin of 11.1 and hematocrit of 33.7. Platelet count is 214,000. MERLE globin A1c is 9.0. Patient's potassium is 3.7. Sodium is 139, chloride 104, BUN 13, creatinine 0.9, glucose 202. Finally, the patient has had compliance issues in the past. She has missed appointments, and has had numerous difficulties in obtaining transportation to our facility. I have discussed with her the fact that her compliance with recommended measures postoperatively will be essential to the healing and management process. Otherwise, her prognosis for healing, even after surgical intervention, will be compromised. Even despite the discussion in this regard, the patient appears on willing to commit to full compliance with those measures which may be recommended following surgical intervention, and the manner in which this may compromise her progress has been thoroughly explained. Unfortunately, there have also been issues with respect to home health nursing care, which has been refused because the patient is mobile and not homebound. Nonetheless, the patient's wound is on her back, preventing her the ability to visualize and manage her wound without assistance. Plan: The patient is to maintain a dry sterile gauze dressing. She is aware that fluctuance may ultimately occur, and that the wound may ultimately drain. Patient will follow-up in 3 weeks for reassessment. We have discussed the options of management, in a great deal of detail. Surgery is to be undertaken in the near future for definitive management. Optimization of the patient's diabetes mellitus has been recommended. Cultures have been obtained [facility] today, and results will be awaited. Influenza vaccine was not administered today. Patient is not a smoker. Patient weighs 180 pounds. She stands 5 feet 3 inches tall. My is 31.9, which places her in a class I category. Weight loss has been recommended, with collaboration with her primary care physician.
== END 2018-06-02 23:59 ==
LOC: WC 08:11
PROVIDERS: Visit Provider Surgery
DX: L72.3 Sebaceous cyst (principal); L08.9 Local infection of the skin and subcutaneous tissue, unspecified; E78.5 Hyperlipidemia, unspecified; E11.9 Type 2 diabetes mellitus without complications; I10 Essential (primary) hypertension
CPT/HCPCS: 87070; 87075; 87077; 87186; 87205; 99211; G0463

== ENCOUNTER 2018-06-06 08:04 | Outpatient (RCR) | payer MEDICARE, OTHER, SELFPAY ==
[2018-06-03 00:56] VITALS: BP 131/67; PULSE 77; RESP 18; TEMP 36.3
[2018-06-06 08:10] VITALS: BP 147/92; PULSE 88; RESP 18; TEMP 36
--- NOTE | 2018-06-06 08:17 | PCM.WC.HP ---
(1) Infected sebaceous cyst of skin Status: Chronic Current Visit: Yes Code(s): L72.3 - Sebaceous cyst; L08.9 - Local infection of the skin and subcutaneous tissue, unspecified (2) Obesity (BMI 30.0-34.9) Status: Chronic Current Visit: No Code(s): E66.9 - Obesity, unspecified (3) Hyperlipidemia Status: Chronic Current Visit: No Code(s): E78.5 - Hyperlipidemia, unspecified (4) Diabetes mellitus Status: Chronic Current Visit: No Code(s): E11.9 - Type 2 diabetes mellitus without complications (5) Hypertension Status: Chronic Current Visit: No Qualifiers: Code(s): I10 - Essential (primary) hypertension (6) Colitis Status: Chronic Current Visit: No Code(s): K52.9 - Noninfective gastroenteritis and colitis, unspecified History of Present Illness Date of Service: 06/06/18 Chief Complaint: Chronic, nonhealing infected sebaceous cyst, right scapular area History of Wound: This is a 72-year-old female who presented with an infected sebaceous cyst cavity which has been present since July 2017. On July 07, 2017, patient noted purulent drainage from the cyst in the right scapular area. She indicates that there was a bump at this site prior to the development of an infection. This was presumably a small subcutaneous cyst. The patient presented to her primary care physician, who treated the patient with oral antibiotics for approximately 10 days. No cultures were performed. The patient's primary care physician conveyed his expectation that the site would subsequently heal, but it has not done so since it initially occurred in July 2017. When the patient was asked how she has been treating the site, she indicateed that I cannot even reach it. In other words, no local care had been implemented. The patient lives alone, and has no family members or neighbors who can assist. Upon initial presentation, the patient complained of a cyst that will not go away. The patient is known to be diabetic, and indicates that her hemoglobin A1c runs generally between 7 and 9. Past Medical History Past Medical History: Chronic Problems Infected sebaceous cyst of skin (Chronic) Obesity (BMI 30.0-34.9) (Chronic) Hyperlipidemia (Chronic) Diabetes mellitus (Chronic) Hypertension (Chronic) Colitis (Chronic) Surgical History: - - Patient is undergone thyroidectomy in July 2017. She is undergone bilateral vein stripping procedures. The ganglion has been excised from her right wrist. She is undergone laparoscopy in the past. She has had bilateral cataract surgery. Right thumb trigger finger surgery has been performed in the past. The patient is a Ab0. Allergies/Adverse Reactions: Allergies acetaminophen [From Vicodin] Allergy (Verified 01/09/18 14:02) Itching cat dander Allergy (Verified 01/09/18 14:04) Unknown dog dander Allergy (Verified 01/09/18 14:04) Unknown hydrocodone bitartrate [From Vicodin] Allergy (Verified 01/09/18 14:02) Itching levofloxacin [From Levaquin] Adverse Reaction (Verified 01/09/18 14:40) Rash beer Adverse Reaction (Uncoded 01/09/18 14:04) Unknown wine Adverse Reaction (Uncoded 01/09/18 14:04) Unknown Home Medications: Ambulatory Orders Medication Instructions Recorded Ascorbic Acid [Vitamin C] 1,000 mg PO DAILY@0800 01/11/14 Aspirin [Aspirin, Baby] 81 mg PO DAILY@0800 01/11/14 Atorvastatin Calcium [Lipitor] 20 mg PO QHS 01/11/14 Calcium Carb/Vitamin D 1 tab PO BIDCM 01/11/14 [Caltrate-600 With Vit D Tab] Celecoxib [Celebrex] 200 mg PO DAILY 01/11/14 Glimepiride [Amaryl] 4 mg PO BID 01/11/14 Lisinopril/Hydrochlorothiazide 1 tablet PO DAILY 01/11/14 [Zestoretic 20/25 Tablet] Multivit-Min/FA/Lycopene/Lut 1 each PO DAILY 01/11/14 [Centrum Silver Tablet] Tizanidine HCl [Zanaflex] 2 mg PO BID 01/11/14 traMADol [Ultram (G)] 100 mg PO TID 01/11/14 Esomeprazole Mag Trihydrate mg PO 01/09/18 [Nexium] Guaifenesin/Pseudoephedrne HCl 1 each PO 01/09/18 [Mucinex D ER 1,200-120 mg Tab] Insulin NPH/Reg 70/30 [Novolin 60 units SC QHS 01/09/18 70/30] Levothyroxine [Synthroid] 125 mcg PO DAILY 01/09/18 Montelukast [Singulair] 10 mg PO DAILY 01/09/18 Vit A/Vit C/Vit E/Zinc/Copper 1 each PO BID 01/09/18 [Preservision Areds Softgel] - Family History Paternal - - Patient is uncertain as to her father's medical history. Her mother at age of 52 with a history of alcoholism and hepatic cirrhosis. Smoking Status: Never smoker Tobacco Use: Non-smoker Review of Systems Constitutional: Denies: Chills, Fever, Weight Change Eyes: Denies: Pain, Vision Change HEENT: Denies: Difficulty Hearing, Difficulty Swallowing, Sinus Congestion Cardiovascular: Denies: Chest Pain, Palpitations Respiratory: Denies: Cough, Shortness of Breath Gastrointestinal: Denies: Diarrhea, Nausea, Vomiting Genitourinary: Denies: Dysuria, Hematuria Endocrine: Denies: Heat/ Cold Intolerance, Polydipsia, Polyuria Hematologic/ Lymphatic: Denies: Easy Bruising, Easy Bleeding - Physical Exam Vital Signs Temp Pulse Resp BP 96.8 F L 88 18 147/92 H 06/06/18 08:10 06/06/18 08:10 06/06/18 08:10 06/06/18 08:10 General: Alert, Oriented x3, Cooperative, No apparent distress, Well developed, Well nourished HEENT: Atraumatic, PERRLA, EOMI, Normocephalic Oral: Moist Mucosa Neck: No JVD, Negative Carotid Bruits, No Nodes, No Nuchal Rigidity, Trachea Midline Lungs: Clear to auscultation, Normal air movement, No rhonchi, No wheeze, No rales Cardiovascular: Regular rate, Regular Rhythm, Normal S1, Normal S2, No murmurs Abdomen: Soft, Non Tender, Non-Distended, Obese Extremities: No clubbing, No cyanosis, No edema, No Calf Tenderness Skin: No rashes, - - The site on the right upper back/scapular area is little changed. There is no drainage. There is no sign of infection or cellulitis. There is a very small dry eschar present. Wound Measurements and Assessment WC - Nurse 1 - General Ulcer Measurement Start: 06/06/18 08:09 Freq: Status: Active Protocol: Activity Type Activity Date Activity User E-Sign Co-Sign Detail Recorded Client Recorded Date Recorded By Document 06/06/18 08:10 [id number] 06/06/18 08:11 06/06/18 08:10 Wound Center Nurse 1 [Ulcer Assessment] #1- RIGHT SCAPULA -Combined with other wound No -Current Size (cm) - Length 0.3 -Current Size (cm) - Width 0.3 -Current Size (cm) - Depth 0.1 -Total Square Cm 0.09 -Photo Taken No -Epithelialization None Present -Tunneling No -Undermining/Tunneling No -Circular Undermining No -Classification - Thickness Full Thickness without Exposed Support Structure -Exudate Amt None Present (0 %) -Wound Margin Distinct, Outline Attached -Granulation Amt None Present (0 %) -Granulation Quality N/A -Slough/Fibrin Yes -Necrosis Amt Large (67-100%) -Necrotic Tissue Type Eschar -Structure Exposed Fascia Fat Layer Exposed -Texture (Eve-wound Skin Appearance) No Abnormality Assessed -Moisture (Eve-wound Skin Appearance Assessed ) Dry/Scaly -Color (Eve-wound Skin Appearance) No Abnormality Assessed -Temperature (Eve-wound Skin No Abnormality Appearance) (Pt Warm) -Tenderness on Palpation (Eve-wound No Skin Appearance) -Ulcer Cleansing Rinsed/ Irrigated with Saline -Foul Odor after Cleansing No -Anesthetic Used 4% Lidocaine Solution [Edema Assessment] -Lower Limb Edema Present No WC - Nurse 2 - General Ulcer CM Notes Start: 06/06/18 08:09 Freq: Status: Active Protocol: Activity Type Activity Date Activity User E-Sign Co-Sign Detail Recorded Client Recorded Date Recorded By Document 06/06/18 08:15 [id number] 06/06/18 08:16 06/06/18 08:15 Wound Center Nurse 2 [Procedure/Treatment] #1- RIGHT SCAPULA -Time 08:16 -Correct Patient Yes -Correct Side, Site, Position Yes -Correct Procedure Yes -Procedure Performed No -Wound/Ulcer Outcome Not Healed -Ulcer Cleansing Rinsed/ Irrigated with Saline -Foul Odor after Cleansing No -Bioengineered Tissue No -Bleeding Controlled with NA [See Physician Procedure note for Specifics] Pain Scale: 0-10 Numeric [Pain] -Is Patient Pain Free? Yes Musculoskeletal: No Muscle Wasting Neurological: Cranial nerves II-XII grossly intact, Neuro grossly intact Psych/Mental Status: Normal Affect, Appropriate, Alert and oriented to time, place, person, mood and affect Debridement Note Post-Debridement Measurements/Treatment WC - Nurse 2 - General Ulcer CM Notes Start: 06/06/18 08:09 Freq: Status: Active Protocol: Activity Type Activity Date Activity User E-Sign Co-Sign Detail Recorded Client Recorded Date Recorded By Document 06/06/18 08:15 [email or web address] 06/06/18 08:16 [email or web address] 06/06/18 08:15 Wound Center Nurse 2 #1- RIGHT SCAPULA -Time 08:16 -Correct Patient Yes -Correct Side, Site, Position Yes -Correct Procedure Yes -Procedure Performed No -Wound/Ulcer Outcome Not Healed -Ulcer Cleansing Rinsed/ Irrigated with Saline -Foul Odor after Cleansing No -Bioengineered Tissue No -Bleeding Controlled with NA Pain Scale: 0-10 Numeric Is Patient Pain Free? Yes No debridement was completed today Assessment/Plan Active Problems Infected sebaceous cyst of skin (Chronic) Assessment: This is a 72-year-old female with an apparent infected sebaceous cyst in the right scapular area. The cyst appears to have been present for many years prior to the infection, which developed in July 2017. Very little had been rendered in terms of care, but for a brief course of oral antibiotics in July 2017. Because the patient could not reach the area involved, no local care had been implemented prior to her presentation here. At this juncture, the infected sebaceous cyst site in the right scapular area appears to be nearly healed. Only a small area of eschar persists. We have discussed the options of management on several occasions, and again today. It appears as though the cyst, or a portion thereof, persists in the area of the right scapular area. Therefore, it is quite likely that this will again become infected at a future date, and whether this occurs in the short-term future or long-term future cannot be predicted. Additionally, the site is not likely to heal by conservative means, as it has persisted despite all measures to date. It is felt that the definitive option of management would be to excise the underlying cyst surgically, which would then eliminate the risk of problems in the future. This would entail excision, followed by a period of healing by secondary intention, during which advanced wound healing techniques could be implemented, such as the wound VAC or skin substitutes. These issues have been discussed with the patient. Insurance preauthorization has been obtained, and the patient is to be scheduled for surgical intervention in the near future. The patient has had compliance issues in the past. She has missed appointments, and has had numerous difficulties in obtaining transportation to our facility. I have discussed with her the fact that her compliance with recommended measures postoperatively will be essential to the healing and management process. Otherwise, her prognosis for healing, even after surgical intervention, will be compromised. Even despite the discussion in this regard, the patient appears on willing to commit to full compliance with those measures which may be recommended following surgical intervention, and the manner in which this may compromise her progress has been thoroughly explained. Unfortunately, there have also been issues with respect to home health nursing care, which has been refused because the patient is mobile and not homebound. Nonetheless, the patient's wound is on her back, preventing her the ability to visualize and manage her wound without assistance. Plan: The patient is to maintain a dry sterile gauze dressing. We have discussed the options of management, in a great deal of detail. Surgery is to be undertaken next week for definitive management. The site of the previously infected sebaceous cyst will be surgically excised, and allowed to heal by secondary intention thereafter. Influenza vaccine was not administered today. Patient is not a smoker. Patient weighs 180 pounds. She stands 5 feet 3 inches tall. My is 31.9, which places her in a class I category. Weight loss has been recommended, with collaboration with her primary care physician.
== END 2018-07-02 23:59 ==
LOC: WC 08:04
PROVIDERS: Visit Provider Surgery
DX: L72.3 Sebaceous cyst (principal); L08.9 Local infection of the skin and subcutaneous tissue, unspecified; E11.9 Type 2 diabetes mellitus without complications; E78.5 Hyperlipidemia, unspecified; E66.9 Obesity, unspecified; I10 Essential (primary) hypertension; K52.9 Noninfective gastroenteritis and colitis, unspecified; Z79.899 Other long term (current) drug therapy; Z79.82 Long term (current) use of aspirin
CPT/HCPCS: 99211; G0463